=== PATIENT | female | born 1955 | race Caucasian/White ===

== ENCOUNTER → 2017-11-16 | Outpatient (CLI) | payer MEDICARE ==
[2017-11-16 15:40] LABS: APPEARANCE,URINE SLIGHTLY-CLOUDY; BILIRUBIN,URINE NEGATIVE (NEGATIVE); COLOR,URINE YELLOW; GLUCOSE, URINE NEGATIVE (NEGATIVE); KETONES,URINE 20 mg/dL (NEGATIVE); LEUKOCYTE ESTERASE,URINE LARGE (NEGATIVE); NITRITE,URINE NEGATIVE (NEGATIVE); PROTEIN,URINE NEGATIVE (NEGATIVE); URINE SPECIFIC GRAVITY 1.003; UROBILINOGEN,URINE NEGATIVE mg/dL (<2.0)
== END ==
LOC: OD 14:36
PROVIDERS: ATTEND Urology
DX: R30.0 Dysuria (principal)
CPT/HCPCS: 81001; 87086; 87088; 87186

== ENCOUNTER 2018-05-02 15:29 | Emergency (ER) | payer MEDICARE ==
[2018-05-02] MEDS ORDERED: NORMAL SALINE 1000 ML 1,000 ML IV ONE ×2 (16:16→20:35)
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
--- NOTE | 2018-05-02 16:53 | RADIOLOGY REPORT (SQ) ---
EXAM DESCRIPTION: KUB/ABDOMEN (SINGLE VIEW) COMPLETED DATE/TIME: 05/02/2018 4:44 pm REASON FOR STUDY: Nausea vomiting COMPARISON: 11/08/2011. NUMBER OF VIEWS: One view. TECHNIQUE: Supine radiographic image of the abdomen acquired. LIMITATIONS: None. FINDINGS: BOWEL GAS PATTERN: Normal bowel gas pattern. No dilated loops. CALCIFICATIONS: No suspicious calcifications. SOFT TISSUES: No gross mass or suggestion of organomegaly. HARDWARE: Spinal hardware. BONES: Degenerative changes in the spine particularly at the L3-L4 disc level. No acute findings. OTHER: No other significant finding. IMPRESSION: NO RADIOGRAPHIC EVIDENCE FOR ACUTE ABDOMINAL DISEASE. TECHNICAL DOCUMENTATION: JOB ID: [id number] [employer]- All Rights Reserved Reading location - IP/workstation name: [email or web address]
[2018-05-02 17:29] LABS: HEMATOCRIT 38.7 % (36.0-47.0); MEAN CORPUSCULAR HEMOGLOBIN 28.9 pg (27.0-33.4); MEAN CORPUSCULAR HGB CONC 33.4 g/dL (32.0-36.0); MEAN CORPUSCULAR VOLUME 86 fl (80-97); PLATELET COUNT 363 10^3/uL (150-450); RED BLOOD COUNT 4.48 10^6/uL (3.72-5.28); RED CELL DISTRIBUTION WIDTH 14.8 % (11.5-14.0)
[2018-05-02 17:47] LABS: ABSOLUTE MONOCYTES # (MANUAL) 0.5 10^3/uL (0.1-1.4); ABSOLUTE NEUTROPHILS# (MANUAL) 12.6 10^3/uL (1.7-8.2); BASOPHILS % (MANUAL) 0 % (0-2); EOSINOPHILS % (MANUAL) 0 % (0-6); LYMPHOCYTES % (MANUAL) 13 % (13-45); MONOCYTES % (MANUAL) 3 % (3-13); SEGMENTED NEUTROPHILS % (MAN) 84 % (42-78); TOTAL CELLS COUNTED 100
[2018-05-02 17:49] LABS: ANISOCYTOSIS SLIGHT; PLATELET COMMENT ADEQUATE
[2018-05-02 18:21] LABS: ALANINE AMINOTRANSFERASE 17 U/L (9-52); ALBUMIN 2.9 g/dL (3.5-5.0); ALKALINE PHOSPHATASE 112 U/L (38-126); ANION GAP 14 (5-19); ASPARTATE AMINO TRANSFERASE 15 U/L (14-36); BILIRUBIN,DIRECT 0.4 mg/dL (0.0-0.4); BILIRUBIN,TOTAL 0.5 mg/dL (0.2-1.3); BLOOD UREA NITROGEN 37 mg/dL (7-20); CALCIUM 9.2 mg/dL (8.4-10.2); CARBON DIOXIDE 22 mmol/L (22-30); CHLORIDE 104 mmol/L (98-107); GLUCOSE 115 mg/dL (75-110); POTASSIUM 4.3 mmol/L (3.6-5.0); SODIUM 140.3 mmol/L (137-145); TOTAL PROTEIN 5.5 g/dL (6.3-8.2)
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
[2018-05-02 19:57] LABS: APPEARANCE,URINE SLIGHTLY-CLOUDY; BILIRUBIN,URINE NEGATIVE (NEGATIVE); COLOR,URINE YELLOW; GLUCOSE, URINE NEGATIVE (NEGATIVE); KETONES,URINE NEGATIVE (NEGATIVE); LEUKOCYTE ESTERASE,URINE LARGE (NEGATIVE); NITRITE,URINE NEGATIVE (NEGATIVE); PROTEIN,URINE NEGATIVE (NEGATIVE); UROBILINOGEN,URINE NEGATIVE mg/dL (<2.0)
[2018-05-02] MEDS ORDERED: NORMAL SALINE 1000 ML 1,000 ML IV PRN (20:18)
[2018-05-02] MEDS ORDERED: CEFTRIAXONE INJ 1000 MG VIAL IV ONE (20:19)
[2018-05-02 22:20] VITALS: BP 81/52
== END 2018-05-02 22:35 | disposition home or self-care (01) ==
LOC: ER 15:29
DX: T83.511S Infection and inflammatory reaction due to indwelling urethral catheter, sequela (principal); L89.90 Pressure ulcer of unspecified site, unspecified stage; R42 Dizziness and giddiness; R11.2 Nausea with vomiting, unspecified; I95.9 Hypotension, unspecified; I10 Essential (primary) hypertension; E11.9 Type 2 diabetes mellitus without complications
CPT/HCPCS: 99285; 96361; 51701; 96365; 36415; 87086; 85025; 80053; 81001; 74018; J0696; J7030

== ENCOUNTER → 2018-06-05 | Outpatient (CLI) | payer MEDICARE ==
--- NOTE | 2018-06-05 11:47 | RADIOLOGY REPORT (SQ) ---
EXAM DESCRIPTION: PELVIS AP COMPLETED DATE/TIME: 06/05/2018 11:37 am REASON FOR STUDY: PRESSURE ULCER STAGE IV SACRUM L89.154 PRESSURE ULCER OF SACRAL REGION, STAGE 4 COMPARISON: None. NUMBER OF VIEWS: One view TECHNIQUE: AP Pelvis LIMITATIONS: None. FINDINGS: MINERALIZATION: Osteopenia. No obvious osteomyelitis. HIPS: No acute fracture or dislocation. No worrisome bone lesions. PELVIS AND SACRUM: No acute fracture or dislocation. No worrisome bone lesions. PUBIS AND ISCHIUM: No acute fracture. LOWER LUMBAR SPINE: Degenerative disc disease at L3-4. SOFT TISSUES: No findings. OTHER: No other significant finding. IMPRESSION: No obvious osteomyelitis. TECHNICAL DOCUMENTATION: JOB ID: [id number] [employer]- All Rights Reserved Reading location - IP/workstation name: [email or web address]
[2018-06-05 11:59] LABS: ABSOLUTE EOSINOPHILS # (AUTO) 0.1 10^3/uL (0.0-0.6); ABSOLUTE LYMPHOCYTES (AUTO) 0.9 10^3/uL (0.5-4.7); ABSOLUTE MONOCYTES (AUTO) 0.5 10^3/uL (0.1-1.4); ABSOLUTE NEUT (AUTO) 9.8 10^3/uL (1.7-8.2); BASOPHILS % (AUTO) 0.3 % (0-2); EOSINOPHILS % (AUTO) 0.7 % (0-6); HEMATOCRIT 37.2 % (36.0-47.0); HEMOGLOBIN 12.2 g/dL (12.0-15.5); MEAN CORPUSCULAR HEMOGLOBIN 27.9 pg (27.0-33.4); MEAN CORPUSCULAR HGB CONC 32.8 g/dL (32.0-36.0); MEAN CORPUSCULAR VOLUME 85 fl (80-97); MONOCYTES % (AUTO) 4.3 % (3-13); PLATELET COUNT 441 10^3/uL (150-450); RED BLOOD COUNT 4.38 10^6/uL (3.72-5.28); RED CELL DISTRIBUTION WIDTH 14.2 % (11.5-14.0); SEGMENTED NEUTROPHILS % (AUTO) 86.7 % (42-78); TOTAL CELLS COUNTED % (AUTO) 100 %; WHITE BLOOD COUNT 11.3 10^3/uL (4.0-10.5)
[2018-06-05 12:31] LABS: ALANINE AMINOTRANSFERASE 14 U/L (9-52); ALKALINE PHOSPHATASE 62 U/L (38-126); ANION GAP 7 (5-19); ASPARTATE AMINO TRANSFERASE 13 U/L (14-36); BILIRUBIN,DIRECT 0.4 mg/dL (0.0-0.4); BILIRUBIN,TOTAL 0.5 mg/dL (0.2-1.3); BLOOD UREA NITROGEN 21 mg/dL (7-20); C-REACTIVE PROTEIN 52.6 mg/L (<10.0); CALCIUM 8.9 mg/dL (8.4-10.2); CARBON DIOXIDE 27 mmol/L (22-30); CHLORIDE 105 mmol/L (98-107); GLUCOSE 93 mg/dL (75-110); POTASSIUM 4.2 mmol/L (3.6-5.0); SODIUM 138.8 mmol/L (137-145); TOTAL PROTEIN 5.6 g/dL (6.3-8.2)
[2018-06-05 12:34] LABS: ERYTHROCYTE SEDIMENTATION RATE 48 mm/hr (0-30)
== END ==
LOC: OD 10:55
PROVIDERS: ATTEND Nurse Practitioner
DX: L89.154 Pressure ulcer of sacral region, stage 4 (principal); M51.36 Other intervertebral disc degeneration, lumbar region
CPT/HCPCS: 36415; 72170; 80053; 85025; 85652; 86140

== ENCOUNTER 2018-07-02 12:43 | Day surgery (SDC) | payer MEDICARE ==
[2018-07-01 10:47] LABS: HEMATOCRIT 43.3 % (36.0-47.0); HEMOGLOBIN 14.4 g/dL (12.0-15.5); MEAN CORPUSCULAR HGB CONC 33.4 g/dL (32.0-36.0); MEAN CORPUSCULAR VOLUME 87 fl (80-97); PLATELET COUNT 354 10^3/uL (150-450); RED BLOOD COUNT 4.98 10^6/uL (3.72-5.28); RED CELL DISTRIBUTION WIDTH 15.8 % (11.5-14.0); WHITE BLOOD COUNT 10.2 10^3/uL (4.0-10.5)
[2018-07-01 11:17] LABS: ANION GAP 9 (5-19); BLOOD UREA NITROGEN 33 mg/dL (7-20); CALCIUM 10.2 mg/dL (8.4-10.2); CARBON DIOXIDE 28 mmol/L (22-30); CHLORIDE 103 mmol/L (98-107); GLUCOSE 88 mg/dL (75-110); POTASSIUM 4.6 mmol/L (3.6-5.0); SODIUM 139.6 mmol/L (137-145)
[~2018-07-02 12:43] MED LIST: BACITRACIN INJ 50,000 UNIT VIAL ONE; BUPIVACAINE HCL 0.25 % INJ/PF (2.5 MG/1 ML) 30 ML VIAL ONE; CEFAZOLIN 1 GM/D5W RTU 1 GM/50 ML RTUPB IV SCH; LACTATED RINGERS 1000 ML IV PRN; LIDOCAINE 0.5% INJ-PF (5 MG/ML) 50 ML SDV ONE; LIDOCAINE 0.5% INJ-PF (5 MG/ML) 50 ML SDV SUBCUT PRN
[2018-07-02] MEDS ORDERED: CEFAZOLIN 1 GM/D5W RTU 1 GM/50 ML RTUPB IV ONE (13:06)
--- NOTE | 2018-07-02 14:06 | PDOC H&P ---
General Chief Complaint: This patient is admitted because of a large decubitus ulcer of the left ischial area, with a small skin opening. Suspicion of bony involvement. - Diagnosis (2) Pressure ulcer, stage IV Is this a Current Diagnosis?: Yes (4) Hyperlipidemia Is this a Current Diagnosis?: Yes - Current Medications/Allergies Home Medications: Baclofen [Baclofen 10 mg Tablet] 10 mg PO TID 09/28/14 Lisinopril 10 mg PO QHS 09/28/14 Naproxen Sodium 550 mg PO BID PRN 09/28/14 Oxybutynin Chloride 5 mg PO TID 09/28/14 Prednisone 10 mg PO DAILY 09/28/14 Levothyroxine Sodium [Synthroid 0.088 mg Tablet] 88 mcg PO DAILY 02/08/18 Ascorbic Acid [Vitamin C 500 mg Tablet] 500 mg PO DAILY 06/27/18 Aspirin [Aspirin 81 mg Chewable Tablet] 81 mg PO DAILY 06/27/18 Atenolol [Tenormin] 12.5 mg PO QHS 06/27/18 Calcium Carbonate [Calcium] 600 mg PO BID 06/27/18 Allergies/Adverse Reactions: sulfamethoxazole [From Bactrim] Adverse Reaction (Intermediate, Verified 14:29) VOMITING trimethoprim [From Bactrim] Adverse Reaction (Intermediate, Verified 06/27/18 14:29) VOMITING Past Medical History Cardiac Medical History: Reports: Hypertension Denies: Coronary Artery Disease, Myocardial Infarction Pulmonary Medical History: Denies: Asthma, Bronchitis, Chronic Obstructive Pulmonary Disease (COPD), Pneumonia, Tuberculosis Neurological Medical History: Denies: Seizures Endocrine Medical History: Reports: Diabetes Mellitus Type 2, Hypothyroidism Denies: Diabetes Mellitus Type 1 - borderline Musculoskeltal Medical History: Reports: Arthritis Psychiatric Medical History: Reports: Depression - seasonal Hematology: Reports: Anemia Past Surgical History Past Surgical History: Reports: Hysterectomy, Orthopedic Surgery - ankles bilat, spinal cord, Tubal Ligation Denies: Pacemaker Family History Family History: Reviewed & Not Pertinent Parental Family History Reviewed: No Children Family History Reviewed: No Sibling(s) Family History Reviewed.: No Social History Smoking Status: Never Smoker Frequency of Alcohol Use: None Hx Recreational Drug Use: No Hx Prescription Drug Abuse: No Physical Exam Vital Signs: Temp Pulse Resp BP Pulse Ox 98.2 F 80 16 96/52 L 95 07/02/18 13:17 07/02/18 13:17 07/02/18 13:17 07/02/18 13:17 07/02/18 13:17 Intake & Output 07/01/18 07/02/18 07/03/18 06:59 06:59 06:59 Intake Total 0 Balance 0 Weight 76.66 kg Additional comments: Constitutional: Well-developed well-nourished lady. No apparent acute distress. Eyes: Mucous membranes pink and moist, pupils equal and reactive to light. Conjunctiva normal. Cornea normal. ENT: Hearing grossly normal. External pinna normal to inspection. Teeth intact. Tongue normal to inspection. Cardiac: Heart sounds normal. Respiratory breath sounds are present bilaterally, normal. Normal respiratory effort. Skin: Large deep ulcer of the left ischial area about 5 cm externally. Psychiatric: Judgment, memory, insight seem normal. Mood is pleasant and yana ropriate. Extremities: Upper extremities show normal range of movement. Pulses present noted to the radial arteries. Capillary refill normal. No cyanosis noted. No muscle wasting noted. Lower extremities show paraplegia. Impression/Plan Plan: The patient is admitted for debridement, increasing the opening size and removing any necrotic or nonviable tissues and also for culture possibly bone culture. The risks include infection, bleeding, heart, lung complications, and other structures. The patient and her are accepting of the risks and wished to proceed. The hope is to do this procedure and be able to discharge the patient home for follow-up in the wound clinic later this week.
[2018-07-02] MEDS ORDERED: LIDOCAINE 2% INJ-PF (20 MG/ML) 10 ML AMPUL ONE (14:10)
[2018-07-02] MEDS ORDERED: FENTANYL CITRATE INJ/PF 100 MCG/2 ML AMPUL ONE (14:10)
[2018-07-02] MEDS ORDERED: MIDAZOLAM 2 MG/2 ML INJ ONE (14:10)
[2018-07-02] MEDS ORDERED: ONDANSETRON HCL INJ/PF 4 MG/2 ML SDV ONE (14:10)
[2018-07-02] MEDS ORDERED: PROPOFOL INJ 200 MG/20 ML VIAL IV ONE (14:11)
[2018-07-02] MEDS ORDERED: KETAMINE HCL INJ 500 MG/10 ML VIAL ONE (14:15)
[2018-07-02] MEDS ORDERED: MORPHINE SULFATE 10 MG/ML INJ IV PRN (14:53)
[2018-07-02] MEDS ORDERED: PROMETHAZINE HCL INJ 25 MG/1 ML VIAL IV PRN ×2 (14:53)
[2018-07-02] MEDS ORDERED: DIPHENHYDRAMINE HCL 50 MG/ML VIAL IV PRN (14:53)
[2018-07-02] MEDS ORDERED: FENTANYL CITRATE INJ/PF 100 MCG/2 ML AMPUL IV PRN ×3 (14:53)
[2018-07-02] MEDS ORDERED: MEPERIDINE HCL/PF INJ 25 MG/1 ML DISP.SYRIN IV PRN (14:53)
[2018-07-02] MEDS ORDERED: ONDANSETRON HCL INJ/PF 4 MG/2 ML SDV IV PRN (14:53)
--- NOTE | 2018-07-02 15:04 | Discharge Summary ---
Discharge Summary (SDC) - Discharge Final Diagnosis: #1 stage IV pressure ulcer left ischium. 2. Paraplegia. 3. Diabetes mellitus type 2. 4. Hyperlipidemia. Date of Surgery: 07/02/18 Discharge Date: 07/02/18 Condition: Fair Treatment or Instructions: Discharge home [after recovery per ASU criteria]. Diet , diabetic as tolerated, when fully awake advance as tolerated. Activities within moderation encouraged. Follow up in my office by appointment in wound clinic on Sunday of this week. Call for appointment. Leave wounds [covered], [keep clean and dry, until office visit in 1 week]. Hold of on school/work [until evaluation in office]. Meds per med rec. May shower [in 48 hrs], [try to keep operated area as dry as possible]. Referrals: SHANIA RICHEY MD [Primary Care Provider] - Discharge Diet: Other (Comments) - Diabetic. Respiratory Treatments at Home: Deep Breathing/Coughing Discharge Activity: Activity As Tolerated Report the Following to Your Physician Immediately: Shortness of Breath, Unusual Bleeding
--- NOTE | 2018-07-02 15:08 | Operative Report ---
Operative Report DATE OF SURGERY: 07/02/18 PREOPERATIVE DIAGNOSIS: #1 stage IV pressure ulcer left ischium. 2. Paraplegi a. 3. Diabetes mellitus type 2. 4. Hyperlipidemia. POSTOPERATIVE DIAGNOSIS: #1 stage IV pressure ulcer left ischium. 2. Paraplegia. 3. Diabetes mellitus type 2. 4. Hyperlipidemia. OPERATION: Debridement of left ischial pressure ulcer. Sharp, surgical, excisional. SURGEON: SAMIR HARMON PEDIATRIC LPN: None. ANESTHESIA: LMAC TISSUE REMOVED OR ALTERED: Non viable granulation tissue. Portion of the left ischial bone. Skin and granulation tissue COMPLICATIONS: None. ESTIMATED BLOOD LOSS: 10 mL. INTRAOPERATIVE FINDINGS: Of a fairly small opening about 5 cm with a large cavity in the subcutaneous tissue extending down to the palpable left ischium. Considerable amount of exuberance point of viable granulation tissue. Exposed left ischium. PROCEDURE: PROCEDURE: The left ischial area was prepared with [Betadine] and draped out with sterile linen. After the"universal time-out", in which it was confirmed that the patient [did receive antibiotic], the procedure commenced. The patient was appropriately anesthetized. The wound was probed. The wound was debrided of non viable tissue using cautery to remove the islands of necrotic granulation tissue. This was done extensively and circumferentially. The overlying skin and subcutaneous tissues were excised as well to leave an opening about 8 cm across. [Rongeurs] were used to remove portions of the exposed bone which were sent for culture. The wound was cleaned. Bone wax was applied to the ischium. Surgicel to the remainder of the tissue. .The wound was now i clean and [Surgicel] placed within it, dressed with [Kerlix] and the procedure concluded.
[2018-07-02 16:29] VITALS: BP 90/54
== END 2018-07-02 16:35 | disposition home or self-care (01) ==
LOC: OROUT 12:43
PROVIDERS: ATTEND Surgery
DX: L89.224 Pressure ulcer of left hip, stage 4 (principal); G82.20 Paraplegia, unspecified; E11.9 Type 2 diabetes mellitus without complications; E78.5 Hyperlipidemia, unspecified; I10 Essential (primary) hypertension; E03.9 Hypothyroidism, unspecified; D64.9 Anemia, unspecified; R00.1 Bradycardia, unspecified; Z79.01 Long term (current) use of anticoagulants; Z79.899 Other long term (current) drug therapy; Z79.1 Long term (current) use of non-steroidal anti-inflammatories (NSAID); Z79.82 Long term (current) use of aspirin; Z01.818 Encounter for other preprocedural examination
CPT/HCPCS: 36415; 87070; 87205; 85027; 87075; 80048; 88304 ×2; 11044; J2250; J3490 ×3; J0690; J3010; J2405; J2704; 300

== ENCOUNTER → 2018-07-19 | Outpatient (CLI) | payer MEDICARE ==
[2018-07-19 13:26] LABS: ABSOLUTE LYMPHOCYTES (AUTO) 0.7 10^3/uL (0.5-4.7); ABSOLUTE MONOCYTES (AUTO) 0.4 10^3/uL (0.1-1.4); ABSOLUTE NEUT (AUTO) 9.9 10^3/uL (1.7-8.2); BASOPHILS % (AUTO) 0.3 % (0-2); EOSINOPHILS % (AUTO) 0.1 % (0-6); HEMATOCRIT 42.8 % (36.0-47.0); HEMOGLOBIN 14.4 g/dL (12.0-15.5); LYMPHOCYTES % (AUTO) 5.9 % (13-45); MEAN CORPUSCULAR HEMOGLOBIN 28.8 pg (27.0-33.4); MEAN CORPUSCULAR HGB CONC 33.5 g/dL (32.0-36.0); MEAN CORPUSCULAR VOLUME 86 fl (80-97); MONOCYTES % (AUTO) 3.3 % (3-13); PLATELET COUNT 366 10^3/uL (150-450); RED BLOOD COUNT 4.99 10^6/uL (3.72-5.28); RED CELL DISTRIBUTION WIDTH 15.2 % (11.5-14.0); SEGMENTED NEUTROPHILS % (AUTO) 90.4 % (42-78); TOTAL CELLS COUNTED % (AUTO) 100 %
--- NOTE | 2018-07-19 13:31 | RADIOLOGY REPORT (SQ) ---
EXAM DESCRIPTION: CHEST PA/LATERAL COMPLETED DATE/TIME: 07/19/2018 1:15 pm REASON FOR STUDY: PNEUMOTHORAX COMPARISON: Two-view chest 09/28/2014, 06/05/2012 EXAM PARAMETERS: NUMBER OF VIEWS: two views TECHNIQUE: Digital Frontal and Lateral radiographic views of the chest acquired. RADIATION DOSE: NA LIMITATIONS: none FINDINGS: LUNGS AND PLEURA: No opacities, masses or pneumothorax. No pleural effusion. MEDIASTINUM AND HILAR STRUCTURES: No masses or contour abnormalities. HEART AND VASCULAR STRUCTURES: Heart normal size. No evidence for failure. BONES: Guzman rods over the lower thoracic and lumbar spine HARDWARE: None in the chest. OTHER: No other significant finding. IMPRESSION: NO SIGNIFICANT RADIOGRAPHIC FINDING IN THE CHEST. TECHNICAL DOCUMENTATION: JOB ID: [id number] [employer]- All Rights Reserved Reading location - IP/workstation name: [email or web address]
--- NOTE | 2018-07-19 13:35 | RADIOLOGY REPORT (SQ) ---
EXAM DESCRIPTION: PELVIS AP COMPLETED DATE/TIME: 07/19/2018 1:15 pm REASON FOR STUDY: PRESSURE ULCER OF LEFT BUTTOCK L89.324 PRESSURE ULCER OF LEFT BUTTOCK, STAGE 4 COMPARISON: 06/05/2018 NUMBER OF VIEWS: One view TECHNIQUE: AP Pelvis LIMITATIONS: None. FINDINGS: MINERALIZATION: Osteopenia. HIPS: No acute fracture or dislocation. Stable small bone island left femoral neck. PELVIS AND SACRUM: No acute fracture or dislocation. No worrisome bone lesions. PUBIS AND ISCHIUM: No acute fracture. LOWER LUMBAR SPINE: Degenerative disc disease mid-lower lumbar spine, unchanged finding. SOFT TISSUES: No findings. OTHER: No catheter device overlies the left lower quadrant of the abdomen. IMPRESSION: 1. No significant interval changes since the prior study dated 06/05/2018. No acute osse ous findings. COMMENT: Pelvic fractures are often occult on plain radiographs. If strong clinical suspicion for f racture, recommend CT or MR. TECHNICAL DOCUMENTATION: JOB ID: [id number] [employer]- All Rights Reserved Reading location - IP/workstation name: [email or web address]
[2018-07-19 13:49] LABS: ALANINE AMINOTRANSFERASE 22 U/L (9-52); ALBUMIN 4.1 g/dL (3.5-5.0); ALKALINE PHOSPHATASE 68 U/L (38-126); ANION GAP 12 (5-19); ASPARTATE AMINO TRANSFERASE 21 U/L (14-36); BILIRUBIN,DIRECT 0.2 mg/dL (0.0-0.4); BILIRUBIN,TOTAL 0.6 mg/dL (0.2-1.3); BLOOD UREA NITROGEN 32 mg/dL (7-20); C-REACTIVE PROTEIN 47.7 mg/L (<10.0); CALCIUM 10.2 mg/dL (8.4-10.2); CARBON DIOXIDE 24 mmol/L (22-30); CHLORIDE 102 mmol/L (98-107); GLUCOSE 104 mg/dL (75-110); POTASSIUM 4.6 mmol/L (3.6-5.0); TOTAL PROTEIN 6.5 g/dL (6.3-8.2)
[2018-07-19 14:02] LABS: ERYTHROCYTE SEDIMENTATION RATE 29 mm/hr (0-30)
== END ==
LOC: WC 12:22
PROVIDERS: ATTEND Surgery
DX: L89.324 Pressure ulcer of left buttock, stage 4 (principal); J93.9 Pneumothorax, unspecified
CPT/HCPCS: 36415; 71046; 72170; 80053; 85025; 85652; 86140

== ENCOUNTER 2018-07-23 13:33 | Emergency (ER) | payer MEDICARE ==
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
[2018-07-23 16:34] LABS: AMORPHOUS SEDIMENT,URINE TRACE /HPF; APPEARANCE,URINE SLIGHTLY-CLOUDY; BILIRUBIN,URINE NEGATIVE (NEGATIVE); COLOR,URINE YELLOW; GLUCOSE, URINE NEGATIVE (NEGATIVE); KETONES,URINE 20 mg/dL (NEGATIVE); LEUKOCYTE ESTERASE,URINE MODERATE (NEGATIVE); NITRITE,URINE NEGATIVE (NEGATIVE); PROTEIN,URINE NEGATIVE (NEGATIVE); URINE SPECIFIC GRAVITY 1.014; UROBILINOGEN,URINE NEGATIVE mg/dL (<2.0)
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
[2018-07-23 17:16] VITALS: BP 98/61
== END 2018-07-23 17:27 | disposition home or self-care (01) ==
LOC: ER 13:33
DX: N39.0 Urinary tract infection, site not specified (principal); I10 Essential (primary) hypertension; E11.9 Type 2 diabetes mellitus without complications; E03.9 Hypothyroidism, unspecified; G82.20 Paraplegia, unspecified; Z88.3 Allergy status to other anti-infective agents; Z90.710 Acquired absence of both cervix and uterus
CPT/HCPCS: 81001; 87086; 87088; 87186; 99283

== ENCOUNTER 2018-08-26 11:44 | Day surgery (SDC) | payer MEDICARE ==
[2018-08-21 12:13] LABS: APPEARANCE,URINE SLIGHTLY-CLOUDY; BILIRUBIN,URINE NEGATIVE (NEGATIVE); COLOR,URINE YELLOW; GLUCOSE, URINE NEGATIVE (NEGATIVE); KETONES,URINE TRACE mg/dL (NEGATIVE); LEUKOCYTE ESTERASE,URINE SMALL (NEGATIVE); NITRITE,URINE NEGATIVE (NEGATIVE); PROTEIN,URINE NEGATIVE (NEGATIVE); URINE SPECIFIC GRAVITY 1.019; UROBILINOGEN,URINE NEGATIVE mg/dL (<2.0)
[2018-08-21 12:15] LABS: INTERNATIONAL RATION (INR) 0.94
[2018-08-21 12:16] LABS: PARTIAL THROMBOPLASTIN TIME 34.6 SEC (23.5-35.8)
--- NOTE | 2018-08-21 13:14 | RADIOLOGY REPORT (SQ) ---
EXAM DESCRIPTION: CHEST PA/LATERAL COMPLETED DATE/TIME: 08/21/2018 12:09 pm REASON FOR STUDY: PRE OP COMPARISON: 2014. 07/19/2018. TECHNIQUE: Frontal and lateral radiographic views of the chest acquired. NUMBER OF VIEWS: Two view. LIMITATIONS: None. FINDINGS: LUNGS AND PLEURA: No opacities, masses or pneumothorax. No pleural effusion. MEDIASTINUM AND HILAR STRUCTURES: No masses or contour abnormalities. HEART AND VASCULAR STRUCTURES: Heart normal size. No evidence for failure. BONES: No acute findings. HARDWARE: None in the chest. OTHER: No other significant finding. IMPRESSION: NO SIGNIFICANT RADIOGRAPHIC FINDING IN THE CHEST. TECHNICAL DOCUMENTATION: JOB ID: [id number] [employer]- All Rights Reserved Reading location - IP/workstation name: [email or web address]
--- NOTE | 2018-08-21 23:32 | EKG REPORT ---
SEVERITY:- NORMAL ECG - SINUS RHYTHM : Confirmed by: Bailee Villanueva 21-Aug-2018 23:31:23
[~2018-08-26 11:44] MED LIST changes: -BACITRACIN INJ 50,000 UNIT VIAL ONE; -BUPIVACAINE HCL 0.25 % INJ/PF (2.5 MG/1 ML) 30 ML VIAL ONE; +CEFAZOLIN 1 GM/D5W RTU 1 GM/50 ML RTUPB IV PRN; -CEFAZOLIN 1 GM/D5W RTU 1 GM/50 ML RTUPB IV SCH; -LIDOCAINE 0.5% INJ-PF (5 MG/ML) 50 ML SDV ONE
[2018-08-26] MEDS ORDERED: CEFAZOLIN 1 GM/D5W RTU 1 GM/50 ML RTUPB IV ONE (13:13)
[2018-08-26] MEDS ORDERED: ACETAMINOPHEN 1,000 MG/100 ML RTUPB IV ONE (13:20)
[2018-08-26] MEDS ORDERED: ONDANSETRON HCL INJ/PF 4 MG/2 ML SDV ONE (13:20)
[2018-08-26] MEDS ORDERED: EPHEDRINE SULFATE INJ 50 MG/1 ML AMPULE ONE (13:20)
[2018-08-26] MEDS ORDERED: FENTANYL CITRATE INJ/PF 100 MCG/2 ML AMPUL ONE (13:20)
[2018-08-26] MEDS ORDERED: PROPOFOL INJ 200 MG/20 ML VIAL IV ONE (13:20)
[2018-08-26] MEDS ORDERED: MIDAZOLAM 2 MG/2 ML INJ ONE (13:20)
--- NOTE | 2018-08-26 13:33 | PDOC H&P ---
General Chief Complaint: This patient is being treated in wound care for a large chronic left ischial ulcer. She is brought in for debridement of necrotic and abnormal tissues in the hope of enhancing wound healing. - Current Medications/Allergies Home Medications: Baclofen [Baclofen 10 mg Tablet] 10 mg PO TID 09/28/14 Lisinopril 10 mg PO QHS 09/28/14 Naproxen Sodium 550 mg PO BID PRN 09/28/14 Oxybutynin Chloride 5 mg PO TID 09/28/14 Prednisone 10 mg PO DAILY 09/28/14 Levothyroxine Sodium [Synthroid 0.088 mg Tablet] 88 mcg PO DAILY 02/08/18 Ascorbic Acid [Vitamin C 500 mg Tablet] 500 mg PO DAILY 06/27/18 Aspirin [Aspirin 81 mg Chewable Tablet] 81 mg PO DAILY 06/27/18 Atenolol [Tenormin] 12.5 mg PO QHS 06/27/18 Calcium Carbonate [Calcium] 600 mg PO BID 06/27/18 Amoxicillin Trihydrate [Amoxil 875 mg Tablet] 1 tab PO BID 08/21/18 Multivitamin [Multivitamins] 1 each PO DAILY 08/21/18 Allergies/Adverse Reactions: sulfamethoxazole [From Bactrim] Adverse Reaction (Intermediate, Verified 07/23/18 15:01) VOMITING trimethoprim [From Bactrim] Adverse Reaction (Intermediate, Verified 07/23/18 15:01) VOMITING nitrofurantoin [From Macrobid] Adverse Reaction (Verified 08/21/18 11:34) Past Medical History Cardiac Medical History: Denies: Coronary Artery Disease, Myocardial Infarction, Hypertension Pulmonary Medical History: Denies: Asthma, Bronchitis, Chronic Obstructive Pulmonary Disease (COPD), Pneumonia, Tuberculosis Neurological Medical History: Denies: Seizures Endocrine Medical History: Reports: Diabetes Mellitus Type 2, Hypothyroidism Denies: Diabetes Mellitus Type 1 - borderline Musculoskeltal Medical History: Reports: Arthritis Psychiatric Medical History: Reports: Depression - seasonal Hematology: Reports: Anemia Past Surgical History Past Surgical History: Reports: Hysterectomy, Orthopedic Surgery - ankles bilat, spinal cord, Tubal Ligation Denies: Pacemaker Family History Family History: Reviewed & Not Pertinent Parental Family History Reviewed: No Children Family History Reviewed: No Sibling(s) Family History Reviewed.: No Social History Smoking Status: Never Smoker Frequency of Alcohol Use: None Hx Recreational Drug Use: No Hx Prescription Drug Abuse: No Physical Exam Vital Signs: Temp Pulse Resp BP Pulse Ox 76 16 99/59 L 93 08/21/18 11:26 08/21/18 11:26 08/21/18 11:26 08/21/18 11:26 Additional comments: Constitutional: Well-developed well-nourished lady, moderately increased body mass index. No apparent acute distress. Eyes: Mucous membranes pink and moist, pupils equal and reactive to light. Conjunctiva normal. Cornea normal. Wears spectacles. ENT: Hearing grossly normal. External pinna normal to inspection. Teeth intact. Tongue normal to inspection. Cardiac: Heart sounds 1 and 2 normal, no murmurs. Respiratory: Normal respiratory effort. Skin: Normal to inspection. About 5 x 5 x 8 cm deep left ischial pressure u lcer. Nonviable granulation tissue, profuse. Psychiatric: Judgment, memory, insight seem normal. Mood is pleasant and appropriate. Extremities: Upper extremities show normal range of movement. Pulses present noted to the radial arteries. Capillary refill normal. No cyanosis noted. No muscle wasting noted. Lower extremities show paralysis. Impression/Plan Plan: In this patient with a chronic left ischial ulcer, diligent efforts at wound care have been challenging. She has exuberant nonviable granulation tissue. The plan is to vigorously debride this area in order to set the stage for wound healing. Wound healing in any case is going to be prolonged. The procedure, its risks, benefits, expected expected outcome and alternatives are familiar to the patient and her .
[2018-08-26] MEDS ORDERED: SILVER SULFADIAZINE 1% CREAM 25 GM ONE (14:00)
[2018-08-26] MEDS ORDERED: COLLAGENASE CLOSTRIDIUM HIST. OINT 30 GM ONE (14:00)
[2018-08-26] MEDS ORDERED: LIDOCAINE 0.5% INJ-PF (5 MG/ML) 50 ML SDV ONE (14:00)
[2018-08-26] MEDS ORDERED: BUPIVACAINE HCL 0.25 % INJ/PF (2.5 MG/1 ML) 30 ML VIAL ONE (14:00)
[2018-08-26] MEDS ORDERED: BACITRACIN INJ 50,000 UNIT VIAL ONE (14:00)
[2018-08-26] MEDS ORDERED: FENTANYL CITRATE INJ/PF 100 MCG/2 ML AMPUL IV PRN ×3 (14:08)
[2018-08-26] MEDS ORDERED: DIPHENHYDRAMINE HCL 50 MG/ML VIAL IV PRN (14:08)
[2018-08-26] MEDS ORDERED: PROMETHAZINE HCL INJ 25 MG/1 ML VIAL IV PRN ×2 (14:08)
[2018-08-26] MEDS ORDERED: MEPERIDINE HCL/PF INJ 25 MG/1 ML DISP.SYRIN IV PRN (14:08)
[2018-08-26] MEDS ORDERED: MORPHINE SULFATE 10 MG/ML INJ IV PRN (14:08)
--- NOTE | 2018-08-26 15:15 | Discharge Summary ---
Discharge Summary (SDC) - Discharge Final Diagnosis: #1 stage IV left ischial pressure ulcer. 2. Paraplegia. 3. Diabetes mellitus type 2. 4. History of TIA. Date of Surgery: 08/26/18 Discharge Date: 08/26/18 Condition: Good Treatment or Instructions: Discharge home [after recovery per ASU criteria]. Diet , as tolerated, when fully awake advance as tolerated. Activities within moderation encouraged. Follow up in wound clinic by appointment on Sunday of this week. Call for appointment. Leave wounds [covered], [keep clean and dry, until wound clinic visit. Hold of on school/work [until evaluation in office]. Meds per med rec. Hold off anticoagulation until Sunday p.m. May shower [in 48 hrs], [try to keep operated area as dry as possible]. Referrals: SHANIA RICHEY MD [Primary Care Provider] - Discharge Diet: Other (Comments) - Diabetic. Respiratory Treatments at Home: Deep Breathing/Coughing Discharge Activity: Activity As Tolerated Report the Following to Your Physician Immediately: Shortness of Breath, Unusual Bleeding
--- NOTE | 2018-08-26 15:20 | Operative Report ---
Operative Report DATE OF SURGERY: 08/26/18 PREOPERATIVE DIAGNOSIS: #1 stage IV left ischial pressure ulcer. 2. Paraplegi a. 3. Diabetes mellitus type 2. 4. History of TIA. POSTOPERATIVE DIAGNOSIS: #1 stage IV left ischial pressure ulcer. 2. Paraplegia. 3. Diabetes mellitus type 2. 4. History of TIA. OPERATION: Debridement of left ischial ulcer. Sharp, surgical, excisional. SURGEON: SAMIR HARMON BEHAVIORAL PSYCHOLOGIST: None. ANESTHESIA: LMAC TISSUE REMOVED OR ALTERED: Fungating, partially nonviable granulation tissue left ischial ulcer. Sent for pathology. COMPLICATIONS: None. ESTIMATED BLOOD LOSS: 10 mL. INTRAOPERATIVE FINDINGS: Of a large left ischial ulcer about 5 x 5 x 10 cm deep. Much of the calderón including the deep aspect over the ischial tuberosity and tendons has a peculiar fungating type of tissue, poorly vascularized. This was excised to the greatest extent possible. Healthy looking tissues appear. Small bleeding points cauterized, suture ligature done at the bleeding point over the tibial tuberosity. Very clean and dry tissues at the end of the procedure. PROCEDURE: PROCEDURE: The [left foot ]was prepared with [Betadine] and draped out with sterile linen. After the"universal time-out", in which it was confirmed that the patient [did receive antibiotic], the procedure commenced. The patient was appropriately anesthetized. The wound was probed. . The wound was debrided of non viable tissue using[Rongeurs] with removal of loose debris, as well. Debridement was done with cautery both cutting and coagulating. This was quite time consuming and tedious in this large wound. A persisting oozing area over the ischial area was sutured using 3-0 PDS to approximate the tendon. This is very effective and completely controlled the bleeding point. The wound was irrigated with [Peroxide] The wound was now irrigated with saline and [Surgicel] placed within it, dressed with [Kerlix] and the procedure concluded.
[2018-08-26 17:11] VITALS: BP 96/52
== END 2018-08-26 16:50 | disposition home or self-care (01) ==
LOC: OROUT 11:44
PROVIDERS: ATTEND Surgery
DX: L89.324 Pressure ulcer of left buttock, stage 4 (principal); G82.20 Paraplegia, unspecified; E11.9 Type 2 diabetes mellitus without complications; E03.9 Hypothyroidism, unspecified; D64.9 Anemia, unspecified; Z86.73 Personal history of transient ischemic attack (TIA), and cerebral infarction without residual deficits; Z79.899 Other long term (current) drug therapy; Z79.1 Long term (current) use of non-steroidal anti-inflammatories (NSAID); Z79.82 Long term (current) use of aspirin; Z88.2 Allergy status to sulfonamides
CPT/HCPCS: 93010; 93005; 36415; 85610; 85730; 81001; 88304 ×2; 71046; 11042; J2250; J3490 ×3; J0690; J2704; J0131; 1120; J2405; J3010

== ENCOUNTER → 2018-08-27 | Outpatient (CLI) | payer MEDICARE ==
--- NOTE | 2018-08-27 12:47 | RADIOLOGY REPORT (SQ) ---
EXAM DESCRIPTION: PELVIS AP COMPLETED DATE/TIME: 08/27/2018 12:35 pm REASON FOR STUDY: ,PRESSURE ULCER OF LEFT BUTTOCK, STAGE 4 L89.324 PRESSURE ULCER OF LEFT BUTTOCK, STAGE 4 L97.322 NON-PRESSURE CHRONIC ULCER OF LEFT ANKLE W FAT LAYER COMPARISON: 07/19/2018 NUMBER OF VIEWS: One view TECHNIQUE: AP Pelvis LIMITATIONS: None. FINDINGS: MINERALIZATION: Osteopenia. HIPS: No acute fracture or dislocation. No worrisome bone lesions. PELVIS AND SACRUM: No acute fracture or dislocation. No worrisome bone lesions. PUBIS AND ISCHIUM: No acute fracture. LOWER LUMBAR SPINE: No significant findings as visualized. SOFT TISSUES: No findings. OTHER: No other significant finding. IMPRESSION: Stable conventional radiographs of the pelvis. No evidence of osteomyelitis. COMMENT: Pelvic fractures are often occult on plain radiographs. If strong clinical suspicion for f racture, recommend CT or MR. TECHNICAL DOCUMENTATION: JOB ID: [id number] [employer]- All Rights Reserved Reading location - IP/workstation name: [email or web address]
--- NOTE | 2018-08-27 12:48 | RADIOLOGY REPORT (SQ) ---
EXAM DESCRIPTION: FOOT LEFT COMPLETE COMPLETED DATE/TIME: 08/27/2018 12:35 pm REASON FOR STUDY: PRESSURE ULCER OF LEFT BUTTOCK, STAGE 4 L89.324 PRESSURE ULCER OF LEFT BUTTOCK, S TAGE 4 L97.322 NON-PRESSURE CHRONIC ULCER OF LEFT ANKLE W FAT LAYER COMPARISON: None. NUMBER OF VIEWS: Three views. TECHNIQUE: AP, lateral and oblique radiographic images acquired of the left foot. LIMITATIONS: None. FINDINGS: MINERALIZATION: Normal. BONES: No acute fracture or dislocation. No worrisome bone lesions. JOINTS: No effusions. SOFT TISSUES: No soft tissue swelling. No foreign body. OTHER: No other significant finding. IMPRESSION: NEGATIVE STUDY OF THE LEFT FOOT. NO RADIOGRAPHIC EVIDENCE OF ACUTE INJURY. TECHNICAL DOCUMENTATION: JOB ID: [id number] [employer]- All Rights Reserved Reading location - IP/workstation name: [email or web address]
--- NOTE | 2018-08-27 12:48 | RADIOLOGY REPORT (SQ) ---
EXAM DESCRIPTION: ANKLE LEFT COMPLETE COMPLETED DATE/TIME: 08/27/2018 12:35 pm REASON FOR STUDY: NON-PRESSURE CHRONIC ULCER OF LEFT ANKLE W FAT LAYER EXPOSED L89.324 PRESSURE ULC ER OF LEFT BUTTOCK, STAGE 4 L97.322 NON-PRESSURE CHRONIC ULCER OF LEFT ANKLE W FAT LAYER COMPARISON: None. NUMBER OF VIEWS: Three views. TECHNIQUE: AP, lateral, and oblique radiographic images acquired of the left ankle. LIMITATIONS: None. FINDINGS: MINERALIZATION: Normal. BONES: No acute fracture or dislocation. No worrisome bone lesions. JOINTS: No effusions. SOFT TISSUES: No soft tissue swelling. No foreign body. OTHER: No other significant finding. IMPRESSION: NEGATIVE STUDY OF THE LEFT ANKLE. NO RADIOGRAPHIC EVIDENCE OF ACUTE INJURY. TECHNICAL DOCUMENTATION: JOB ID: [id number] [employer]- All Rights Reserved Reading location - IP/workstation name: [email or web address]
== END ==
LOC: WC 12:05
PROVIDERS: ATTEND Surgery
DX: L89.324 Pressure ulcer of left buttock, stage 4 (principal); L97.322 Non-pressure chronic ulcer of left ankle with fat layer exposed
CPT/HCPCS: 72170

== ENCOUNTER → 2018-09-26 | Outpatient (CLI) | payer MEDICARE ==
--- NOTE | 2018-09-27 08:34 | XCELERA REPORT ---
[address] [address] Lower Extremity Arterial Evaluation Name: DINA HAHN Age: 63 yrs Gender: Female : 1955 Patient Status: Outpatient Patient Location: Study Date: 09/26/2018 11:13 AM Procedure: A color flow and duplex scan of the lower extremity arteries was performed bilaterally with velocity and waveform anaylsis. Reason For Study: LT ANKLE ULCER Ordering Physician: SAMIR PINTO Performed By: Genny Norris Measurements and Calculations Right Left WOOD FLOORING SPECIALIST PSV 103.0 157.9 cm/sec Prox PFA PSV -51.5 -79.1 cm/sec Prox SFA PSV 87.9 85.4 cm/sec Mid SFA PSV -75.0 -89.4 cm/sec Dist SFA PSV -69.1 -76.1 cm/sec Prox Pop A PSV 49.7 73.7 cm/sec Dist KRISTINE PSV 48.6 61.8 cm/sec Dist BUSINESS BANKING MANAGER PSV 58.9 64.6 cm/sec Eric Pedis PSV 35.5 49.3 cm/sec Right Side Arterial Evaluation Normal velocity and triphasic waveforms noted from the Common Femoral artery to the infrageniculate vessels . Ankle Brachial index 1.22. Left Side Arterial Evaluation Normal velocity and triphasic waveforms noted from the Posterior Tibial . Biphasic with normal velocity, almost no spectral broadening, in the Anterior Tibial and Dorsalis Pedis arteries. Ankle Brachial index not obtained due to bandaging. Interpretation Summary No hemodynamically significant lesions in the right lower extremity only, on duplex imaging, at rest. Mild hemodynamically significant lesions in the left lower extremity only, on duplex imaging, at rest. GLENYS on right is consistent with normal arterial supply. Findings on left are consistent with mild, or no significant compromise. : SAMIR PINTO > Samir Pinto
== END ==
LOC: SP 10:43
PROVIDERS: ATTEND Surgery
DX: L97.322 Non-pressure chronic ulcer of left ankle with fat layer exposed (principal)
CPT/HCPCS: 93922; 93925

== ENCOUNTER → 2018-09-27 | Outpatient (CLI) | payer MEDICARE ==
[2018-09-27 12:47] LABS: ABSOLUTE EOSINOPHILS # (AUTO) 0.1 10^3/uL (0.0-0.6); ABSOLUTE LYMPHOCYTES (AUTO) 0.9 10^3/uL (0.5-4.7); ABSOLUTE MONOCYTES (AUTO) 0.4 10^3/uL (0.1-1.4); ABSOLUTE NEUT (AUTO) 12.5 10^3/uL (1.7-8.2); BASOPHILS % (AUTO) 0.2 % (0-2); EOSINOPHILS % (AUTO) 0.5 % (0-6); HEMATOCRIT 40.1 % (36.0-47.0); HEMOGLOBIN 13.2 g/dL (12.0-15.5); LYMPHOCYTES % (AUTO) 6.6 % (13-45); MEAN CORPUSCULAR HEMOGLOBIN 27.8 pg (27.0-33.4); MEAN CORPUSCULAR VOLUME 84 fl (80-97); MONOCYTES % (AUTO) 3.1 % (3-13); PLATELET COUNT 420 10^3/uL (150-450); RED BLOOD COUNT 4.76 10^6/uL (3.72-5.28); RED CELL DISTRIBUTION WIDTH 13.3 % (11.5-14.0); SEGMENTED NEUTROPHILS % (AUTO) 89.6 % (42-78); TOTAL CELLS COUNTED % (AUTO) 100 %; WHITE BLOOD COUNT 13.9 10^3/uL (4.0-10.5)
--- NOTE | 2018-09-27 12:56 | RADIOLOGY REPORT (SQ) ---
EXAM DESCRIPTION: PELVIS AP COMPLETED DATE/TIME: 09/27/2018 12:45 pm REASON FOR STUDY: PRESSURE ULCER OF LEFT BUTTOCK, STAGE 4 L97.322 NON-PRESSURE CHRONIC ULCER OF LEF T ANKLE W FAT LAYER L89.324 PRESSURE ULCER OF LEFT BUTTOCK, STAGE 4 E11.621 TYPE 2 DIABETES MELLITU S WITH FOOT ULCER COMPARISON: 08/27/2018. NUMBER OF VIEWS: One view TECHNIQUE: AP Pelvis LIMITATIONS: None. FINDINGS: MINERALIZATION: Normal. HIPS: No acute fracture or dislocation. No worrisome bone lesions. PELVIS AND SACRUM: No acute fracture or dislocation. No worrisome bone lesions. PUBIS AND ISCHIUM: No acute fracture. LOWER LUMBAR SPINE: Degenerative changes. SOFT TISSUES: No findings. OTHER: No other significant finding. IMPRESSION: NEGATIVE STUDY OF THE PELVIS. COMMENT: Pelvic fractures are often occult on plain radiographs. If strong clinical suspicion for f racture, recommend CT or MR. TECHNICAL DOCUMENTATION: JOB ID: [id number] [employer]- All Rights Reserved Reading location - IP/workstation name: [email or web address]
--- NOTE | 2018-09-27 12:58 | RADIOLOGY REPORT (SQ) ---
EXAM DESCRIPTION: ANKLE LEFT COMPLETE COMPLETED DATE/TIME: 09/27/2018 12:45 pm REASON FOR STUDY: NON-PRESSURE CHRONIC ULCER OF LEFT ANKLE W FAT LAYER EXPOSED L97.322 NON-PRESSURE CHRONIC ULCER OF LEFT ANKLE W FAT LAYER L89.324 PRESSURE ULCER OF LEFT BUTTOCK, STAGE 4 E11.621 TY PE 2 DIABETES MELLITUS WITH FOOT ULCER COMPARISON: 08/27/2018. NUMBER OF VIEWS: Three views. TECHNIQUE: AP, lateral, and oblique radiographic images acquired of the left ankle. LIMITATIONS: None. FINDINGS: MINERALIZATION: Normal. BONES: No acute fracture or dislocation. There is a small focal area of cortical disruption of the m edial malleolus adjacent to the overlying skin ulcer. JOINTS: No effusions. SOFT TISSUES: No soft tissue swelling. No foreign body. OTHER: No other significant finding. IMPRESSION: SMALL FOCAL AREA OF CORTICAL DISRUPTION OF THE MEDIAL MALLEOLUS, ADJACENT TO THE OVERLYI NG SKIN ULCER, SUSPICIOUS FOR OSTEOMYELITIS. TECHNICAL DOCUMENTATION: JOB ID: [id number] [employer]- All Rights Reserved Reading location - IP/workstation name: [email or web address]
[2018-09-27 13:15] LABS: ALANINE AMINOTRANSFERASE 16 U/L (9-52); ALBUMIN 3.4 g/dL (3.5-5.0); ALKALINE PHOSPHATASE 64 U/L (38-126); ANION GAP 10 (5-19); ASPARTATE AMINO TRANSFERASE 17 U/L (14-36); BILIRUBIN,DIRECT 0.3 mg/dL (0.0-0.4); BILIRUBIN,TOTAL 0.6 mg/dL (0.2-1.3); BLOOD UREA NITROGEN 50 mg/dL (7-20); C-REACTIVE PROTEIN 46.4 mg/L (<10.0); CALCIUM 9.7 mg/dL (8.4-10.2); CARBON DIOXIDE 27 mmol/L (22-30); CHLORIDE 101 mmol/L (98-107); GLUCOSE 112 mg/dL (75-110); SODIUM 137.9 mmol/L (137-145); TOTAL PROTEIN 6.1 g/dL (6.3-8.2)
[2018-09-27 13:53] LABS: ERYTHROCYTE SEDIMENTATION RATE 47 mm/hr (0-30)
== END ==
LOC: WC 12:03
PROVIDERS: ATTEND Surgery
DX: E11.621 Type 2 diabetes mellitus with foot ulcer (principal); L97.322 Non-pressure chronic ulcer of left ankle with fat layer exposed; L89.324 Pressure ulcer of left buttock, stage 4
CPT/HCPCS: 36415; 72170; 80053; 83036; 85025; 85652; 86140

== ENCOUNTER 2018-10-08 10:32 | Day surgery (SDC) | payer MEDICARE ==
[2018-10-08] MEDS ORDERED: LIDOCAINE 0.5% INJ-PF (5 MG/ML) 50 ML SDV ONE (12:40)
[2018-10-08] MEDS ORDERED: SILVER SULFADIAZINE 1% CREAM 25 GM ONE (12:40)
[2018-10-08] MEDS ORDERED: BUPIVACAINE HCL 0.25 % INJ/PF (2.5 MG/1 ML) 30 ML VIAL ONE (12:40)
[2018-10-08] MEDS ORDERED: BACITRACIN INJ 50,000 UNIT VIAL ONE (12:40)
[2018-10-08] MEDS ORDERED: COLLAGENASE CLOSTRIDIUM HIST. OINT 30 GM ONE (12:40)
[2018-10-08] MEDS ORDERED: FENTANYL CITRATE INJ/PF 100 MCG/2 ML AMPUL ONE (13:34)
[2018-10-08] MEDS ORDERED: MIDAZOLAM 2 MG/2 ML INJ ONE (13:34)
[2018-10-08] MEDS ORDERED: PROPOFOL INJ 200 MG/20 ML VIAL IV ONE (13:35)
--- NOTE | 2018-10-08 14:32 | PDOC H&P ---
General Chief Complaint: This patient with a chronic ulcer of the left ankle and of the left ischium is indicated for debridement and bone biopsy. - Diagnosis (1) Paraplegia Is this a Current Diagnosis?: Yes (2) Diabetes mellitus type 2 in nonobese Is this a Current Diagnosis?: Yes (3) Pressure ulcer, stage IV Is this a Current Diagnosis?: Yes (4) TIA (transient ischemic attack) Is this a Current Diagnosis?: Yes (5) Hyperlipidemia Is this a Current Diagnosis?: Yes - Current Medications/Allergies Home Medications: Baclofen [Baclofen 10 mg Tablet] 10 mg PO TID 09/28/14 Lisinopril 10 mg PO QHS 09/28/14 Naproxen Sodium 550 mg PO BID PRN 09/28/14 Oxybutynin Chloride 5 mg PO TID 09/28/14 Prednisone 10 mg PO DAILY 09/28/14 Levothyroxine Sodium [Synthroid 0.088 mg Tablet] 88 mcg PO DAILY 02/08/18 Aspirin [Aspirin 81 mg Chewable Tablet] 81 mg PO DAILY 06/27/18 Atenolol [Tenormin] 12.5 mg PO QHS 06/27/18 Calcium Carbonate [Calcium] 600 mg PO BID 06/27/18 Multivitamin [Multivitamins] 1 each PO DAILY 08/21/18 Allergies/Adverse Reactions: sulfamethoxazole [From Bactrim] Adverse Reaction (Intermediate, Verified 10/07/18 15:43) VOMITING trimethoprim [From Bactrim] Adverse Reaction (Intermediate, Verified 10/07/18 15:43) VOMITING nitrofurantoin [From Macrobid] Adverse Reaction (Verified 10/07/18 15:43) Past Medical History Cardiac Medical History: Denies: Coronary Artery Disease, Myocardial Infarction Pulmonary Medical History: Denies: Asthma, Bronchitis, Chronic Obstructive Pulmonary Disease (COPD), Pneumonia, Tuberculosis Neurological Medical History: Denies: Seizures Endocrine Medical History: Reports: Diabetes Mellitus Type 2, Hypothyroidism Denies: Diabetes Mellitus Type 1 - borderline Musculoskeltal Medical History: Reports: Arthritis Psychiatric Medical History: Reports: Depression - seasonal Hematology: Reports: Anemia Past Surgical History Past Surgical History: Reports: Hysterectomy, Orthopedic Surgery - ankles bilat, spinal cord, Tubal Ligation Denies: Pacemaker Family History Family History: Reviewed & Not Pertinent Parental Family History Reviewed: No Children Family History Reviewed: No Sibling(s) Family History Reviewed.: No Social History Smoking Status: Never Smoker Frequency of Alcohol Use: None Hx Recreational Drug Use: No Hx Prescription Drug Abuse: No Physical Exam Vital Signs: Temp Pulse Resp BP Pulse Ox 97.9 F 71 16 151/87 H 96 10/08/18 11:09 10/08/18 11:09 10/08/18 11:09 10/08/18 11:09 10/08/18 11:09 Intake & Output 10/07/18 10/08/18 10/09/18 06:59 06:59 06:59 Intake Total 0 Balance 0 Weight 75.75 kg 75.75 kg Additional comments: Constitutional: Well-developed well-nourished lady. No apparent acute distress. Eyes: Mucous membranes pink and moist, pupils equal and reactive to light. Conjunctiva normal. Cornea normal. ENT: Hearing grossly normal. External pinna normal to inspection. Teeth intact. Tongue normal to inspection. Cardiac: Heart sounds normal. Respiratory: Normal respiratory effort. Skin: Stage IV pressure ulcer left sacrum approximately 8 cm across by 8 cm x 6 cm deep Abdomen: Soft, non tender. Psychiatric: Judgment, memory, insight seem normal. Mood is pleasant and appropriate. Extremities: Upper extremities show normal range of movement. Pulses present noted to the radial arteries. Capillary refill normal. No cyanosis noted. No muscle wasting noted. Lower extremities show paraplegia, left medial ankle ulcer about 2 x 2 cm. Extending to the malleolus. Impression/Plan Plan: The patient is indicated for debridement of her left ischial ulcer and a biopsy of her left malleolus. The procedures, its risks, benefits, expected outcomes alternatives are familiar to the patient. She wishes to proceed.
[2018-10-08] MEDS ORDERED: MEPERIDINE HCL/PF INJ 25 MG/1 ML DISP.SYRIN IV PRN (15:05)
[2018-10-08] MEDS ORDERED: DIPHENHYDRAMINE HCL 50 MG/ML VIAL IV PRN (15:05)
[2018-10-08] MEDS ORDERED: FENTANYL CITRATE INJ/PF 100 MCG/2 ML AMPUL IV PRN ×2 (15:05)
[2018-10-08] MEDS ORDERED: PROMETHAZINE HCL INJ 25 MG/1 ML VIAL IV PRN (15:05)
[2018-10-08] MEDS ORDERED: CEFAZOLIN INJ 1 GM VIAL ONE (15:10)
--- NOTE | 2018-10-08 15:46 | Discharge Summary ---
Discharge Summary (SDC) - Discharge Final Diagnosis: #1 stage IV pressure ulcers of left ischium and left medial malleolus. 2. Paraplegia. 3. Diabetes mellitus type 2. 4. Hyperlipidemia. Date of Surgery: 10/08/18 Discharge Date: 10/08/18 Condition: Fair Treatment or Instructions: Discharge home [after recovery per ASU criteria]. Diet , diabetic,as tolerated, when fully awake advance as tolerated. Activities within moderation encouraged. Follow up in wound clinic by appointment on Sunday of this week]. Call for appointment. Leave wounds [covered], [keep clean and dry, until office visit in 1 week]. Hold of on school/work [until evaluation in office]. Meds per med rec. May shower [in 48 hrs], [try to keep operated area as dry as possible]. Referrals: SHANIA RICHEY MD [Primary Care Provider] - Discharge Diet: Other (Comments) - Diabetic. Respiratory Treatments at Home: Deep Breathing/Coughing Discharge Activity: Activity As Tolerated Report the Following to Your Physician Immediately: Shortness of Breath, Unusual Bleeding
--- NOTE | 2018-10-08 15:53 | Operative Report ---
Operative Report DATE OF SURGERY: 10/08/18 PREOPERATIVE DIAGNOSIS: #1 stage IV pressure ulcers of left ischium and left me dial malleolus. 2. Paraplegia. 3. Diabetes mellitus type 2. 4. Hyperlipidemia. POSTOPERATIVE DIAGNOSIS: #1 stage IV pressure ulcers of left ischium and left medial malleolus. 2. Paraplegia. 3. Diabetes mellitus type 2. 4. Hyperlipidemia. OPERATION: 1. Bone biopsy of left medial malleolus. 2. Bone biopsy of left ischium. 3. Surgical, sharp, excisional debridement of left ischial pressure ulcer and left medial malleolus pressure ulcer. SURGEON: SAMIR HARMON CONCRETE TECHNICIAN: None. ANESTHESIA: LMAC TISSUE REMOVED OR ALTERED: Bone biopsies from the left medial malleolus and from the left ischium. 2. Exuberant, necrotic granulation tissue and nonhealing scar tissue of the left ischial pressure ulcer. COMPLICATIONS: None. ESTIMATED BLOOD LOSS: 10 mL. INTRAOPERATIVE FINDINGS: Of an approximately 1.5 x 1.5 left medial malleolus ulcer with soft bone presenting in his depth. Of an approximately 8 x 8 x 8 cm deep pressure ulcer of the left ischium with exuberant, nonviable granulation tissue and scarring and fibrosis. Of soft ischial bone. PROCEDURE: PROCEDURE: The left ankle area and left ischial area were prepared with [Betadine] and draped out with sterile linen. After the"universal time-out", in which it was confirmed that the patient [did receive antibiotic], the procedure commenced. The patient was appropriately anesthetized. Starting at the ankle the presenting bone was biopsied using small rongeurs. A small portion of the bony tissue was sent for culture. Surgicel applied. The left ischial wound was debrided of non viable tissue using[cautery with removal of loose debris, as well. Once the necrotic granulation tissue been excised a Jamshidi needle was used to core of portions of the ischial bone. Bleeding from the bone was controlled with bone wax. For added security a portion of Surgicel was placed on the bone and over sutured with 3-0 PDS. The wound was irrigated.. The wound was now irrigated with saline and [Surgicel] placed within it, dressed with [Kerlix] and the procedure concluded.
[2018-10-08 17:42] VITALS: BP 112/80
== END 2018-10-08 15:40 | disposition home or self-care (01) ==
LOC: OROUT 10:32
PROVIDERS: ATTEND Surgery
DX: L89.324 Pressure ulcer of left buttock, stage 4 (principal); L89.524 Pressure ulcer of left ankle, stage 4; G82.20 Paraplegia, unspecified; E78.5 Hyperlipidemia, unspecified; E11.9 Type 2 diabetes mellitus without complications; E03.9 Hypothyroidism, unspecified; D64.9 Anemia, unspecified; Z86.73 Personal history of transient ischemic attack (TIA), and cerebral infarction without residual deficits; Z79.899 Other long term (current) drug therapy; Z79.82 Long term (current) use of aspirin; Z88.2 Allergy status to sulfonamides; Z01.818 Encounter for other preprocedural examination
CPT/HCPCS: 87070; 87205; 82962; 87075; 11044; 11047; J2250; J3490 ×2; J0690; J3010; J2704; 1120

== ENCOUNTER → 2018-11-11 | Outpatient (CLI) | payer MEDICARE, OTHER ==
--- NOTE | 2018-11-11 13:40 | RADIOLOGY REPORT (SQ) ---
EXAM DESCRIPTION: PELVIS AP COMPLETED DATE/TIME: 11/11/2018 1:23 pm REASON FOR STUDY: PRESSURE ULCER OF LEFT BUTTOCK, STAGE 4 L97.324 NON-PRESSURE CHRONIC ULCER OF LEF T ANKLE W NECROSIS E11.621 TYPE 2 DIABETES MELLITUS WITH FOOT ULCER L89.324 PRESSURE ULCER OF LEFT BUTTOCK, STAGE 4 COMPARISON: 09/27/2018 and 07/19/2018 NUMBER OF VIEWS: One view TECHNIQUE: AP Pelvis LIMITATIONS: None. FINDINGS: MINERALIZATION: Osteopenia. HIPS: Mild sclerotic changes in the left ischium with a few very small associated lucent areas, stab le finding since the previous examination dated 09/27/2018, however, new finding since the prior study dated 07/19/2018. Slight cortical irregularity and indistinct margin along the cortex of the inferio r ischiumy. No acute fracture. Bone island at the junction right greater trochanter and the left femoral head-neck, stable findings. PELVIS AND SACRUM: No acute fracture or dislocation. No worrisome bone lesions. PUBIS AND ISCHIUM: No acute fracture. LOWER LUMBAR SPINE: Degenerative changes mid-lower lumbar spine. SOFT TISSUES: No findings. OTHER: No other significant finding. IMPRESSION: 1. Mild sclerotic changes in the left ischium, stable since the previous examination awais ed 09/27/2018, however, new since the examination dated 07/19/2018. The inferior margin of the ischium is slightly irregular and indistinct which also represents a new finding since the examination dated 07/19/2018. Considerations for these findings include osteomyelitis. 2. No acute fracture. COMMENT: Pelvic fractures are often occult on plain radiographs. If strong clinical suspicion for f racture, recommend CT or MR. TECHNICAL DOCUMENTATION: JOB ID: [id number]- All Rights Reserved Reading location - IP/workstation name: [email or web address]
[2018-11-11 13:48] LABS: ABSOLUTE EOSINOPHILS # (AUTO) 0.1 10^3/uL (0.0-0.6); ABSOLUTE LYMPHOCYTES (AUTO) 0.9 10^3/uL (0.5-4.7); ABSOLUTE MONOCYTES (AUTO) 0.4 10^3/uL (0.1-1.4); ABSOLUTE NEUT (AUTO) 9.7 10^3/uL (1.7-8.2); BASOPHILS % (AUTO) 0.3 % (0-2); EOSINOPHILS % (AUTO) 0.6 % (0-6); HEMATOCRIT 37.7 % (36.0-47.0); HEMOGLOBIN 12.4 g/dL (12.0-15.5); LYMPHOCYTES % (AUTO) 7.9 % (13-45); MEAN CORPUSCULAR HEMOGLOBIN 27.6 pg (27.0-33.4); MEAN CORPUSCULAR HGB CONC 32.8 g/dL (32.0-36.0); MEAN CORPUSCULAR VOLUME 84 fl (80-97); MONOCYTES % (AUTO) 3.5 % (3-13); PLATELET COUNT 336 10^3/uL (150-450); RED BLOOD COUNT 4.48 10^6/uL (3.72-5.28); SEGMENTED NEUTROPHILS % (AUTO) 87.7 % (42-78); TOTAL CELLS COUNTED % (AUTO) 100 %; WHITE BLOOD COUNT 11.1 10^3/uL (4.0-10.5)
[2018-11-11 14:09] LABS: ALANINE AMINOTRANSFERASE 15 U/L (9-52); ALBUMIN 3.3 g/dL (3.5-5.0); ALKALINE PHOSPHATASE 59 U/L (38-126); ANION GAP 8 (5-19); ASPARTATE AMINO TRANSFERASE 14 U/L (14-36); BILIRUBIN,DIRECT 0.2 mg/dL (0.0-0.4); BILIRUBIN,TOTAL 0.2 mg/dL (0.2-1.3); BLOOD UREA NITROGEN 63 mg/dL (7-20); C-REACTIVE PROTEIN 21.4 mg/L (<10.0); CALCIUM 9.4 mg/dL (8.4-10.2); CARBON DIOXIDE 27 mmol/L (22-30); CHLORIDE 103 mmol/L (98-107); GLUCOSE 122 mg/dL (75-110); POTASSIUM 4.9 mmol/L (3.6-5.0); SODIUM 138.3 mmol/L (137-145); TOTAL PROTEIN 5.7 g/dL (6.3-8.2)
[2018-11-11 14:29] LABS: ERYTHROCYTE SEDIMENTATION RATE 33 mm/hr (0-30)
--- NOTE | 2018-11-11 16:03 | RADIOLOGY REPORT (SQ) ---
EXAM DESCRIPTION: FOOT LEFT COMPLETE COMPLETED DATE/TIME: 11/11/2018 1:23 pm REASON FOR STUDY: NON-PRESSURE CHRONIC ULCER OF LEFT ANKLE W NECROSIS OF BONE L97.324 NON-PRESSURE CHRONIC ULCER OF LEFT ANKLE W NECROSIS E11.621 TYPE 2 DIABETES MELLITUS WITH FOOT ULCER L89.324 CA ESSURE ULCER OF LEFT BUTTOCK, STAGE 4 COMPARISON: 08/27/2018. NUMBER OF VIEWS: Three views. TECHNIQUE: AP, lateral and oblique without weight bearing radiographic images acquired of the left f oot. LIMITATIONS: None. FINDINGS: MINERALIZATION: Diffuse patchy demineralization. BONES: No acute fracture or dislocation. No worrisome bone lesions. No significant osteophytes. JOINTS: No erosions. No hector-articular osteopenia. No chondrocalcinosis. SOFT TISSUES: No swelling. No calcifications. OTHER: No other significant finding. IMPRESSION: DIFFUSE PATCHY DEMINERALIZATION. NO OTHER SIGNIFICANT FINDINGS. TECHNICAL DOCUMENTATION: JOB ID: [id number] [employer]- All Rights Reserved Reading location - IP/workstation name: [email or web address]
== END ==
LOC: WC 12:36
PROVIDERS: ATTEND Surgery
DX: E11.621 Type 2 diabetes mellitus with foot ulcer (principal); L97.324 Non-pressure chronic ulcer of left ankle with necrosis of bone; E11.622 Type 2 diabetes mellitus with other skin ulcer; L89.324 Pressure ulcer of left buttock, stage 4
CPT/HCPCS: 36415; 72170; 80053; 83036; 85025; 85652; 86140

== ENCOUNTER → 2018-12-10 | Outpatient (CLI) | payer MEDICARE, OTHER ==
[2018-12-10 15:33] LABS: ABSOLUTE BASOPHILS # (AUTO) 0.1 10^3/uL (0.0-0.2); ABSOLUTE EOSINOPHILS # (AUTO) 0.2 10^3/uL (0.0-0.6); ABSOLUTE LYMPHOCYTES (AUTO) 1.3 10^3/uL (0.5-4.7); ABSOLUTE MONOCYTES (AUTO) 0.9 10^3/uL (0.1-1.4); ABSOLUTE NEUT (AUTO) 15.9 10^3/uL (1.7-8.2); BASOPHILS % (AUTO) 0.4 % (0-2); EOSINOPHILS % (AUTO) 1.1 % (0-6); LYMPHOCYTES % (AUTO) 7.3 % (13-45); MEAN CORPUSCULAR HEMOGLOBIN 26.8 pg (27.0-33.4); MEAN CORPUSCULAR HGB CONC 32.5 g/dL (32.0-36.0); MEAN CORPUSCULAR VOLUME 83 fl (80-97); MONOCYTES % (AUTO) 4.8 % (3-13); PLATELET COUNT 378 10^3/uL (150-450); RED BLOOD COUNT 5.22 10^6/uL (3.72-5.28); RED CELL DISTRIBUTION WIDTH 14.2 % (11.5-14.0); SEGMENTED NEUTROPHILS % (AUTO) 86.4 % (42-78); TOTAL CELLS COUNTED % (AUTO) 100 %; WHITE BLOOD COUNT 18.4 10^3/uL (4.0-10.5)
[2018-12-10 16:07] LABS: ALANINE AMINOTRANSFERASE 17 U/L (9-52); ALBUMIN 3.9 g/dL (3.5-5.0); ALKALINE PHOSPHATASE 69 U/L (38-126); ANION GAP 9 (5-19); ASPARTATE AMINO TRANSFERASE 20 U/L (14-36); BILIRUBIN,DIRECT 0.2 mg/dL (0.0-0.4); BILIRUBIN,TOTAL 0.3 mg/dL (0.2-1.3); BLOOD UREA NITROGEN 48 mg/dL (7-20); C-REACTIVE PROTEIN 18.5 mg/L (<10.0); CALCIUM 9.7 mg/dL (8.4-10.2); CARBON DIOXIDE 27 mmol/L (22-30); CHLORIDE 101 mmol/L (98-107); GLUCOSE 92 mg/dL (75-110); POTASSIUM 5.2 mmol/L (3.6-5.0); SODIUM 136.5 mmol/L (137-145); TOTAL PROTEIN 6.4 g/dL (6.3-8.2)
[2018-12-10 16:15] LABS: ERYTHROCYTE SEDIMENTATION RATE 25 mm/hr (0-30)
--- NOTE | 2018-12-10 16:59 | RADIOLOGY REPORT (SQ) ---
EXAM DESCRIPTION: FOOT LEFT COMPLETE COMPLETED DATE/TIME: 12/10/2018 2:49 pm REASON FOR STUDY: NON-PRESSURE CHRONIC ULCER OF LEFT ANKLE W NECROSIS OF BONE L97.324 NON-PRESSURE CHRONIC ULCER OF LEFT ANKLE W NECROSIS E11.621 TYPE 2 DIABETES MELLITUS WITH FOOT ULCER COMPARISON: Left foot films 11/11/2018, 08/27/2018 Left ankle films for comparison same date NUMBER OF VIEWS: Three views. TECHNIQUE: AP, lateral and oblique radiographic images acquired of the left foot. LIMITATIONS: None. FINDINGS: MINERALIZATION: Diffuse osteopenia, likely from disuse BONES: No acute fracture or dislocation. No worrisome bone lesions. JOINTS: No effusions. SOFT TISSUES: Mild dorsal forefoot soft tissue swelling. No foreign body. OTHER: No other significant finding. IMPRESSION: Forefoot soft tissue swelling. No radiopaque foreign body or soft tissue gas. No aggre ssive bony focal demineralization worrisome for osteomyelitis TECHNICAL DOCUMENTATION: JOB ID: [id number] [employer]- All Rights Reserved Reading location - IP/workstation name: [email or web address]
--- NOTE | 2018-12-10 17:01 | RADIOLOGY REPORT (SQ) ---
EXAM DESCRIPTION: ANKLE LEFT COMPLETE COMPLETED DATE/TIME: 12/10/2018 2:49 pm REASON FOR STUDY: NON-PRESSURE CHRONIC ULCER OF LEFT ANKLE W NECROSIS OF BONE L97.324 NON-PRESSURE CHRONIC ULCER OF LEFT ANKLE W NECROSIS E11.621 TYPE 2 DIABETES MELLITUS WITH FOOT ULCER COMPARISON: Left foot films same date new Left ankle films on 09/27/2018, 08/27/2018 NUMBER OF VIEWS: Three views. TECHNIQUE: AP, lateral, and oblique radiographic images acquired of the left ankle. LIMITATIONS: None. FINDINGS: MINERALIZATION: Normal. BONES: Minimal sclerosis along the medial edge medial malleolus likely from healed osteomyelitis. JOINTS: No effusions. SOFT TISSUES: No soft tissue swelling. No foreign body. OTHER: No other significant finding. IMPRESSION: Minimal sclerosis along the medial edge, medial malleolus likely from healed osteomyelit is TECHNICAL DOCUMENTATION: JOB ID: [id number] [employer]- All Rights Reserved Reading location - IP/workstation name: [email or web address]
== END ==
LOC: WC 14:06
PROVIDERS: ATTEND Surgery
DX: L97.324 Non-pressure chronic ulcer of left ankle with necrosis of bone (principal); E11.621 Type 2 diabetes mellitus with foot ulcer
CPT/HCPCS: 36415; 80053; 83036; 85025; 85652; 86140

== ENCOUNTER → 2018-12-13 | Outpatient (CLI) | payer MEDICARE, OTHER ==
--- NOTE | 2018-12-13 13:35 | RADIOLOGY REPORT (SQ) ---
EXAM DESCRIPTION: PELVIS AP COMPLETED DATE/TIME: 12/13/2018 11:16 am REASON FOR STUDY: PRESSURE ULCER OF LEFT BUTTOCK, STAGE 1 L89.321 PRESSURE ULCER OF LEFT BUTTOCK, S TAGE 1 COMPARISON: 11/11/2018 NUMBER OF VIEWS: One view TECHNIQUE: AP Pelvis LIMITATIONS: None. FINDINGS: Bones are osteopenic. No evidence of advanced tip arthropathy or AVN. Demineralization a long the lateral margin of the left inferior pubic ramus not significantly changed. No active perios teal reaction. IMPRESSION: Demineralization left inferior pubic ramus not significantly changed. Cannot exclude os teomyelitis. COMMENT: Pelvic fractures are often occult on plain radiographs. If strong clinical suspicion for f racture, recommend CT or MR. TECHNICAL DOCUMENTATION: JOB ID: [id number] [email or web address]- All Rights Reserved Reading location - IP/workstation name: [email or web address]
== END ==
LOC: WC 10:32
PROVIDERS: ATTEND Nurse Practitioner Family
DX: L89.321 Pressure ulcer of left buttock, stage 1 (principal)
CPT/HCPCS: 72170

== ENCOUNTER → 2018-12-19 | Outpatient (CLI) | payer MEDICARE, OTHER ==
[2018-12-19 12:00] LABS: ANION GAP 8 (5-19); BLOOD UREA NITROGEN 33 mg/dL (7-20); CALCIUM 9.5 mg/dL (8.4-10.2); CARBON DIOXIDE 30 mmol/L (22-30); CHLORIDE 100 mmol/L (98-107); GLUCOSE 83 mg/dL (75-110); POTASSIUM 4.4 mmol/L (3.6-5.0); SODIUM 137.5 mmol/L (137-145); TRIGLYCERIDES 87 mg/dL (<150)
[2018-12-19 12:11] LABS: DIRECT LDL 86 mg/dL (<100)
[2018-12-20 12:36] LABS: CREATININE URINE 47.6 mg/dL (Not Estab.)
== END ==
LOC: OD 10:36
PROVIDERS: ATTEND Family Medicine
DX: E11.9 Type 2 diabetes mellitus without complications (principal); E03.9 Hypothyroidism, unspecified; E78.5 Hyperlipidemia, unspecified; Z79.899 Other long term (current) drug therapy
CPT/HCPCS: 36415; 80048; 80061; 82043; 82570; 83036; 84443

== ENCOUNTER → 2019-01-07 | Outpatient (CLI) | payer MEDICARE, OTHER ==
[2019-01-07 12:25] LABS: ABSOLUTE EOSINOPHILS # (AUTO) 0.1 10^3/uL (0.0-0.6); ABSOLUTE LYMPHOCYTES (AUTO) 1.1 10^3/uL (0.5-4.7); ABSOLUTE MONOCYTES (AUTO) 0.8 10^3/uL (0.1-1.4); ABSOLUTE NEUT (AUTO) 14.3 10^3/uL (1.7-8.2); BASOPHILS % (AUTO) 0.2 % (0-2); EOSINOPHILS % (AUTO) 0.5 % (0-6); HEMOGLOBIN 13.7 g/dL (12.0-15.5); LYMPHOCYTES % (AUTO) 6.6 % (13-45); MEAN CORPUSCULAR HEMOGLOBIN 26.9 pg (27.0-33.4); MEAN CORPUSCULAR HGB CONC 33.4 g/dL (32.0-36.0); MEAN CORPUSCULAR VOLUME 80 fl (80-97); MONOCYTES % (AUTO) 4.7 % (3-13); PLATELET COUNT 372 10^3/uL (150-450); RED CELL DISTRIBUTION WIDTH 14.1 % (11.5-14.0); TOTAL CELLS COUNTED % (AUTO) 100 %; WHITE BLOOD COUNT 16.3 10^3/uL (4.0-10.5)
--- NOTE | 2019-01-07 12:27 | RADIOLOGY REPORT (SQ) ---
EXAM DESCRIPTION: PELVIS AP COMPLETED DATE/TIME: 01/07/2019 12:12 pm REASON FOR STUDY: PRESSURE ULCER OF LEFT BUTTOCK, STAGE 4 L89.324 PRESSURE ULCER OF LEFT BUTTOCK, S TAGE 4 L97.324 NON-PRESSURE CHRONIC ULCER OF LEFT ANKLE W NECROSIS COMPARISON: AP pelvis 08/27/2018, 09/27/2018, 11/11/2018, 12/13/2018 NUMBER OF VIEWS: One view TECHNIQUE: AP Pelvis LIMITATIONS: None. FINDINGS: MINERALIZATION: Osteoporotic, stable HIPS: No acute fracture or dislocation. No worrisome bone lesions. PELVIS AND SACRUM: No acute fracture or dislocation. No worrisome bone lesions. PUBIS AND ISCHIUM: No acute fracture. LOWER LUMBAR SPINE: No significant findings as visualized. SOFT TISSUES: A wound VAC is present over the left gluteal region OTHER: Chance catheter in the bladder. IMPRESSION: Wound VAC over the left gluteal region. No acute bony changes. TECHNICAL DOCUMENTATION: JOB ID: [id number] [employer]- All Rights Reserved Reading location - IP/workstation name: [email or web address]
[2019-01-07 12:52] LABS: ALBUMIN 3.7 g/dL (3.5-5.0); ALKALINE PHOSPHATASE 79 U/L (38-126); ANION GAP 12 (5-19); ASPARTATE AMINO TRANSFERASE 20 U/L (14-36); BILIRUBIN,DIRECT 0.1 mg/dL (0.0-0.4); BILIRUBIN,TOTAL 0.3 mg/dL (0.2-1.3); BLOOD UREA NITROGEN 42 mg/dL (7-20); C-REACTIVE PROTEIN 35.3 mg/L (<10.0); CALCIUM 9.5 mg/dL (8.4-10.2); CARBON DIOXIDE 26 mmol/L (22-30); CHLORIDE 98 mmol/L (98-107); GLUCOSE 95 mg/dL (75-110); POTASSIUM 4.5 mmol/L (3.6-5.0); TOTAL PROTEIN 6.1 g/dL (6.3-8.2)
[2019-01-07 13:06] LABS: ERYTHROCYTE SEDIMENTATION RATE 38 mm/hr (0-30)
== END ==
LOC: WC 11:44
PROVIDERS: ATTEND Nurse Practitioner Family
DX: L89.324 Pressure ulcer of left buttock, stage 4 (principal); L97.324 Non-pressure chronic ulcer of left ankle with necrosis of bone
CPT/HCPCS: 36415; 72170; 80053; 85025; 85652; 86140

== ENCOUNTER → 2019-02-24 | Outpatient (CLI) | payer MEDICARE, OTHER ==
[2019-02-24 16:01] LABS: ABSOLUTE BASOPHILS # (AUTO) 0.1 10^3/uL (0.0-0.2); ABSOLUTE EOSINOPHILS # (AUTO) 0.2 10^3/uL (0.0-0.6); ABSOLUTE LYMPHOCYTES (AUTO) 0.9 10^3/uL (0.5-4.7); ABSOLUTE MONOCYTES (AUTO) 0.5 10^3/uL (0.1-1.4); ABSOLUTE NEUT (AUTO) 10.4 10^3/uL (1.7-8.2); BASOPHILS % (AUTO) 0.5 % (0-2); EOSINOPHILS % (AUTO) 1.7 % (0-6); HEMATOCRIT 39.5 % (36.0-47.0); HEMOGLOBIN 13.1 g/dL (12.0-15.5); LYMPHOCYTES % (AUTO) 7.1 % (13-45); MEAN CORPUSCULAR HEMOGLOBIN 26.5 pg (27.0-33.4); MEAN CORPUSCULAR HGB CONC 33.2 g/dL (32.0-36.0); MEAN CORPUSCULAR VOLUME 80 fl (80-97); MONOCYTES % (AUTO) 4.5 % (3-13); PLATELET COUNT 356 10^3/uL (150-450); RED BLOOD COUNT 4.94 10^6/uL (3.72-5.28); RED CELL DISTRIBUTION WIDTH 14.7 % (11.5-14.0); SEGMENTED NEUTROPHILS % (AUTO) 86.2 % (42-78); TOTAL CELLS COUNTED % (AUTO) 100 %; WHITE BLOOD COUNT 12.1 10^3/uL (4.0-10.5)
[2019-02-24 16:15] LABS: ALBUMIN 3.4 g/dL (3.5-5.0); ALKALINE PHOSPHATASE 75 U/L (38-126); ANION GAP 9 (5-19); ASPARTATE AMINO TRANSFERASE 15 U/L (14-36); BILIRUBIN,DIRECT 0.2 mg/dL (0.0-0.4); BILIRUBIN,TOTAL 0.3 mg/dL (0.2-1.3); BLOOD UREA NITROGEN 62 mg/dL (7-20); C-REACTIVE PROTEIN 37.7 mg/L (<10.0); CALCIUM 9.3 mg/dL (8.4-10.2); CARBON DIOXIDE 23 mmol/L (22-30); CHLORIDE 103 mmol/L (98-107); GLUCOSE 102 mg/dL (75-110); POTASSIUM 4.3 mmol/L (3.6-5.0)
--- NOTE | 2019-02-24 17:01 | RADIOLOGY REPORT (SQ) ---
EXAM DESCRIPTION: PELVIS AP COMPLETED DATE/TIME: 02/24/2019 3:03 pm REASON FOR STUDY: PRESSURE ULCER OF LEFT BUTTOCK, STAGE 4 L89.324 PRESSURE ULCER OF LEFT BUTTOCK, S TAGE 4 COMPARISON: AP view of the pelvis from 01/07/2019. NUMBER OF VIEWS: One view TECHNIQUE: AP Pelvis LIMITATIONS: None. FINDINGS: MINERALIZATION: Osteopenia. HIPS: No acute fracture or dislocation. No osseous erosion. PELVIS AND SACRUM: The sacrum is obscured due to overlying bowel. PUBIS AND ISCHIUM: The ilioischial and iliopectineal lines are intact. There is no diastasis of the pubic symphysis. LOWER LUMBAR SPINE: Findings of degenerative spondylosis at L4-5 and L5-S1. SOFT TISSUES: No findings. OTHER: Do wound bag over the left gluteal region is no longer in place. IMPRESSION: No acute osseous abnormality of the pelvis. COMMENT: Pelvic fractures are often occult on plain radiographs. If strong clinical suspicion for f racture, recommend CT or MR. TECHNICAL DOCUMENTATION: JOB ID: [id number]- All Rights Reserved Reading location - IP/workstation name: [email or web address]
[2019-02-24 17:02] LABS: ERYTHROCYTE SEDIMENTATION RATE 41 mm/hr (0-30)
== END ==
LOC: WC 14:38
PROVIDERS: ATTEND Surgery
DX: L89.324 Pressure ulcer of left buttock, stage 4 (principal)
CPT/HCPCS: 36415; 72170; 80053; 85025; 85652; 86140

== ENCOUNTER → 2019-04-09 | Outpatient (CLI) | payer MEDICARE, OTHER ==
[2019-04-09 12:26] LABS: ABSOLUTE EOSINOPHILS # (AUTO) 0.1 10^3/uL (0.0-0.6); ABSOLUTE LYMPHOCYTES (AUTO) 0.8 10^3/uL (0.5-4.7); ABSOLUTE MONOCYTES (AUTO) 0.7 10^3/uL (0.1-1.4); ABSOLUTE NEUT (AUTO) 11.6 10^3/uL (1.7-8.2); BASOPHILS % (AUTO) 0.3 % (0-2); EOSINOPHILS % (AUTO) 0.5 % (0-6); HEMATOCRIT 40.3 % (36.0-47.0); HEMOGLOBIN 13.3 g/dL (12.0-15.5); LYMPHOCYTES % (AUTO) 6.3 % (13-45); MEAN CORPUSCULAR HEMOGLOBIN 26.6 pg (27.0-33.4); MEAN CORPUSCULAR VOLUME 81 fl (80-97); MONOCYTES % (AUTO) 5.3 % (3-13); PLATELET COUNT 325 10^3/uL (150-450); RED CELL DISTRIBUTION WIDTH 14.9 % (11.5-14.0); SEGMENTED NEUTROPHILS % (AUTO) 87.6 % (42-78); TOTAL CELLS COUNTED % (AUTO) 100 %; WHITE BLOOD COUNT 13.2 10^3/uL (4.0-10.5)
--- NOTE | 2019-04-09 12:47 | RADIOLOGY REPORT (SQ) ---
EXAM DESCRIPTION: PELVIS AP COMPLETED DATE/TIME: 04/09/2019 12:15 pm REASON FOR STUDY: PRESSURE ULCER OF LEFT BUTTOCK, STAGE 4 L89.324 PRESSURE ULCER OF LEFT BUTTOCK, S TAGE 4 E11.622 TYPE 2 DIABETES MELLITUS WITH OTHER SKIN ULCER COMPARISON: None. NUMBER OF VIEWS: One view TECHNIQUE: AP Pelvis LIMITATIONS: None. FINDINGS: MINERALIZATION: Osteopenia. HIPS: No acute fracture or dislocation. No worrisome bone lesions. PELVIS AND SACRUM: No acute fracture or dislocation. No worrisome bone lesions. PUBIS AND ISCHIUM: No acute fracture. LOWER LUMBAR SPINE: No significant findings as visualized. SOFT TISSUES: No findings. OTHER: No other significant finding. IMPRESSION: Osteopenia. No displaced fractures. COMMENT: Pelvic fractures are often occult on plain radiographs. If strong clinical suspicion for f racture, recommend CT or MR. TECHNICAL DOCUMENTATION: JOB ID: [id number] [employer]- All Rights Reserved Reading location - IP/workstation name: [email or web address]
[2019-04-09 12:58] LABS: ALBUMIN 3.5 g/dL (3.5-5.0); ALKALINE PHOSPHATASE 71 U/L (38-126); ANION GAP 11 (5-19); ASPARTATE AMINO TRANSFERASE 20 U/L (14-36); BILIRUBIN,DIRECT 0.2 mg/dL (0.0-0.4); BILIRUBIN,TOTAL 0.5 mg/dL (0.2-1.3); BLOOD UREA NITROGEN 24 mg/dL (7-20); C-REACTIVE PROTEIN 45.3 mg/L (<10.0); CALCIUM 9.4 mg/dL (8.4-10.2); CARBON DIOXIDE 25 mmol/L (22-30); CHLORIDE 102 mmol/L (98-107); GLUCOSE 88 mg/dL (75-110); POTASSIUM 4.3 mmol/L (3.6-5.0); TOTAL PROTEIN 6.2 g/dL (6.3-8.2)
[2019-04-09 13:04] LABS: ERYTHROCYTE SEDIMENTATION RATE 35 mm/hr (0-30)
[2019-04-11 14:58] LABS: AMORPHOUS SEDIMENT,URINE TRACE /HPF; APPEARANCE,URINE SLIGHTLY-CLOUDY; BILIRUBIN,URINE NEGATIVE (NEGATIVE); COLOR,URINE YELLOW; GLUCOSE, URINE NEGATIVE (NEGATIVE); KETONES,URINE NEGATIVE (NEGATIVE); LEUKOCYTE ESTERASE,URINE LARGE (NEGATIVE); NITRITE,URINE POSITIVE (NEGATIVE); PROTEIN,URINE NEGATIVE (NEGATIVE); URINE SPECIFIC GRAVITY 1.008; UROBILINOGEN,URINE NEGATIVE mg/dL (<2.0)
== END ==
LOC: WC 11:52
PROVIDERS: ATTEND Surgery
DX: E11.622 Type 2 diabetes mellitus with other skin ulcer (principal); L89.324 Pressure ulcer of left buttock, stage 4
CPT/HCPCS: 36415; 72170; 80053; 81001; 85025; 85652; 86140

== ENCOUNTER → 2019-04-22 | Outpatient (CLI) | payer MEDICARE, OTHER ==
--- NOTE | 2019-04-22 12:46 | RADIOLOGY REPORT (SQ) ---
EXAM DESCRIPTION: CHEST PA/LATERAL COMPLETED DATE/TIME: 04/22/2019 12:10 pm REASON FOR STUDY: COUGH COMPARISON: 08/21/2018 EXAM PARAMETERS: NUMBER OF VIEWS: two views TECHNIQUE: Digital Frontal and Lateral radiographic views of the chest acquired. RADIATION DOSE: NA LIMITATIONS: none FINDINGS: LUNGS AND PLEURA: No opacities, masses or pneumothorax. No pleural effusion. MEDIASTINUM AND HILAR STRUCTURES: Stable widening of the right paratracheal stripe, likely vascular. HEART AND VASCULAR STRUCTURES: Heart normal size. No evidence for failure. BONES: No acute findings. HARDWARE: Partially visualized posterior thoracolumbar hardware. OTHER: No other significant finding. IMPRESSION: No focal consolidation or other evidence of acute cardiopulmonary process. TECHNICAL DOCUMENTATION: JOB ID: [id number] [employer]- All Rights Reserved Reading location - IP/workstation name: [email or web address]
== END ==
LOC: OD 11:51
PROVIDERS: ATTEND Family Medicine
DX: R05 Cough (principal); R06.02 Shortness of breath
CPT/HCPCS: 71046

== ENCOUNTER 2019-04-23 11:49 | Emergency (ER) | payer MEDICARE, OTHER ==
[2019-04-23 12:28] LABS: ABSOLUTE BASOPHILS # (AUTO) 0.1 10^3/uL (0.0-0.2); ABSOLUTE LYMPHOCYTES (AUTO) 0.7 10^3/uL (0.5-4.7); ABSOLUTE MONOCYTES (AUTO) 0.6 10^3/uL (0.1-1.4); ABSOLUTE NEUT (AUTO) 10.9 10^3/uL (1.7-8.2); BASOPHILS % (AUTO) 0.4 % (0-2); EOSINOPHILS % (AUTO) 0.3 % (0-6); HEMATOCRIT 41.2 % (36.0-47.0); HEMOGLOBIN 13.5 g/dL (12.0-15.5); LYMPHOCYTES % (AUTO) 5.7 % (13-45); MEAN CORPUSCULAR HEMOGLOBIN 26.7 pg (27.0-33.4); MEAN CORPUSCULAR HGB CONC 32.7 g/dL (32.0-36.0); MEAN CORPUSCULAR VOLUME 82 fl (80-97); MONOCYTES % (AUTO) 5.3 % (3-13); PLATELET COUNT 312 10^3/uL (150-450); RED BLOOD COUNT 5.04 10^6/uL (3.72-5.28); RED CELL DISTRIBUTION WIDTH 15.4 % (11.5-14.0); SEGMENTED NEUTROPHILS % (AUTO) 88.3 % (42-78); TOTAL CELLS COUNTED % (AUTO) 100 %; VENOUS BLOOD BASE EXCESS -3.9 mmol/L; VENOUS BLOOD HCO3 21.2 mmol/L (20-32); VENOUS BLOOD PCO2 38.4 mmHg (35-63); VENOUS BLOOD PH 7.36 (7.30-7.42); WHITE BLOOD COUNT 12.3 10^3/uL (4.0-10.5)
--- NOTE | 2019-04-23 12:35 | RADIOLOGY REPORT (SQ) ---
EXAM DESCRIPTION: CHEST SINGLE VIEW COMPLETED DATE/TIME: 04/23/2019 12:21 pm REASON FOR STUDY: bed 3 sepsis protocol COMPARISON: AP and lateral views of the chest from 04/22/2019. EXAM PARAMETERS: NUMBER OF VIEWS: One view. TECHNIQUE: Single frontal radiographic view of the chest acquired. RADIATION DOSE: NA LIMITATIONS: None. FINDINGS: LUNGS AND PLEURA: Low inspiratory lung volumes without a superimposed consolidation, pleur al effusion or pneumothorax. MEDIASTINUM AND HILAR STRUCTURES: No mediastinal or hilar contour abnormality. HEART AND VASCULAR STRUCTURES: The cardiac silhouette and pulmonary vasculature are within normal jensen its given the low inspiratory lung volumes. BONES: No acute findings. HARDWARE: Posterior fusion hardware in the thoracolumbar spine. OTHER: No other finding. IMPRESSION: Low inspiratory lung volumes without a superimposed acute cardiopulmonary process. TECHNICAL DOCUMENTATION: JOB ID: [id number] [employer]- All Rights Reserved Reading location - IP/workstation name: [email or web address]
[2019-04-23 12:44] LABS: INTERNATIONAL RATION (INR) 1.24; PROTHROMBIN TIME 15.7 SEC (11.4-15.4)
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
[2019-04-23 13:01] LABS: ALBUMIN 3.3 g/dL (3.5-5.0); ALKALINE PHOSPHATASE 90 U/L (38-126); ANION GAP 11 (5-19); ASPARTATE AMINO TRANSFERASE 22 U/L (14-36); BILIRUBIN,DIRECT 0.2 mg/dL (0.0-0.4); BILIRUBIN,TOTAL 0.7 mg/dL (0.2-1.3); BLOOD UREA NITROGEN 29 mg/dL (7-20); CALCIUM 9.6 mg/dL (8.4-10.2); CARBON DIOXIDE 21 mmol/L (22-30); CHLORIDE 107 mmol/L (98-107); GLUCOSE 144 mg/dL (75-110); POTASSIUM 4.4 mmol/L (3.6-5.0); TOTAL PROTEIN 6.1 g/dL (6.3-8.2)
[2019-04-23] MEDS ORDERED: HEPARIN SODIUM,PORCINE/D5W 25,000 UNIT/250 ML RTUINJ IV PRN (13:21)
[2019-04-23] MEDS ORDERED: HEPARIN SOD (PORCINE) 1,000 UNIT/ML 10 ML VIAL IV ONE (13:21)
[2019-04-23] MEDS ORDERED: HEPARIN SODIUM,PORCINE/D5W 25,000 UNIT/250 ML RTUINJ IV ONE (13:22)
--- NOTE | 2019-04-23 13:32 | RADIOLOGY REPORT (SQ) ---
EXAM DESCRIPTION: CTA CHEST COMPLETED DATE/TIME: 04/23/2019 1:14 pm REASON FOR STUDY: hypoxic, dizzy. new O2 req, COMPARISON: AP view of the chest from 04/23/2019. TECHNIQUE: CT scan of the chest performed using helical scanning technique with dynamic intravenous contrast injection. Images reviewed with lung, soft tissue and bone windows. Reconstructed coronal and sagittal MPR images reviewed. Additional 3 dimensional post-processing performed to develop Maximal Intensity Projection images (PA P). All images stored on PACS. All CT scanners at this facility use dose modulation, iterative reconstruction, and/or weight based d osing when appropriate to reduce radiation dose to as low as reasonably achievable (ALARA). [facility]: Dose Right [facility]: CareDose [facility]: Dose Right [facility]: Teradose 4D [facility]: Daegis CONTRAST TYPE AND DOSE: Contrast/concentration: Isovue 350.00 mg/ml; Total Contrast Delivered: 61.0 ml; Total Saline Delivered: 66.0 ml Contrast bolus optimized for the pulmonary arteries. RENAL FUNCTION: GFR > 60. RADIATION DOSE: CT Rad equipment meets quality standard of care and radiation dose reduction techniq ues were employed. CTDIvol: 13.2 - 18.1 mGy. DLP: 607 mGy-cm. . LIMITATIONS: None. FINDINGS: LUNGS AND PLEURA: The trachea and main bronchi are patent. There are multifocal patchy gr ound-glass opacities in the right upper, left upper, left lower and right lower lobes. There is no p leural effusion, consolidation or pneumothorax. AORTA AND GREAT VESSELS: Evaluation is limited as the contrast bolus was optimized for evaluation of the pulmonary arteries. There is no thoracic aortic aneurysm. HEART: The right atrium is dilated. The intervertebral a septum is flattened. And there is reflux o f the contrast into the inferior vena cava and hepatic veins. There is no pericardial effusion. PULMONARY ARTERIES: There are acute filling defects within the right main artery and segmental branch es of the pulmonary arteries to the right upper, right lower and left lower lobes. HILAR AND MEDIASTINAL STRUCTURES: No mediastinal or hilar adenopathy. HARDWARE: None in the chest. UPPER ABDOMEN: Hiatal hernia. THYROID AND OTHER SOFT TISSUES: No masses or adenopathy. BONES: Posterior fusion hardware in the thoracolumbar spine. 3D MIPS: Confirm above findings. OTHER: No other finding. IMPRESSION: Acute pulmonary emboli with evidence of right heart strain as detailed above. The multi focal patchy ground-glass opacities in the right upper, right lower, left upper and left lower lobes could represent infarcts. Clinical correlation to exclude infectious process is recommended. COMMENT: This report was called to RAJINDER HORNE MD at13:18 on 04/23/2019. Quality ID # [id number]: Final reports with documentation of one or more dose reduction techniques (e.g., Au tomated exposure control, adjustment of the mA and/or kV according to patient size, use of iterative reconstruction technique) TECHNICAL DOCUMENTATION: JOB ID: [id number] [employer]- All Rights Reserved Reading location - IP/workstation name: [email or web address]-
--- NOTE | 2019-04-23 13:42 | EKG REPORT ---
SEVERITY:- ABNORMAL ECG - SINUS TACHYCARDIA LEFT ANTERIOR FASCICULAR BLOCK LOW VOLTAGE IN FRONTAL LEADS BORDERLINE T WAVE ABNORMALITIES : Confirmed by: Valentino Portillo MD 23-Apr-2019 13:41:15
[2019-04-23] MEDS ORDERED: HEPARIN SOD (PORCINE) 1,000 UNIT/ML 10 ML VIAL IV PRN (16:21)
[2019-04-23] MEDS ORDERED: NORMAL SALINE 1000 ML 1,000 ML IV PRN (17:36)
[2019-04-23 18:32] LABS: APPEARANCE,URINE CLOUDY; BILIRUBIN,URINE NEGATIVE (NEGATIVE); CALCIUM OXALATE CRYSTALS,URINE FEW /HPF; COLOR,URINE AMBER; GLUCOSE, URINE NEGATIVE (NEGATIVE); KETONES,URINE NEGATIVE (NEGATIVE); LEUKOCYTE ESTERASE,URINE LARGE (NEGATIVE); NITRITE,URINE POSITIVE (NEGATIVE); PROTEIN,URINE 100 mg/dL (NEGATIVE); UROBILINOGEN,URINE NEGATIVE mg/dL (<2.0)
[2019-04-23 18:35] LABS: URINE SPECIFIC GRAVITY > 1.060
[2019-04-23] MEDS ORDERED: CEFTRIAXONE INJ 1000 MG VIAL IV ONE (20:07)
[2019-04-23] MEDS ORDERED: CEFTRIAXONE 1 GM/D5W RTU 1 GM/50 ML RTUPB IV ONE ×2 (20:21→21:01)
[2019-04-23 21:12] VITALS: BP 95/71
== END 2019-04-23 21:10 | disposition short-term general hospital (02) ==
LOC: ER 11:49
DX: I26.99 Other pulmonary embolism without acute cor pulmonale (principal); N39.0 Urinary tract infection, site not specified; R42 Dizziness and giddiness; R09.02 Hypoxemia; I10 Essential (primary) hypertension; Z88.3 Allergy status to other anti-infective agents; R06.02 Shortness of breath; R05 Cough; Z90.710 Acquired absence of both cervix and uterus; Z98.890 Other specified postprocedural states
CPT/HCPCS: 93005; 36415; 87040; 85025; 85610; 85730; 80053; 81001; 84484; 82803; 83605; 71045; 71275; 93010; J1644 ×2; J7030; J0696; 96365; 96366; 96368; 99291

== ENCOUNTER → 2019-06-16 | Outpatient (CLI) | payer MEDICARE, OTHER ==
[2019-06-16 15:25] LABS: ABSOLUTE EOSINOPHILS # (AUTO) 0.1 10^3/uL (0.0-0.6); ABSOLUTE MONOCYTES (AUTO) 0.4 10^3/uL (0.1-1.4); ABSOLUTE NEUT (AUTO) 8.9 10^3/uL (1.7-8.2); BASOPHILS % (AUTO) 0.3 % (0-2); EOSINOPHILS % (AUTO) 0.5 % (0-6); HEMATOCRIT 42.5 % (36.0-47.0); LYMPHOCYTES % (AUTO) 9.7 % (13-45); MEAN CORPUSCULAR HEMOGLOBIN 26.4 pg (27.0-33.4); MEAN CORPUSCULAR VOLUME 80 fl (80-97); MONOCYTES % (AUTO) 3.5 % (3-13); PLATELET COUNT 343 10^3/uL (150-450); RED CELL DISTRIBUTION WIDTH 16.4 % (11.5-14.0); TOTAL CELLS COUNTED % (AUTO) 100 %; WHITE BLOOD COUNT 10.4 10^3/uL (4.0-10.5)
--- NOTE | 2019-06-16 15:31 | RADIOLOGY REPORT (SQ) ---
EXAM DESCRIPTION: PELVIS AP COMPLETED DATE/TIME: 06/16/2019 2:47 pm REASON FOR STUDY: PRESSURE ULCER OF LEFT BUTTOCK, STAGE 4 L89.324 PRESSURE ULCER OF LEFT BUTTOCK, S TAGE 4 COMPARISON: 04/09/2019 NUMBER OF VIEWS: One view TECHNIQUE: AP Pelvis LIMITATIONS: None. FINDINGS: MINERALIZATION: Osteopenia. HIPS: No acute fracture or dislocation. No worrisome bone lesions. PELVIS AND SACRUM: No acute fracture or dislocation. No worrisome bone lesions. PUBIS AND ISCHIUM: There is irregularity a left ischium. Osteomyelitis cannot be excluded. LOWER LUMBAR SPINE: No significant findings as visualized. SOFT TISSUES: No findings. OTHER: No other significant finding. IMPRESSION: Osteopenia. Some sclerosis and irregularity of the left ischium. Osteomyelitis cannot be excluded. COMMENT: Pelvic fractures are often occult on plain radiographs. If strong clinical suspicion for f racture, recommend CT or MR. TECHNICAL DOCUMENTATION: JOB ID: [id number] [employer]- All Rights Reserved Reading location - IP/workstation name: [email or web address]
[2019-06-16 15:51] LABS: BLOOD UREA NITROGEN 32 mg/dL (7-20); CALCIUM 9.9 mg/dL (8.4-10.2); CARBON DIOXIDE 24 mmol/L (22-30); CHLORIDE 102 mmol/L (98-107); GLUCOSE 113 mg/dL (75-110); POTASSIUM 4.5 mmol/L (3.6-5.0)
[2019-06-16 15:52] LABS: ALBUMIN 3.8 g/dL (3.5-5.0); ALKALINE PHOSPHATASE 94 U/L (38-126); ANION GAP 11 (5-19); ASPARTATE AMINO TRANSFERASE 21 U/L (14-36); BILIRUBIN,DIRECT 0.5 mg/dL (0.0-0.4); BILIRUBIN,TOTAL 0.7 mg/dL (0.2-1.3); C-REACTIVE PROTEIN 52.1 mg/L (<10.0)
[2019-06-16 16:05] LABS: ERYTHROCYTE SEDIMENTATION RATE 46 mm/hr (0-30)
== END ==
LOC: WC 14:23
PROVIDERS: ATTEND Nurse Practitioner Family
DX: L89.324 Pressure ulcer of left buttock, stage 4 (principal); M85.88 Other specified disorders of bone density and structure, other site
CPT/HCPCS: 36415; 72170; 80053; 85025; 85652; 86140

== ENCOUNTER → 2019-07-15 | Outpatient (CLI) | payer MEDICARE, OTHER ==
[2019-07-15 12:15] LABS: ABSOLUTE EOSINOPHILS # (AUTO) 0.1 10^3/uL (0.0-0.6); ABSOLUTE LYMPHOCYTES (AUTO) 1.3 10^3/uL (0.5-4.7); ABSOLUTE MONOCYTES (AUTO) 0.6 10^3/uL (0.1-1.4); ABSOLUTE NEUT (AUTO) 9.6 10^3/uL (1.7-8.2); BASOPHILS % (AUTO) 0.4 % (0-2); EOSINOPHILS % (AUTO) 0.7 % (0-6); LYMPHOCYTES % (AUTO) 10.9 % (13-45); MEAN CORPUSCULAR HEMOGLOBIN 26.6 pg (27.0-33.4); MEAN CORPUSCULAR HGB CONC 33.2 g/dL (32.0-36.0); MEAN CORPUSCULAR VOLUME 80 fl (80-97); MONOCYTES % (AUTO) 4.8 % (3-13); PLATELET COUNT 344 10^3/uL (150-450); RED BLOOD COUNT 5.25 10^6/uL (3.72-5.28); RED CELL DISTRIBUTION WIDTH 16.9 % (11.5-14.0); SEGMENTED NEUTROPHILS % (AUTO) 83.2 % (42-78); TOTAL CELLS COUNTED % (AUTO) 100 %; WHITE BLOOD COUNT 11.5 10^3/uL (4.0-10.5)
[2019-07-15 12:45] LABS: ALKALINE PHOSPHATASE 79 U/L (38-126); ANION GAP 11 (5-19); ASPARTATE AMINO TRANSFERASE 22 U/L (14-36); BILIRUBIN,DIRECT 0.5 mg/dL (0.0-0.4); BILIRUBIN,TOTAL 0.7 mg/dL (0.2-1.3); BLOOD UREA NITROGEN 31 mg/dL (7-20); C-REACTIVE PROTEIN 36.7 mg/L (<10.0); CALCIUM 9.5 mg/dL (8.4-10.2); CARBON DIOXIDE 24 mmol/L (22-30); CHLORIDE 101 mmol/L (98-107); GLUCOSE 96 mg/dL (75-110); POTASSIUM 4.1 mmol/L (3.6-5.0); TOTAL PROTEIN 7.2 g/dL (6.3-8.2)
--- NOTE | 2019-07-15 12:51 | RADIOLOGY REPORT (SQ) ---
EXAM DESCRIPTION: PELVIS AP COMPLETED DATE/TIME: 07/15/2019 12:11 pm REASON FOR STUDY: PRESSURE ULCER OF LEFT BUTTOCK, STAGE 4 L89.324 PRESSURE ULCER OF LEFT BUTTOCK, S TAGE 4 E11.622 TYPE 2 DIABETES MELLITUS WITH OTHER SKIN ULCER COMPARISON: 06/16/2019 NUMBER OF VIEWS: One view TECHNIQUE: AP Pelvis LIMITATIONS: None. FINDINGS: MINERALIZATION: Normal. HIPS: No acute fracture or dislocation. No worrisome bone lesions. PELVIS AND SACRUM: No acute fracture or dislocation. No worrisome bone lesions. PUBIS AND ISCHIUM: Stable sclerotic changes in the left ischium. LOWER LUMBAR SPINE: No significant findings as visualized. SOFT TISSUES: Wound over the left ischium. This appears less prominent than on the earlier study. OTHER: No other significant finding. IMPRESSION: Stable sclerotic changes in the left ischium. COMMENT: Pelvic fractures are often occult on plain radiographs. If strong clinical suspicion for f racture, recommend CT or MR. TECHNICAL DOCUMENTATION: JOB ID: [id number] 2010 [email or web address]- All Rights Reserved Reading location - IP/workstation name: [email or web address]
[2019-07-15 12:56] LABS: ERYTHROCYTE SEDIMENTATION RATE 40 mm/hr (0-30)
== END ==
LOC: WC 11:46
PROVIDERS: ATTEND Nurse Practitioner Family
DX: E11.622 Type 2 diabetes mellitus with other skin ulcer (principal); L89.324 Pressure ulcer of left buttock, stage 4
CPT/HCPCS: 36415; 72170; 80053; 83036; 85025; 85652; 86140

== ENCOUNTER → 2019-08-05 | Outpatient (CLI) | payer MEDICARE, OTHER ==
--- NOTE | 2019-08-05 13:18 | RADIOLOGY REPORT (SQ) ---
EXAM DESCRIPTION: PELVIS AP COMPLETED DATE/TIME: 08/05/2019 12:52 pm REASON FOR STUDY: PRESSURE ULCER OF LEFT BUTTOCK, STAGE 4 L89.324 PRESSURE ULCER OF LEFT BUTTOCK, S TAGE 4 E11.622 TYPE 2 DIABETES MELLITUS WITH OTHER SKIN ULCER COMPARISON: 07/15/2019 NUMBER OF VIEWS: One view TECHNIQUE: AP Pelvis LIMITATIONS: None. FINDINGS: MINERALIZATION: Normal. HIPS: No acute fracture or dislocation. No worrisome bone lesions. PELVIS AND SACRUM: No acute fracture or dislocation. No worrisome bone lesions. PUBIS AND ISCHIUM: They are stable sclerotic changes in the left ischium. LOWER LUMBAR SPINE: No significant findings as visualized. SOFT TISSUES: No findings. OTHER: No other significant finding. IMPRESSION: Stable sclerotic changes in the left ischium. COMMENT: Pelvic fractures are often occult on plain radiographs. If strong clinical suspicion for f racture, recommend CT or MR. TECHNICAL DOCUMENTATION: JOB ID: [id number] 2010 [employer]- All Rights Reserved Reading location - IP/workstation name: [email or web address]
[2019-08-05 13:44] LABS: ABSOLUTE EOSINOPHILS # (AUTO) 0.1 10^3/uL (0.0-0.6); ABSOLUTE MONOCYTES (AUTO) 0.6 10^3/uL (0.1-1.4); ABSOLUTE NEUT (AUTO) 11.6 10^3/uL (1.7-8.2); BASOPHILS % (AUTO) 0.2 % (0-2); EOSINOPHILS % (AUTO) 0.5 % (0-6); HEMATOCRIT 39.7 % (36.0-47.0); HEMOGLOBIN 13.5 g/dL (12.0-15.5); LYMPHOCYTES % (AUTO) 7.9 % (13-45); MEAN CORPUSCULAR HEMOGLOBIN 27.5 pg (27.0-33.4); MEAN CORPUSCULAR HGB CONC 33.9 g/dL (32.0-36.0); MEAN CORPUSCULAR VOLUME 81 fl (80-97); MONOCYTES % (AUTO) 4.4 % (3-13); PLATELET COUNT 335 10^3/uL (150-450); RED CELL DISTRIBUTION WIDTH 16.5 % (11.5-14.0); TOTAL CELLS COUNTED % (AUTO) 100 %; WHITE BLOOD COUNT 13.3 10^3/uL (4.0-10.5)
[2019-08-05 14:13] LABS: ALBUMIN 3.8 g/dL (3.5-5.0); ALKALINE PHOSPHATASE 101 U/L (38-126); ANION GAP 9 (5-19); ASPARTATE AMINO TRANSFERASE 22 U/L (14-36); BILIRUBIN,TOTAL 0.6 mg/dL (0.2-1.3); BLOOD UREA NITROGEN 30 mg/dL (7-20); C-REACTIVE PROTEIN 57.7 mg/L (<10.0); CALCIUM 9.3 mg/dL (8.4-10.2); CARBON DIOXIDE 24 mmol/L (22-30); CHLORIDE 100 mmol/L (98-107); GLUCOSE 105 mg/dL (75-110); POTASSIUM 4.6 mmol/L (3.6-5.0); TOTAL PROTEIN 6.6 g/dL (6.3-8.2)
[2019-08-05 14:22] LABS: ERYTHROCYTE SEDIMENTATION RATE 54 mm/hr (0-30)
== END ==
LOC: WC 12:23
PROVIDERS: ATTEND Nurse Practitioner Family
DX: E11.622 Type 2 diabetes mellitus with other skin ulcer (principal); L89.324 Pressure ulcer of left buttock, stage 4
CPT/HCPCS: 36415; 72170; 80053; 83036; 85025; 85652; 86140

== ENCOUNTER → 2019-08-27 | Outpatient (CLI) | payer MEDICARE, OTHER ==
[2019-08-27 13:10] LABS: ABSOLUTE BASOPHILS # (AUTO) 0.1 10^3/uL (0.0-0.2); ABSOLUTE EOSINOPHILS # (AUTO) 0.1 10^3/uL (0.0-0.6); ABSOLUTE LYMPHOCYTES (AUTO) 0.9 10^3/uL (0.5-4.7); ABSOLUTE MONOCYTES (AUTO) 0.4 10^3/uL (0.1-1.4); ABSOLUTE NEUT (AUTO) 11.5 10^3/uL (1.7-8.2); BASOPHILS % (AUTO) 0.5 % (0-2); EOSINOPHILS % (AUTO) 0.5 % (0-6); HEMATOCRIT 40.1 % (36.0-47.0); HEMOGLOBIN 13.3 g/dL (12.0-15.5); LYMPHOCYTES % (AUTO) 7.2 % (13-45); MEAN CORPUSCULAR HEMOGLOBIN 27.6 pg (27.0-33.4); MEAN CORPUSCULAR HGB CONC 33.3 g/dL (32.0-36.0); MEAN CORPUSCULAR VOLUME 83 fl (80-97); MONOCYTES % (AUTO) 2.8 % (3-13); PLATELET COUNT 412 10^3/uL (150-450); RED BLOOD COUNT 4.82 10^6/uL (3.72-5.28); RED CELL DISTRIBUTION WIDTH 15.9 % (11.5-14.0); TOTAL CELLS COUNTED % (AUTO) 100 %; WHITE BLOOD COUNT 12.9 10^3/uL (4.0-10.5)
[2019-08-27 13:36] LABS: ALBUMIN 3.9 g/dL (3.5-5.0); ALKALINE PHOSPHATASE 94 U/L (38-126); ANION GAP 9 (5-19); ASPARTATE AMINO TRANSFERASE 19 U/L (14-36); BILIRUBIN,DIRECT 0.3 mg/dL (0.0-0.4); BILIRUBIN,TOTAL 0.6 mg/dL (0.2-1.3); BLOOD UREA NITROGEN 36 mg/dL (7-20); C-REACTIVE PROTEIN 66.3 mg/L (<10.0); CALCIUM 9.5 mg/dL (8.4-10.2); CARBON DIOXIDE 26 mmol/L (22-30); CHLORIDE 101 mmol/L (98-107); GLUCOSE 102 mg/dL (75-110); POTASSIUM 4.4 mmol/L (3.6-5.0); TOTAL PROTEIN 7.2 g/dL (6.3-8.2)
--- NOTE | 2019-08-27 13:38 | RADIOLOGY REPORT (SQ) ---
EXAM DESCRIPTION: PELVIS AP COMPLETED DATE/TIME: 08/27/2019 1:12 pm REASON FOR STUDY: PRESSURE ULCER OF LEFT BUTTOCK, STAGE 4 E11.622 TYPE 2 DIABETES MELLITUS WITH OTH ER SKIN ULCER L89.324 PRESSURE ULCER OF LEFT BUTTOCK, STAGE 4 COMPARISON: 08/05/2019 NUMBER OF VIEWS: One view TECHNIQUE: AP Pelvis LIMITATIONS: None. FINDINGS: MINERALIZATION: Normal. HIPS: No acute fracture or dislocation. No worrisome bone lesions. PELVIS AND SACRUM: No acute fracture or dislocation. No worrisome bone lesions. PUBIS AND ISCHIUM: There are stable sclerotic changes in the left ischium. LOWER LUMBAR SPINE: No significant findings as visualized. SOFT TISSUES: No findings. OTHER: No other significant finding. IMPRESSION: Stable sclerotic changes in the left ischium. COMMENT: Pelvic fractures are often occult on plain radiographs. If strong clinical suspicion for f racture, recommend CT or MR. TECHNICAL DOCUMENTATION: JOB ID: [id number] 2010 [employer]- All Rights Reserved Reading location - IP/workstation name: [email or web address]
[2019-08-27 13:59] LABS: ERYTHROCYTE SEDIMENTATION RATE 64 mm/hr (0-30)
== END ==
LOC: WC 12:25
PROVIDERS: ATTEND Nurse Practitioner Family
DX: E11.622 Type 2 diabetes mellitus with other skin ulcer (principal); L89.324 Pressure ulcer of left buttock, stage 4
CPT/HCPCS: 36415; 72170; 80053; 85025; 85652; 86140

== ENCOUNTER → 2019-11-11 | Outpatient (CLI) | payer MEDICARE, OTHER ==
[2019-11-11 14:25] LABS: ABSOLUTE LYMPHOCYTES (AUTO) 1.2 10^3/uL (0.5-4.7); ABSOLUTE MONOCYTES (AUTO) 0.2 10^3/uL (0.1-1.4); ABSOLUTE NEUT (AUTO) 6.7 10^3/uL (1.7-8.2); BASOPHILS % (AUTO) 0.4 % (0-2); EOSINOPHILS % (AUTO) 0.4 % (0-6); LYMPHOCYTES % (AUTO) 14.7 % (13-45); MEAN CORPUSCULAR HEMOGLOBIN 27.5 pg (27.0-33.4); MEAN CORPUSCULAR HGB CONC 33.4 g/dL (32.0-36.0); MEAN CORPUSCULAR VOLUME 82 fl (80-97); MONOCYTES % (AUTO) 2.8 % (3-13); PLATELET COUNT 366 10^3/uL (150-450); RED BLOOD COUNT 4.74 10^6/uL (3.72-5.28); RED CELL DISTRIBUTION WIDTH 15.5 % (11.5-14.0); SEGMENTED NEUTROPHILS % (AUTO) 81.7 % (42-78); TOTAL CELLS COUNTED % (AUTO) 100 %; WHITE BLOOD COUNT 8.1 10^3/uL (4.0-10.5)
[2019-11-11 14:47] LABS: ALBUMIN 3.7 g/dL (3.5-5.0); ALKALINE PHOSPHATASE 72 U/L (38-126); ANION GAP 8 (5-19); ASPARTATE AMINO TRANSFERASE 19 U/L (14-36); BILIRUBIN,TOTAL 0.4 mg/dL (0.2-1.3); BLOOD UREA NITROGEN 23 mg/dL (7-20); C-REACTIVE PROTEIN 49.8 mg/L (<10.0); CALCIUM 9.6 mg/dL (8.4-10.2); CARBON DIOXIDE 25 mmol/L (22-30); CHLORIDE 101 mmol/L (98-107); GLUCOSE 117 mg/dL (75-110); POTASSIUM 4.6 mmol/L (3.6-5.0); TOTAL PROTEIN 6.9 g/dL (6.3-8.2)
[2019-11-11 15:00] LABS: ERYTHROCYTE SEDIMENTATION RATE 70 mm/hr (0-30)
--- NOTE | 2019-11-11 15:50 | RADIOLOGY REPORT (SQ) ---
EXAM DESCRIPTION: PELVIS AP IMAGES COMPLETED DATE/TIME: 11/11/2019 3:24 pm REASON FOR STUDY: PRESSURE ULCER OF LEFT BUTTOCK, STAGE 4 E11.622 TYPE 2 DIABETES MELLITUS WITH OTH ER SKIN ULCER L89.324 PRESSURE ULCER OF LEFT BUTTOCK, STAGE 4 COMPARISON: 08/27/2019 NUMBER OF VIEWS: One view TECHNIQUE: AP Pelvis LIMITATIONS: None. FINDINGS: MINERALIZATION: Normal. HIPS: No acute fracture or dislocation. No worrisome bone lesions. PELVIS AND SACRUM: No acute fracture or dislocation. No worrisome bone lesions. PUBIS AND ISCHIUM: There are stable sclerotic changes in the left ischium LOWER LUMBAR SPINE: No significant findings as visualized. SOFT TISSUES: No findings. OTHER: No other significant finding. IMPRESSION: Stable sclerotic changes in the left ischium. COMMENT: Pelvic fractures are often occult on plain radiographs. If strong clinical suspicion for f racture, recommend CT or MR. TECHNICAL DOCUMENTATION: JOB ID: [id number] 2010 [employer]- All Rights Reserved Reading location - IP/workstation name: [email or web address]
== END ==
LOC: OD 13:47
PROVIDERS: ATTEND Nurse Practitioner Family
DX: L89.324 Pressure ulcer of left buttock, stage 4 (principal); E11.9 Type 2 diabetes mellitus without complications
CPT/HCPCS: 36415; 72170; 80053; 83036; 85025; 85652; 86140

== ENCOUNTER → 2019-12-23 | Outpatient (CLI) | payer MEDICARE, OTHER ==
[2019-12-23 13:21] LABS: ABSOLUTE LYMPHOCYTES (AUTO) 0.9 10^3/uL (0.5-4.7); ABSOLUTE MONOCYTES (AUTO) 0.2 10^3/uL (0.1-1.4); ABSOLUTE NEUT (AUTO) 9.4 10^3/uL (1.7-8.2); BASOPHILS % (AUTO) 0.3 % (0-2); EOSINOPHILS % (AUTO) 0.4 % (0-6); HEMATOCRIT 37.6 % (36.0-47.0); HEMOGLOBIN 12.9 g/dL (12.0-15.5); LYMPHOCYTES % (AUTO) 8.5 % (13-45); MEAN CORPUSCULAR HEMOGLOBIN 28.2 pg (27.0-33.4); MEAN CORPUSCULAR HGB CONC 34.2 g/dL (32.0-36.0); MEAN CORPUSCULAR VOLUME 83 fl (80-97); PLATELET COUNT 313 10^3/uL (150-450); RED BLOOD COUNT 4.55 10^6/uL (3.72-5.28); RED CELL DISTRIBUTION WIDTH 16.6 % (11.5-14.0); SEGMENTED NEUTROPHILS % (AUTO) 88.8 % (42-78); TOTAL CELLS COUNTED % (AUTO) 100 %; WHITE BLOOD COUNT 10.6 10^3/uL (4.0-10.5)
[2019-12-23 13:43] LABS: ALBUMIN 3.8 g/dL (3.5-5.0); ALKALINE PHOSPHATASE 77 U/L (38-126); ANION GAP 6 (5-19); ASPARTATE AMINO TRANSFERASE 19 U/L (14-36); BILIRUBIN,TOTAL 0.4 mg/dL (0.2-1.3); BLOOD UREA NITROGEN 24 mg/dL (7-20); C-REACTIVE PROTEIN 36.1 mg/L (<10.0); CALCIUM 9.6 mg/dL (8.4-10.2); CARBON DIOXIDE 27 mmol/L (22-30); CHLORIDE 101 mmol/L (98-107); GLUCOSE 104 mg/dL (75-110); POTASSIUM 4.6 mmol/L (3.6-5.0); TOTAL PROTEIN 6.8 g/dL (6.3-8.2)
[2019-12-23 14:06] LABS: ERYTHROCYTE SEDIMENTATION RATE 52 mm/hr (0-30)
--- NOTE | 2019-12-23 15:10 | RADIOLOGY REPORT (SQ) ---
EXAM DESCRIPTION: PELVIS AP IMAGES COMPLETED DATE/TIME: 12/23/2019 12:43 pm REASON FOR STUDY: PRESSURE ULCER OF LEFT BUTTOCK, STAGE 4 L89.324 PRESSURE ULCER OF LEFT BUTTOCK, S TAGE 4 E11.621 TYPE 2 DIABETES MELLITUS WITH FOOT ULCER COMPARISON: 11/11/2019 NUMBER OF VIEWS: One view TECHNIQUE: AP Pelvis LIMITATIONS: None. FINDINGS: MINERALIZATION: Normal. HIPS: No acute fracture or dislocation. No worrisome bone lesions. PELVIS AND SACRUM: No acute fracture or dislocation. No worrisome bone lesions. PUBIS AND ISCHIUM: Stable sclerotic changes in the left ischium. LOWER LUMBAR SPINE: No significant findings as visualized. SOFT TISSUES: No findings. OTHER: No other significant finding. IMPRESSION: Stable sclerotic changes in the left ischium, suggesting healing. COMMENT: Pelvic fractures are often occult on plain radiographs. If strong clinical suspicion for f racture, recommend CT or MR. TECHNICAL DOCUMENTATION: JOB ID: [id number] 2010 [employer]- All Rights Reserved Reading location - IP/workstation name: [email or web address]
== END ==
LOC: WC 12:15
PROVIDERS: ATTEND Nurse Practitioner Family
DX: E11.621 Type 2 diabetes mellitus with foot ulcer (principal); L89.324 Pressure ulcer of left buttock, stage 4
CPT/HCPCS: 36415; 72170; 80053; 85025; 85652; 86140

== ENCOUNTER → 2020-01-29 | Outpatient (CLI) | payer MEDICARE, OTHER ==
[2020-01-29 12:37] LABS: ABSOLUTE BASOPHILS # (AUTO) 0.1 10^3/uL (0.0-0.2); ABSOLUTE EOSINOPHILS # (AUTO) 0.2 10^3/uL (0.0-0.6); ABSOLUTE MONOCYTES (AUTO) 0.7 10^3/uL (0.1-1.4); ABSOLUTE NEUT (AUTO) 9.3 10^3/uL (1.7-8.2); BASOPHILS % (AUTO) 0.6 % (0-2); EOSINOPHILS % (AUTO) 1.6 % (0-6); HEMATOCRIT 39.9 % (36.0-47.0); HEMOGLOBIN 13.2 g/dL (12.0-15.5); LYMPHOCYTES % (AUTO) 16.3 % (13-45); MEAN CORPUSCULAR HEMOGLOBIN 27.8 pg (27.0-33.4); MEAN CORPUSCULAR VOLUME 84 fl (80-97); MONOCYTES % (AUTO) 5.6 % (3-13); PLATELET COUNT 372 10^3/uL (150-450); RED BLOOD COUNT 4.74 10^6/uL (3.72-5.28); RED CELL DISTRIBUTION WIDTH 16.4 % (11.5-14.0); SEGMENTED NEUTROPHILS % (AUTO) 75.9 % (42-78); TOTAL CELLS COUNTED % (AUTO) 100 %; WHITE BLOOD COUNT 12.3 10^3/uL (4.0-10.5)
--- NOTE | 2020-01-29 12:57 | RADIOLOGY REPORT (SQ) ---
EXAM DESCRIPTION: PELVIS AP IMAGES COMPLETED DATE/TIME: 01/29/2020 12:33 pm REASON FOR STUDY: PRESSURE ULCER OF LEFT BUTTOCK, STAGE 4 L89.324 PRESSURE ULCER OF LEFT BUTTOCK, S TAGE 4 E11.621 TYPE 2 DIABETES MELLITUS WITH FOOT ULCER COMPARISON: None. NUMBER OF VIEWS: One view TECHNIQUE: AP Pelvis LIMITATIONS: None. FINDINGS: MINERALIZATION: Normal. HIPS: No acute fracture or dislocation. No worrisome bone lesions. PELVIS AND SACRUM: No acute fracture or dislocation. No worrisome bone lesions. PUBIS AND ISCHIUM: Stable sclerotic changes in the left ischium. LOWER LUMBAR SPINE: No significant findings as visualized. SOFT TISSUES: No findings. OTHER: No other significant finding. IMPRESSION: Stable sclerotic changes in the left ischium. COMMENT: Pelvic fractures are often occult on plain radiographs. If strong clinical suspicion for f racture, recommend CT or MR. TECHNICAL DOCUMENTATION: JOB ID: [id number] 2010 [employer]- All Rights Reserved Reading location - IP/workstation name: [email or web address]
[2020-01-29 13:12] LABS: ALBUMIN 3.8 g/dL (3.5-5.0); ALKALINE PHOSPHATASE 63 U/L (38-126); ANION GAP 7 (5-19); ASPARTATE AMINO TRANSFERASE 19 U/L (14-36); BILIRUBIN,DIRECT 0.3 mg/dL (0.0-0.4); BILIRUBIN,TOTAL 0.6 mg/dL (0.2-1.3); BLOOD UREA NITROGEN 32 mg/dL (7-20); C-REACTIVE PROTEIN 26.5 mg/L (<10.0); CALCIUM 9.2 mg/dL (8.4-10.2); CARBON DIOXIDE 27 mmol/L (22-30); CHLORIDE 103 mmol/L (98-107); GLUCOSE 109 mg/dL (75-110); POTASSIUM 4.2 mmol/L (3.6-5.0); TOTAL PROTEIN 6.6 g/dL (6.3-8.2)
[2020-01-29 13:21] LABS: ERYTHROCYTE SEDIMENTATION RATE 39 mm/hr (0-30)
== END ==
LOC: WC 11:54
PROVIDERS: ATTEND Nurse Practitioner Family
DX: E11.621 Type 2 diabetes mellitus with foot ulcer (principal); L89.324 Pressure ulcer of left buttock, stage 4
CPT/HCPCS: 36415; 72170; 80053; 85025; 85652; 86140

== ENCOUNTER 2020-02-10 08:52 | Day surgery (SDC) | payer MEDICARE, OTHER ==
[~2020-02-10 08:52] MED LIST changes: -CEFAZOLIN 1 GM/D5W RTU 1 GM/50 ML RTUPB IV PRN; +CHONDR SU A NA/HYALUR INTRAOC KIT (SURGICARE) ONE; +EPINEPHRINE INJ/PF 1 MG/1 ML AMPULE ONE; +KETOROLAC TROMETHAMINE 0.45% 4 DROP/0.4 ML DROPERETTE OS PRN; -LACTATED RINGERS 1000 ML IV PRN; -LIDOCAINE 0.5% INJ-PF (5 MG/ML) 50 ML SDV SUBCUT PRN; +LIDOCAINE 1%/PHENYLEPHRINE 1.5% 0.8 ML SYRINGE ONE
[2020-02-10] MEDS ORDERED: ONDANSETRON HCL INJ/PF 4 MG/2 ML SDV ONE (09:44)
[2020-02-10] MEDS ORDERED: MIDAZOLAM 2 MG/2 ML INJ ONE (09:44)
[2020-02-10] MEDS ORDERED: FENTANYL CITRATE INJ/PF 100 MCG/2 ML AMPUL ONE (09:44)
[2020-02-10] MEDS: CYCLOPENTOLATE 0.2%/PHENYLEPHRINE 1% OPH SOLN 2 ML OS PRN ×3 (10:00→10:20)
[2020-02-10] MEDS: TETRACAINE HCL 0.5% OPH SOLN 4 ML OS PRN ×3 (10:00→12:01)
[2020-02-10] MEDS: TROPICAMIDE 1% OPH SOLN 15 ML OS PRN ×3 (10:00→10:20)
[2020-02-10] MEDS: BESIFLOXACIN HCL 0.6% OPH SUSP 5 ML BOTTLE OS PRN ×4 (10:00→12:24)
[2020-02-10] MEDS: DORZOLAMIDE HCL 2%/TIMOLOL MALEAT 0.5% OPH SOLN 10 ML OS PRN ×2 (12:24)
--- NOTE | 2020-02-11 20:50 | Operative Report ---
Operative Report-[facility] Operative Report: PREOPERATIVE DIAGNOSIS: Nuclear, cortical and posterior subcapsular cataract, left eye POSTOPERATIVE DIAGNOSIS: Nuclear, cortical and posterior subcapsular cataracts, left eye PROCEDURE: Phacoemulsification and posterior chamber intraocular lens implant, left eye PROCEDURE DATE: [February 10, 2020] SURGEON: Saurav Jimenez MD Next DENTAL ASSISTANT MEDICAL ASSISTANT: [Jeanine] ANESTHESIA: Topical with IV sedation next COMPLICATIONS: None TISSUE TO PATHOLOGY: None ESTIMATED BLOOD LOSS: None INDICATION FOR SURGERY: [Ms. Galo is a 64 year old female] Who presents to our clinic complaining of difficulty seeing, to read and drive due to blurry vision in both eyes. On examination, she was found to have best corrected visual acuity of [20/50] in the left eye. Ophthalmoscopy revealed a [+2] nuclear, [+3] corneal degeneration, [+1] posterior subcapsular cataract in the left eye with normal appearing cornea, vitreous, retina and optic nerve. I discussed the findings of the exam with the patient. We discussed the risks, benefits and alternatives of cataract extraction and intraocular lens implant in the left eye as a means of improving her vision. Risks that were discussed with the patient include infection, bleeding, retinal detachment and possible need for additional surgery. The patient understands that she may need to wear glasses after surgery. After discussion, the patient indicated her interest in having this procedure performed by signing an informed witness consent form. REPORT OF PROCEDURE: On the day of surgery, the patient was given a topical application to the left eye to consist of drop of Tetracaine 0.5%, tropicamide 1%, Cyclomidril, Besivance 0.6% and Acular 0.45%. The patient was then taken to the operating room in a supine position in a standard eye bed. Intravenous sedation was administered and she was prepped and draped in the standard fashion. A timeout was performed to confirm the surgical site. Attention was directed to the left eye where a paracentesis was created at the 5:30 position at the corneal limbus with a 15 degree blade. The anterior chamber was filled with 0.3 mL of 1% methylparaben free lidocaine and after 30 seconds the anterior chamber was filled with viscoelastic material. A 3 plane corneal incision was then made at the 3 o'clock position at the cornea limbus with a keratome. A continuous curvilinear capsulorrhexis was then made in the anterior capsule of the lens with a cystotome. The lens was hydrodissected using balanced saline solution. The lens nucleus was then removed by phacoemulsification using the stop and chop technique. CDE [11.09 ]. The remaining cortical material was then removed from the posterior capsular bag using irrigation and aspiration. The posterior capsule bag was filled with viscoelastic material and a lens implant was inserted into the posterior capsule bag. I have chosen for this case is a one piece acrylic lens from [employer] model [[id number]] serial number [[id number]], lens power [21.5]. The lens was removed from its package, inspected and found to be free of defects it was loaded into a [place] D inserte r. The stone cutter was passed through the temporal wound and the lens was advanced into the posterior capsular bag. The lens implant was centered in the posterior capsular bag with the [place] spatula the viscoelastic material was removed from the eye using irrigation and aspiration. The wounds were closed by stromal hydration and they were tested with the Weck-Mariola sponges and found to have no leaks. Intraocular pressure was assessed by manual palpitation found to be with in the physiologic range. The drape and speculum were removed. Drops of Durezol, Combigan and gatifloxacin were instilled in the left eye. The patient was then taken to the recovery room in good condition. The patient tolerated the procedure very well. The patient was given a prescription for gatifloxacin, Durezol and Ilervo to use every 2 hours while awake today. She will return my clinic tomorrow for follow-up evaluation.
== END 2020-02-10 13:05 | disposition home or self-care (01) ==
LOC: SC 08:52
PROVIDERS: ATTEND Ophthalmology
DX: H25.812 Combined forms of age-related cataract, left eye (principal); Z98.41 Cataract extraction status, right eye; I10 Essential (primary) hypertension; E03.9 Hypothyroidism, unspecified; Z79.82 Long term (current) use of aspirin; Z79.899 Other long term (current) drug therapy; Z86.711 Personal history of pulmonary embolism; Z88.1 Allergy status to other antibiotic agents; Z83.3 Family history of diabetes mellitus; Z82.49 Family history of ischemic heart disease and other diseases of the circulatory system
CPT/HCPCS: 66984; 00142; V2632; J2250; J3490 ×3; A9270; J0171; J3010; J2405; 142

== ENCOUNTER 2020-02-17 10:25 | Inpatient (IN) | payer MEDICARE, OTHER ==
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
[2020-02-17 11:27] LABS: ABSOLUTE BASOPHILS # (AUTO) 0.1 10^3/uL (0.0-0.2); ABSOLUTE LYMPHOCYTES (AUTO) 1.3 10^3/uL (0.5-4.7); ABSOLUTE MONOCYTES (AUTO) 1.1 10^3/uL (0.1-1.4); ABSOLUTE NEUT (AUTO) 14.6 10^3/uL (1.7-8.2); BASOPHILS % (AUTO) 0.6 % (0-2); EOSINOPHILS % (AUTO) 0.2 % (0-6); HEMATOCRIT 46.2 % (36.0-47.0); HEMOGLOBIN 16.1 g/dL (12.0-15.5); LYMPHOCYTES % (AUTO) 7.5 % (13-45); MEAN CORPUSCULAR HEMOGLOBIN 29.1 pg (27.0-33.4); MEAN CORPUSCULAR HGB CONC 34.8 g/dL (32.0-36.0); MEAN CORPUSCULAR VOLUME 84 fl (80-97); MONOCYTES % (AUTO) 6.6 % (3-13); PLATELET COUNT 370 10^3/uL (150-450); RED BLOOD COUNT 5.53 10^6/uL (3.72-5.28); RED CELL DISTRIBUTION WIDTH 15.9 % (11.5-14.0); SEGMENTED NEUTROPHILS % (AUTO) 85.1 % (42-78); TOTAL CELLS COUNTED % (AUTO) 100 %; WHITE BLOOD COUNT 17.1 10^3/uL (4.0-10.5)
[2020-02-17 11:47] LABS: ALBUMIN 4.3 g/dL (3.5-5.0); ALKALINE PHOSPHATASE 94 U/L (38-126); ANION GAP 9 (5-19); ASPARTATE AMINO TRANSFERASE 125 U/L (14-36); BILIRUBIN,DIRECT 0.3 mg/dL (0.0-0.4); BILIRUBIN,TOTAL 0.8 mg/dL (0.2-1.3); BLOOD UREA NITROGEN 35 mg/dL (7-20); CALCIUM 10.1 mg/dL (8.4-10.2); CARBON DIOXIDE 27 mmol/L (22-30); CHLORIDE 100 mmol/L (98-107); GLUCOSE 123 mg/dL (75-110); POTASSIUM 4.3 mmol/L (3.6-5.0); TOTAL PROTEIN 7.5 g/dL (6.3-8.2)
--- NOTE | 2020-02-17 12:04 | RADIOLOGY REPORT (SQ) ---
EXAM DESCRIPTION: ANKLE RIGHT COMPLETE; FOOT RIGHT COMPLETE IMAGES COMPLETED DATE/TIME: 02/17/2020 10:35 am REASON FOR STUDY: R ankle/foot redness, swelling COMPARISON: None. NUMBER OF VIEWS: Six views. TECHNIQUE: AP, lateral, and oblique radiographic images acquired of the right foot and ankle. LIMITATIONS: None. FINDINGS: MINERALIZATION: Osteopenia. BONES: No acute fracture or dislocation. No worrisome bone lesions. JOINTS: No ankle joint effusion. SOFT TISSUES: Diffuse soft tissue swelling at the forefoot. OTHER: No other significant finding. IMPRESSION: Soft tissue swelling. Marked osteopenia. No acute fracture or destructive bone lesion. TECHNICAL DOCUMENTATION: JOB ID: [id number] 2010 [employer]- All Rights Reserved Reading location - IP/workstation name: [email or web address]
--- NOTE | 2020-02-17 12:04 | RADIOLOGY REPORT (SQ) ---
EXAM DESCRIPTION: ANKLE RIGHT COMPLETE; FOOT RIGHT COMPLETE IMAGES COMPLETED DATE/TIME: 02/17/2020 10:35 am REASON FOR STUDY: R ankle/foot redness, swelling COMPARISON: None. NUMBER OF VIEWS: Six views. TECHNIQUE: AP, lateral, and oblique radiographic images acquired of the right foot and ankle. LIMITATIONS: None. FINDINGS: MINERALIZATION: Osteopenia. BONES: No acute fracture or dislocation. No worrisome bone lesions. JOINTS: No ankle joint effusion. SOFT TISSUES: Diffuse soft tissue swelling at the forefoot. OTHER: No other significant finding. IMPRESSION: Soft tissue swelling. Marked osteopenia. No acute fracture or destructive bone lesion. TECHNICAL DOCUMENTATION: JOB ID: [id number] 2010 [email or web address]- All Rights Reserved Reading location - IP/workstation name: [email or web address]
[2020-02-17] MEDS ORDERED: CEFEPIME 2 GM/D5W RTU 2 GM/50 ML RTUPB IV ONE (13:15)
[2020-02-17] MEDS ORDERED: VANCOMYCIN HCL INJ 1000 MG VIAL IV ONE (13:16)
[2020-02-17] MEDS ORDERED: NORMAL SALINE 1000 ML 1,000 ML IV ONE (13:28)
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
--- NOTE | 2020-02-17 14:58 | RADIOLOGY REPORT (SQ) ---
EXAM DESCRIPTION: VENOUS UNILATERAL LOWER IMAGES COMPLETED DATE/TIME: 02/17/2020 2:42 pm REASON FOR STUDY: RLE swelling, erythema, blistering COMPARISON: None. TECHNIQUE: Dynamic and static minor scale and color images acquired of the right leg venous system. S elected spectral images acquired with additional compression and augmentation maneuvers. The contrala teral common femoral vein and saphenofemoral junction were also imaged. Images stored on PACS. LIMITATIONS: None. FINDINGS: COMMON FEMORAL: Normal phasicity, compression and augmentation. No visualized echogenic ma terial on minor scale. No defects on color images. FEMORAL: Normal compression and augmentation. No visualized echogenic material on minor scale. No defe cts on color images. POPLITEAL: Normal compression, augmentation. No visualized echogenic material on minor scale. No defec ts on color images. CALF VESSELS: Normal compression, augmentation. No visualized echogenic material on minor scale. No de fects on color images. GSV and SSV: Normal compression, augmentation. No visualized echogenic material on minor scale. No def ects on color images. ANY DEEP VENOUS INSUFFICIENCY: Not evaluated. ANY EVIDENCE OF POPLITEAL CYST: No. OTHER: No other significant finding. CONTRALATERAL COMMON FEMORAL VEIN AND SAPHENOFEMORAL JUNCTION: Normal phasicity, compression and augmentation. No visualized echogenic material on minor scale. No de fects on color images. IMPRESSION: NO EVIDENCE DVT OR SVT IN THE RIGHT LEG. TECHNICAL DOCUMENTATION: JOB ID: [id number] 2010 [employer]- All Rights Reserved Reading location - IP/workstation name: [email or web address]
[2020-02-17] MEDS ORDERED: ACETAMINOPHEN 325 MG TABLET PO PRN (16:42)
[2020-02-17] MEDS ORDERED: VANCOMYCIN HCL 0 MG in DEXTROSE 5%-WATER 250 ML IV NR (17:00)
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
[2020-02-17] MEDS: PREDNISONE 10 MG TABLET PO SCH (18:32)
[2020-02-17] MEDS: APIXABAN 5 MG TABLET PO SCH (19:07)
[2020-02-17] MEDS: OXYBUTYNIN CHLORIDE 5 MG TABLET PO SCH (19:52)
[2020-02-17] MEDS: BACLOFEN 10 MG TABLET PO SCH (19:52)
[2020-02-17] MEDS ORDERED: SILVER SULFADIAZINE 1% CREAM 400 GM TP PRN (21:16)
[2020-02-17] MEDS ORDERED: (PENDING PHARMACY ID) (Lisinopril [Lisinopril] 10 MG) PO SCH (22:00)
[2020-02-17] MEDS: LISINOPRIL 10 MG TABLET PO SCH (22:00)
[2020-02-18 06:11] LABS: MEAN CORPUSCULAR VOLUME 83 fl (80-97)
[2020-02-18 06:12] LABS: ALBUMIN 3.1 g/dL (3.5-5.0); ALKALINE PHOSPHATASE 64 U/L (38-126); ANION GAP 9 (5-19); ASPARTATE AMINO TRANSFERASE 171 U/L (14-36); BILIRUBIN,DIRECT 0.3 mg/dL (0.0-0.4); BLOOD UREA NITROGEN 27 mg/dL (7-20); CALCIUM 8.9 mg/dL (8.4-10.2); CARBON DIOXIDE 22 mmol/L (22-30); CHLORIDE 101 mmol/L (98-107); GLUCOSE 104 mg/dL (75-110); POTASSIUM 4.7 mmol/L (3.6-5.0); TOTAL PROTEIN 5.7 g/dL (6.3-8.2)
[2020-02-18] MEDS: VANCOMYCIN HCL 1,000 MG in DEXTROSE 5%-WATER 250 ML IV SCH ×2 (06:24→17:41)
[2020-02-18 06:33] LABS: ABSOLUTE BASOPHILS # (AUTO) 0.1 10^3/uL (0.0-0.2); ABSOLUTE EOSINOPHILS # (AUTO) 0.1 10^3/uL (0.0-0.6); ABSOLUTE LYMPHOCYTES (AUTO) 2.9 10^3/uL (0.5-4.7); ABSOLUTE MONOCYTES (AUTO) 1.1 10^3/uL (0.1-1.4); ABSOLUTE NEUT (AUTO) 6.8 10^3/uL (1.7-8.2); BASOPHILS % (AUTO) 0.7 % (0-2); EOSINOPHILS % (AUTO) 0.8 % (0-6); HEMATOCRIT 39.8 % (36.0-47.0); LYMPHOCYTES % (AUTO) 26.8 % (13-45); MEAN CORPUSCULAR HEMOGLOBIN 28.3 pg (27.0-33.4); MEAN CORPUSCULAR HGB CONC 34.1 g/dL (32.0-36.0); MONOCYTES % (AUTO) 10.2 % (3-13); PLATELET COUNT 296 10^3/uL (150-450); RED BLOOD COUNT 4.79 10^6/uL (3.72-5.28); SEGMENTED NEUTROPHILS % (AUTO) 61.5 % (42-78); TOTAL CELLS COUNTED % (AUTO) 100 %
[2020-02-18 06:37] LABS: HEMOGLOBIN 13.6 g/dL (12.0-15.5)
[2020-02-18] MEDS ORDERED: ONDANSETRON 4 MG TAB.RAPDIS PO PRN (08:00)
[2020-02-18] MEDS: APIXABAN 5 MG TABLET PO SCH ×3 (10:00→17:43)
[2020-02-18] MEDS ORDERED: MV CALCIUM MIN PO SCH (10:00)
[2020-02-18] MEDS ORDERED: IRON PO SCH (10:00)
[2020-02-18] MEDS ORDERED: VITK PO SCH (10:00)
[2020-02-18] MEDS ORDERED: FOLIC PO SCH (10:00)
[2020-02-18] MEDS ORDERED: (PENDING PHARMACY ID) (Calcium Carbonate [Calcium] 500 MG) PO SCH (10:00)
--- NOTE | 2020-02-18 10:23 | PDOC PROGRESS REPORT ---
Subjective Progress Note for:: 02/18/20 Subjective:: This is a 64-year-old female with profound swelling, bulla formation, and purple discoloration of the right lower extremity. Patient is a paraplegic, and cannot move her leg. Her symptoms started, after an Unna boot was placed as an outpatient. She denies any pain. She reports low-grade fevers. She denies shortness of breath, chest pain, nausea, vomiting, headache, dizziness. Reason For Visit: CELLULITIS OF RIGHTS LOWER EXTREMITY Physical Exam Vital Signs: Temp Pulse Resp BP Pulse Ox 99.7 F 104 H 17 111/64 97 02/18/20 08:16 02/18/20 07:13 02/18/20 07:13 02/18/20 07:13 02/18/20 07:13 Intake & Output 02/17/20 02/18/20 02/19/20 06:59 06:59 06:59 Intake Total 1586 250 Output Total 1350 Balance 236 250 Weight 84.368 kg General appearance: PRESENT: no acute distress, cooperative Head exam: PRESENT: atraumatic, normocephalic Eye exam: PRESENT: EOMI, PERRLA. ABSENT: scleral icterus Mouth exam: PRESENT: moist, neck supple Neck exam: ABSENT: tenderness, thyromegaly, tracheal deviation Respiratory exam: PRESENT: unlabored. ABSENT: tachypnea, wheezes Cardiovascular exam: PRESENT: tachycardia - Mild GI/Abdominal exam: PRESENT: soft. ABSENT: distended, tenderness Rectal exam: PRESENT: deferred Extremities exam: PRESENT: other - Erythema, bulla formation, severe edema, patchy purple discoloration (purpura) of the right foot, ankle, and lower extremity extending up to the knee. Large denuded area of skin on the dorsum of the foot, encompassing almost the entire foot. Neurological exam: PRESENT: alert, awake, oriented to person, oriented to place, oriented to time, oriented to situation Psychiatric exam: ABSENT: agitated, anxious, depressed Focused psych exam: ABSENT: delusional Skin exam: PRESENT: erythema, warm Results Laboratory Results: 02/18/20 04:55 02/18/20 04:55 02/17/20 02/17/20 02/17/20 11:15 11:15 11:15 WBC 17.1 H RBC 5.53 H Hgb 16.1 H Hct 46.2 MCV 84 MCH 29.1 MCHC 34.8 RDW 15.9 H Plt Count 370 Seg Neutrophils % 85.1 H Sodium 135.8 L Potassium 4.3 Chloride 100 Carbon Dioxide 27 Anion Gap 9 BUN 35 H Creatinine 0.67 Est GFR ( Amer) > 60 Glucose 123 H Lactic Acid 1.7 Calcium 10.1 Total Bilirubin 0.8 AST 125 H Alkaline Phosphatase 94 Total Protein 7.5 Albumin 4.3 02/18/20 02/18/20 04:55 04:55 WBC 11.0 H RBC 4.79 Hgb 13.6 D Hct 39.8 MCV 83 MCH 28.3 MCHC 34.1 RDW 16.0 H Plt Count 296 Seg Neutrophils % 61.5 Sodium 131.5 L Potassium 4.7 Chloride 101 Carbon Dioxide 22 Anion Gap 9 BUN 27 H Creatinine 0.67 Est GFR ( Amer) > 60 Glucose 104 Lactic Acid Calcium 8.9 Total Bilirubin 1.0 AST 171 H Alkaline Phosphatase 64 Total Protein 5.7 L Albumin 3.1 L Impressions: Ankle X-Ray 02/17/20 11:07 IMPRESSION: Soft tissue swelling. Marked osteopenia. No acute fracture or destructive bone lesion. Foot X-Ray 02/17/20 11:07 IMPRESSION: Soft tissue swelling. Marked osteopenia. No acute fracture or destructive bone lesion. Venous Doppler Study 02/17/20 11:07 IMPRESSION: NO EVIDENCE DVT OR SVT IN THE RIGHT LEG. Assessment & Plan - Time Anticipated Discharge Disposition: unknown Anticipated Discharge Timeframe: unknown - Plan Summary Plan Summary: 64-year-old female with skin sloughing, bulla formation, pruritic lesions, and erythema extending from the foot up to the knee. I believe this to represent a severe, limb threatening infection. Discussed this at length with the patient. I have relayed to the patient that in light of her current physical exam findings, she should begin to consider amputation. In light of this discussion, the patient has requested transfer of care to a higher level (tertiary care facility). Until this can be arranged, continue broad-spectrum antibiotics. Elevate the lower extremity. Keep the patient n.p.o.
[2020-02-18] MEDS: CALCIUM CARBONATE 600 MG TABLET PO SCH (10:46)
[2020-02-18] MEDS: BACLOFEN 10 MG TABLET PO SCH ×3 (10:46→17:41)
[2020-02-18] MEDS: ASPIRIN 81 MG TABLET, CHEWABLE PO SCH (10:46)
[2020-02-18] MEDS: MULTIVITAMIN TABLET PO SCH (10:46)
[2020-02-18] MEDS: LEVOTHYROXINE SODIUM 0.088 MG TABLET PO SCH (10:46)
[2020-02-18] MEDS: FERROUS SULFATE 325 MG TABLET PO SCH (10:46)
[2020-02-18] MEDS: PREDNISONE 10 MG TABLET PO SCH (10:47)
[2020-02-18] MEDS: OXYBUTYNIN CHLORIDE 5 MG TABLET PO SCH ×3 (10:47→17:41)
[2020-02-18] MEDS: CEFEPIME 1 GM/D5W RTU 1 GM/50 ML RTUPB IV SCH ×2 (10:48→21:45)
--- NOTE | 2020-02-18 11:03 | RADIOLOGY REPORT (SQ) ---
EXAM DESCRIPTION: CT RT LOWER EXTREMITY WITHOUT IMAGES COMPLETED DATE/TIME: 02/18/2020 9:35 am REASON FOR STUDY: right leg cellulitis concerning for Nec fasc COMPARISON: None. TECHNIQUE: CT scan of the right lower extremity performed without intravenous or oral contrast. Shelia ges reviewed with soft tissue and bone windows. Reconstructed coronal and sagittal MPR images review ed. All images stored on PACS. All CT scanners at this facility use dose modulation, iterative reconstruction, and/or weight based d osing when appropriate to reduce radiation dose to as low as reasonably achievable (ALARA). [facility]: Dose Right [facility]: CareDose [facility]: Dose Right [facility]: Teradose 4D [facility]: [employer] RADIATION DOSE: CT Rad equipment meets quality standard of care and radiation dose reduction techniq ues were employed. CTDIvol: 4.7 mGy. DLP: 274 mGy-cm. mGy. LIMITATIONS: None. FINDINGS: BONES: There is moderate osteoarthritis at the tibiotalar joint. Normal ankle mortise ali gnment. No fracture, lytic or blastic bone lesion. Mild osteoarthritis at the midfoot. SOFT TISSUES: Diffuse subcutaneous edema at the ankle and dorsal foot. No subcutaneous gas or focal abscess. Patchy areas of skin thickening at the ankle, dorsal foot, and calf. No deep fluid collect ion or abnormality of the muscles. OTHER: No other significant finding. IMPRESSION: 1. Diffuse subcutaneous edema at the ankle and dorsal foot. No subcutaneous gas or focal abscess. 2. 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 No acute fracture. TECHNICAL DOCUMENTATION: JOB ID: [id number] Quality ID # [id number]: Final reports with documentation of one or more dose reduction techniques (e.g., Au tomated exposure control, adjustment of the mA and/or kV according to patient size, use of iterative reconstruction technique) 2010 [employer]- All Rights Reserved Reading location - IP/workstation name: [id number]
[2020-02-18] MEDS: DEXTROSE 5%-LACTATED RINGERS 1,000 ML IV PRN (12:23)
[2020-02-18] MEDS: CLINDAMYCIN 600 MG/D5W RTU 600 MG/50 ML RTUPB IV SCH ×2 (14:37→21:44)
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
[2020-02-18] MEDS: LISINOPRIL 10 MG TABLET PO SCH (21:45)
[2020-02-19] MEDS: DEXTROSE 5%-LACTATED RINGERS 1,000 ML IV PRN ×2 (03:01→18:42)
[2020-02-19] MEDS: CLINDAMYCIN 600 MG/D5W RTU 600 MG/50 ML RTUPB IV SCH ×3 (05:08→21:35)
[2020-02-19] MEDS: VANCOMYCIN HCL 1,000 MG in DEXTROSE 5%-WATER 250 ML IV SCH ×2 (05:08→18:41)
[2020-02-19 05:28] LABS: ABSOLUTE EOSINOPHILS # (AUTO) 0.1 10^3/uL (0.0-0.6); ABSOLUTE NEUT (AUTO) 4.8 10^3/uL (1.7-8.2); BASOPHILS % (AUTO) 0.6 % (0-2); EOSINOPHILS % (AUTO) 1.3 % (0-6); HEMATOCRIT 36.6 % (36.0-47.0); HEMOGLOBIN 12.4 g/dL (12.0-15.5); LYMPHOCYTES % (AUTO) 24.9 % (13-45); MEAN CORPUSCULAR HEMOGLOBIN 28.1 pg (27.0-33.4); MEAN CORPUSCULAR HGB CONC 33.8 g/dL (32.0-36.0); MEAN CORPUSCULAR VOLUME 83 fl (80-97); MONOCYTES % (AUTO) 12.9 % (3-13); PLATELET COUNT 243 10^3/uL (150-450); RED CELL DISTRIBUTION WIDTH 15.5 % (11.5-14.0); SEGMENTED NEUTROPHILS % (AUTO) 60.3 % (42-78); TOTAL CELLS COUNTED % (AUTO) 100 %; WHITE BLOOD COUNT 7.9 10^3/uL (4.0-10.5)
[2020-02-19 05:42] LABS: ALBUMIN 2.8 g/dL (3.5-5.0); ALKALINE PHOSPHATASE 53 U/L (38-126); ANION GAP 5 (5-19); ASPARTATE AMINO TRANSFERASE 144 U/L (14-36); BILIRUBIN,DIRECT 0.2 mg/dL (0.0-0.4); BILIRUBIN,TOTAL 0.7 mg/dL (0.2-1.3); BLOOD UREA NITROGEN 15 mg/dL (7-20); CALCIUM 8.4 mg/dL (8.4-10.2); CARBON DIOXIDE 25 mmol/L (22-30); CHLORIDE 104 mmol/L (98-107); GLUCOSE 119 mg/dL (75-110); POTASSIUM 4.1 mmol/L (3.6-5.0); TOTAL PROTEIN 5.2 g/dL (6.3-8.2)
[2020-02-19] MEDS: POLYETHYLENE GLYCOL 3350 POWDER 17 GM/1 PACKET PO PRN (09:29)
[2020-02-19] MEDS: CEFEPIME 1 GM/D5W RTU 1 GM/50 ML RTUPB IV SCH ×2 (09:29→21:27)
[2020-02-19] MEDS: FERROUS SULFATE 325 MG TABLET PO SCH (09:30)
[2020-02-19] MEDS: OXYBUTYNIN CHLORIDE 5 MG TABLET PO SCH ×3 (09:30→18:41)
[2020-02-19] MEDS: LEVOTHYROXINE SODIUM 0.088 MG TABLET PO SCH (09:30)
[2020-02-19] MEDS: MULTIVITAMIN TABLET PO SCH (09:30)
[2020-02-19] MEDS: PREDNISONE 10 MG TABLET PO SCH (09:30)
[2020-02-19] MEDS: BACLOFEN 10 MG TABLET PO SCH ×3 (09:30→18:41)
[2020-02-19] MEDS: CALCIUM CARBONATE 600 MG TABLET PO SCH (09:30)
[2020-02-19] MEDS: ASPIRIN 81 MG TABLET, CHEWABLE PO SCH (09:30)
[2020-02-19] MEDS: APIXABAN 5 MG TABLET PO SCH ×2 (10:11→17:56)
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
[2020-02-19 18:51] LABS: VANCOMYCIN,TROUGH 13.4 ug/mL (5.0-20.0)
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
[2020-02-19] MEDS: LISINOPRIL 10 MG TABLET PO SCH (21:35)
[2020-02-20] MEDS: CLINDAMYCIN 600 MG/D5W RTU 600 MG/50 ML RTUPB IV SCH ×3 (05:20→21:51)
[2020-02-20] MEDS: VANCOMYCIN HCL 1,000 MG in DEXTROSE 5%-WATER 250 ML IV SCH ×2 (05:20→17:40)
[2020-02-20 06:26] LABS: ABSOLUTE BASOPHILS # (AUTO) 0.1 10^3/uL (0.0-0.2); ABSOLUTE EOSINOPHILS # (AUTO) 0.1 10^3/uL (0.0-0.6); ABSOLUTE LYMPHOCYTES (AUTO) 1.8 10^3/uL (0.5-4.7); ABSOLUTE MONOCYTES (AUTO) 0.8 10^3/uL (0.1-1.4); ABSOLUTE NEUT (AUTO) 4.4 10^3/uL (1.7-8.2); BASOPHILS % (AUTO) 0.7 % (0-2); EOSINOPHILS % (AUTO) 1.2 % (0-6); HEMATOCRIT 33.2 % (36.0-47.0); HEMOGLOBIN 11.4 g/dL (12.0-15.5); LYMPHOCYTES % (AUTO) 25.3 % (13-45); MEAN CORPUSCULAR HEMOGLOBIN 28.4 pg (27.0-33.4); MEAN CORPUSCULAR HGB CONC 34.4 g/dL (32.0-36.0); MEAN CORPUSCULAR VOLUME 83 fl (80-97); MONOCYTES % (AUTO) 11.8 % (3-13); PLATELET COUNT 245 10^3/uL (150-450); RED BLOOD COUNT 4.02 10^6/uL (3.72-5.28); RED CELL DISTRIBUTION WIDTH 15.3 % (11.5-14.0); TOTAL CELLS COUNTED % (AUTO) 100 %; WHITE BLOOD COUNT 7.2 10^3/uL (4.0-10.5)
[2020-02-20 06:55] LABS: ALBUMIN 2.7 g/dL (3.5-5.0); ALKALINE PHOSPHATASE 49 U/L (38-126); ANION GAP 5 (5-19); ASPARTATE AMINO TRANSFERASE 108 U/L (14-36); BILIRUBIN,DIRECT 0.2 mg/dL (0.0-0.4); BILIRUBIN,TOTAL 0.5 mg/dL (0.2-1.3); BLOOD UREA NITROGEN 14 mg/dL (7-20); CALCIUM 8.1 mg/dL (8.4-10.2); CARBON DIOXIDE 26 mmol/L (22-30); CHLORIDE 103 mmol/L (98-107); GLUCOSE 96 mg/dL (75-110); TOTAL PROTEIN 5.2 g/dL (6.3-8.2)
--- NOTE | 2020-02-20 09:55 | PDOC PROGRESS REPORT ---
Subjective Progress Note for:: 02/20/20 Reason For Visit: CELLULITIS OF RIGHTS LOWER EXTREMITY Physical Exam Vital Signs: Temp Pulse Resp BP Pulse Ox 99.0 F 98 12 100/48 L 93 02/20/20 08:08 02/20/20 08:08 02/20/20 08:08 02/20/20 08:08 02/20/20 08:08 Intake & Output 02/19/20 02/20/20 02/21/20 06:59 06:59 06:59 Intake Total 2250 2755 250 Output Total 1950 2475 Balance 300 280 250 Weight 84.3 kg 84.6 kg General appearance: PRESENT: no acute distress Head exam: PRESENT: normocephalic Eye exam: PRESENT: EOMI Mouth exam: PRESENT: moist Neck exam: PRESENT: full ROM Respiratory exam: PRESENT: clear to auscultation azalea Cardiovascular exam: PRESENT: RRR Pulses: PRESENT: normal radial pulses, normal femoral pulses Breast: PRESENT: Normal GI/Abdominal exam: PRESENT: soft Rectal exam: PRESENT: deferred Extremities exam: PRESENT: other - rt leg improved decreased swelling bullae have beed debrided foot warm dressed with xeroform Neurological exam: PRESENT: alert, awake, oriented to person, oriented to place Psychiatric exam: PRESENT: appropriate affect Skin exam: PRESENT: dry Results Laboratory Results: 02/20/20 05:08 02/20/20 05:08 02/20/20 02/20/20 05:08 05:08 WBC 7.2 RBC 4.02 Hgb 11.4 L Hct 33.2 L MCV 83 MCH 28.4 MCHC 34.4 RDW 15.3 H Plt Count 245 Seg Neutrophils % 61.0 Sodium 134.1 L Potassium 4.0 Chloride 103 Carbon Dioxide 26 Anion Gap 5 BUN 14 Creatinine 0.53 Est GFR ( Amer) > 60 Glucose 96 Calcium 8.1 L Total Bilirubin 0.5 AST 108 H Alkaline Phosphatase 49 Total Protein 5.2 L Albumin 2.7 L Impressions: Ankle X-Ray 02/17/20 11:07 IMPRESSION: Soft tissue swelling. Marked osteopenia. No acute fracture or de structive bone lesion. Foot X-Ray 02/17/20 11:07 IMPRESSION: Soft tissue swelling. Marked osteopenia. No acute fracture or destructive bone lesion. Venous Doppler Study 02/17/20 11:07 IMPRESSION: NO EVIDENCE DVT OR SVT IN THE RIGHT LEG. Lower Extremity CT 02/18/20 00:00 IMPRESSION: 1. Diffuse subcutaneous edema at the ankle and dorsal foot. No subcutaneous gas or focal abscess. 2. 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 No acute fracture. Assessment & Plan - Time Anticipated Discharge Disposition: Home, Self Care Anticipated Discharge Timeframe: within 72 hours - Plan Summary Plan Summary: Epidermallysis of right lower extremity Status post a Profore wrap. CT scan yesterday did not show evidence of osteomyelitis but did show soft tissue swelling. The bullae have been debrided from the right lower extremity from the knee down to the foot there is a large amount of skin loss the leg is wrapped with Xeroform gauze will continue dry dressings over the Xeroform gauze. In addition to that patient has an initial decubitus I on the left ischium that was examined today the packing was removed and the nurse was instructed to continue wet-to-dry dressings. There is no evidence of a sending infection or drainage of purulence.
[2020-02-20] MEDS: DEXTROSE 5%-LACTATED RINGERS 1,000 ML IV PRN ×2 (11:28→21:51)
[2020-02-20] MEDS: CEFEPIME 1 GM/D5W RTU 1 GM/50 ML RTUPB IV SCH ×2 (11:29→21:51)
[2020-02-20] MEDS: ASPIRIN 81 MG TABLET, CHEWABLE PO SCH (11:30)
[2020-02-20] MEDS: BACLOFEN 10 MG TABLET PO SCH ×3 (11:30→17:39)
[2020-02-20] MEDS: LEVOTHYROXINE SODIUM 0.088 MG TABLET PO SCH (11:30)
[2020-02-20] MEDS: FERROUS SULFATE 325 MG TABLET PO SCH (11:31)
[2020-02-20] MEDS: MULTIVITAMIN TABLET PO SCH (11:31)
[2020-02-20] MEDS: CALCIUM CARBONATE 600 MG TABLET PO SCH (11:31)
[2020-02-20] MEDS: OXYBUTYNIN CHLORIDE 5 MG TABLET PO SCH ×3 (11:31→17:39)
[2020-02-20] MEDS: APIXABAN 5 MG TABLET PO SCH ×2 (11:31→17:40)
[2020-02-20] MEDS: PREDNISONE 10 MG TABLET PO SCH (11:31)
[2020-02-20] MEDS: POLYETHYLENE GLYCOL 3350 POWDER 17 GM/1 PACKET PO PRN (12:05)
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
[2020-02-20] MEDS: LISINOPRIL 10 MG TABLET PO SCH (21:51)
[2020-02-21 05:29] LABS: ALBUMIN 2.9 g/dL (3.5-5.0); ALKALINE PHOSPHATASE 50 U/L (38-126); ASPARTATE AMINO TRANSFERASE 86 U/L (14-36); BILIRUBIN,DIRECT 0.3 mg/dL (0.0-0.4); BILIRUBIN,TOTAL 0.6 mg/dL (0.2-1.3); BLOOD UREA NITROGEN 16 mg/dL (7-20); CALCIUM 8.2 mg/dL (8.4-10.2); CARBON DIOXIDE 29 mmol/L (22-30); CHLORIDE 101 mmol/L (98-107); GLUCOSE 88 mg/dL (75-110); POTASSIUM 3.9 mmol/L (3.6-5.0); TOTAL PROTEIN 5.6 g/dL (6.3-8.2)
[2020-02-21 05:37] LABS: ANION GAP 4 (5-19)
[2020-02-21] MEDS: VANCOMYCIN HCL 1,000 MG in DEXTROSE 5%-WATER 250 ML IV SCH ×2 (05:51→17:35)
[2020-02-21] MEDS: CLINDAMYCIN 600 MG/D5W RTU 600 MG/50 ML RTUPB IV SCH ×3 (05:51→22:10)
[2020-02-21] MEDS: DEXTROSE 5%-LACTATED RINGERS 1,000 ML IV PRN (05:52)
[2020-02-21] MEDS: APIXABAN 5 MG TABLET PO SCH ×2 (10:39→17:35)
[2020-02-21] MEDS: BACLOFEN 10 MG TABLET PO SCH ×3 (10:39→17:35)
[2020-02-21] MEDS: CALCIUM CARBONATE 600 MG TABLET PO SCH (10:39)
[2020-02-21] MEDS: OXYBUTYNIN CHLORIDE 5 MG TABLET PO SCH ×3 (10:39→17:35)
[2020-02-21] MEDS: ASPIRIN 81 MG TABLET, CHEWABLE PO SCH (10:39)
[2020-02-21] MEDS: PREDNISONE 10 MG TABLET PO SCH (10:39)
[2020-02-21] MEDS: FERROUS SULFATE 325 MG TABLET PO SCH (10:39)
[2020-02-21] MEDS: LEVOTHYROXINE SODIUM 0.088 MG TABLET PO SCH (10:39)
[2020-02-21] MEDS: MULTIVITAMIN TABLET PO SCH (10:39)
[2020-02-21] MEDS: CEFEPIME 1 GM/D5W RTU 1 GM/50 ML RTUPB IV SCH ×2 (10:39→22:10)
[2020-02-21] MEDS: DOCUSATE SODIUM 100 MG CAPSULE PO SCH (14:14)
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
[2020-02-21] MEDS: LISINOPRIL 10 MG TABLET PO SCH (22:11)
[2020-02-22] MEDS: DEXTROSE 5%-LACTATED RINGERS 1,000 ML IV PRN ×2 (03:30→22:08)
[2020-02-22 04:42] LABS: ALBUMIN 2.7 g/dL (3.5-5.0); ALKALINE PHOSPHATASE 49 U/L (38-126); ANION GAP 6 (5-19); ASPARTATE AMINO TRANSFERASE 43 U/L (14-36); BILIRUBIN,DIRECT 0.2 mg/dL (0.0-0.4); BILIRUBIN,TOTAL 0.5 mg/dL (0.2-1.3); BLOOD UREA NITROGEN 20 mg/dL (7-20); CALCIUM 8.1 mg/dL (8.4-10.2); CARBON DIOXIDE 25 mmol/L (22-30); CHLORIDE 102 mmol/L (98-107); GLUCOSE 102 mg/dL (75-110); POTASSIUM 4.3 mmol/L (3.6-5.0)
[2020-02-22] MEDS: CLINDAMYCIN 600 MG/D5W RTU 600 MG/50 ML RTUPB IV SCH ×3 (05:28→22:56)
[2020-02-22] MEDS: VANCOMYCIN HCL 1,000 MG in DEXTROSE 5%-WATER 250 ML IV SCH ×2 (05:28→17:56)
[2020-02-22] MEDS: PREDNISONE 10 MG TABLET PO SCH (10:59)
[2020-02-22] MEDS: FERROUS SULFATE 325 MG TABLET PO SCH (10:59)
[2020-02-22] MEDS: LEVOTHYROXINE SODIUM 0.088 MG TABLET PO SCH (10:59)
[2020-02-22] MEDS: BACLOFEN 10 MG TABLET PO SCH ×3 (10:59→17:55)
[2020-02-22] MEDS: CALCIUM CARBONATE 600 MG TABLET PO SCH (11:00)
[2020-02-22] MEDS: OXYBUTYNIN CHLORIDE 5 MG TABLET PO SCH ×3 (11:00→17:56)
[2020-02-22] MEDS: APIXABAN 5 MG TABLET PO SCH ×2 (11:00→17:56)
[2020-02-22] MEDS: DOCUSATE SODIUM 100 MG CAPSULE PO SCH (11:00)
[2020-02-22] MEDS: MULTIVITAMIN TABLET PO SCH (11:00)
[2020-02-22] MEDS: ASPIRIN 81 MG TABLET, CHEWABLE PO SCH (11:00)
[2020-02-22] MEDS: CEFEPIME 1 GM/D5W RTU 1 GM/50 ML RTUPB IV SCH ×2 (11:01→22:04)
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
[2020-02-22] MEDS: LISINOPRIL 10 MG TABLET PO SCH (22:15)
[2020-02-23 04:58] LABS: ALBUMIN 2.7 g/dL (3.5-5.0); ALKALINE PHOSPHATASE 51 U/L (38-126); ANION GAP 5 (5-19); ASPARTATE AMINO TRANSFERASE 27 U/L (14-36); BILIRUBIN,DIRECT 0.2 mg/dL (0.0-0.4); BILIRUBIN,TOTAL 0.3 mg/dL (0.2-1.3); BLOOD UREA NITROGEN 24 mg/dL (7-20); CALCIUM 8.2 mg/dL (8.4-10.2); CARBON DIOXIDE 28 mmol/L (22-30); CHLORIDE 102 mmol/L (98-107); GLUCOSE 102 mg/dL (75-110); POTASSIUM 4.5 mmol/L (3.6-5.0); TOTAL PROTEIN 5.1 g/dL (6.3-8.2)
[2020-02-23] MEDS: CLINDAMYCIN 600 MG/D5W RTU 600 MG/50 ML RTUPB IV SCH ×2 (05:18→14:05)
[2020-02-23] MEDS: VANCOMYCIN HCL 1,000 MG in DEXTROSE 5%-WATER 250 ML IV SCH (06:28)
[2020-02-23 09:03] VITALS: BP 112/50
[2020-02-23] MEDS: MULTIVITAMIN TABLET PO SCH (09:57)
[2020-02-23] MEDS: LEVOTHYROXINE SODIUM 0.088 MG TABLET PO SCH (09:57)
[2020-02-23] MEDS: APIXABAN 5 MG TABLET PO SCH (09:57)
[2020-02-23] MEDS: CALCIUM CARBONATE 600 MG TABLET PO SCH (09:57)
[2020-02-23] MEDS: PREDNISONE 10 MG TABLET PO SCH (09:57)
[2020-02-23] MEDS: FERROUS SULFATE 325 MG TABLET PO SCH (09:58)
[2020-02-23] MEDS: BACLOFEN 10 MG TABLET PO SCH ×2 (09:58→14:00)
[2020-02-23] MEDS: ASPIRIN 81 MG TABLET, CHEWABLE PO SCH (09:58)
[2020-02-23] MEDS: CEFEPIME 1 GM/D5W RTU 1 GM/50 ML RTUPB IV SCH (09:58)
[2020-02-23] MEDS: OXYBUTYNIN CHLORIDE 5 MG TABLET PO SCH ×2 (09:58→14:00)
[2020-02-23] MEDS: DOCUSATE SODIUM 100 MG CAPSULE PO SCH (10:06)
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
== END 2020-02-23 16:37 | disposition home health service (06) | DRG 603 ==
LOC: ER 10:25 → EH 15:06 → 4W 17:00 → 4N 02-18 15:07
PROVIDERS: ADMIT Internal Medicine; ATTEND Internal Medicine
PROC: 0JDN3ZZ Extraction of Right Lower Leg Subcutaneous Tissue and Fascia, Percutaneous Approach (ICD-10-PCS; principal; 2020-02-19)
DX: L03.115 Cellulitis of right lower limb (principal); G82.20 Paraplegia, unspecified; L97.429 Non-pressure chronic ulcer of left heel and midfoot with unspecified severity; E03.9 Hypothyroidism, unspecified; D64.9 Anemia, unspecified; I10 Essential (primary) hypertension; L89.109 Pressure ulcer of unspecified part of back, unspecified stage; M85.871 Other specified disorders of bone density and structure, right ankle and foot; E11.621 Type 2 diabetes mellitus with foot ulcer; Z79.01 Long term (current) use of anticoagulants; Z79.82 Long term (current) use of aspirin; Z79.890 Hormone replacement therapy; Z79.52 Long term (current) use of systemic steroids; Z86.711 Personal history of pulmonary embolism; Z99.3 Dependence on wheelchair; Z83.3 Family history of diabetes mellitus; Z88.3 Allergy status to other anti-infective agents
CPT/HCPCS: 36415; 80053; 80202; 83605; 85025; 87040; 93971; 99285; J0692; J3370; J3490; J7030; J7060; J7121; J7512; S0119

== ENCOUNTER → 2020-03-17 | Outpatient (CLI) | payer MEDICARE, OTHER ==
--- NOTE | 2020-03-17 15:15 | RADIOLOGY REPORT (SQ) ---
EXAM DESCRIPTION: ARTERIAL LOWER EXTREM BILAT; PHYSIO ARTERIAL LTD IMAGES COMPLETED DATE/TIME: 03/17/2020 3:05 pm REASON FOR STUDY: RT ANKLE ULCER L08.89 OTH LOCAL INFECTIONS OF THE SKIN AND SUBCUTANEOUS TIS L97.3 12 NON-PRS CHRONIC ULCER OF RIGHT ANKLE W FAT LAYER EXP L97.402 NON-PRS CHR ULCER OF UNSP HEEL AND MIDFOOT W FAT LAY COMPARISON: None. TECHNIQUE: Dynamic and static minor scale and color images acquired of the lower extremity arteries. Additional selected spectral images recorded. ABIs recorded. LIMITATIONS: None. FINDINGS: RIGHT LEG: ABIS: Normal, over 1.0. INFLOW ARTERIES: Normal, no obstruction evident. FEMORAL ARTERIES:Multiphasic waveforms. Normal, no velocity elevation to suggest focal stenosis. Norm al color Doppler evaluation. No aneurysm. POPLITEAL ARTERY:Multiphasic waveforms. Normal, no velocity elevation to suggest focal stenosis. Norm al color Doppler evaluation. No aneurysm. PATENT TIBIOPERONEAL TRUNK AND 3 VESSEL RUNOFF: Visualized infrapopliteal vessels are unremarkable. TBI: Not performed. OTHER: No other significant finding. LEFT LEG: ABIS: Normal, over 1.0. INFLOW ARTERIES: Normal, no obstruction evident. FEMORAL ARTERIES:Multiphasic waveforms. Normal, no velocity elevation to suggest focal stenosis. Norm al color Doppler evaluation. No aneurysm. POPLITEAL ARTERY:Multiphasic waveforms. Normal, no velocity elevation to suggest focal stenosis. Norm al color Doppler evaluation. No aneurysm. PATENT TIBIOPERONEAL TRUNK AND 3 VESSEL RUNOFF: Visualized infrapopliteal vessels are unremarkable. TBI: Not performed. OTHER: No other significant finding. IMPRESSION: Multiphasic waveforms throughout. No focal high-grade stenosis. COMMENT: [facility] NORMAL: Greater than 1.0 MINIMAL DISEASE: 0.9 to 1.0 CLAUDICATION: 0.5 to 0.9 SEVERE ARTERIAL DISEASE: Less than 0.5 [facility] NORMAL: Greater than 1.0 (1.2 If Heavy Calcifications) NORMAL TO MILD ISCHEMIA: 0.8 to 1.0 MODERATE ISCHEMIA: 0.4 to 0.8 SEVERE ISCHEMIA: Less than 0.4 TECHNICAL DOCUMENTATION: JOB ID: [id number] 2010 [employer]- All Rights Reserved Reading location - IP/workstation name: [email or web address]
--- NOTE | 2020-03-17 15:15 | RADIOLOGY REPORT (SQ) ---
EXAM DESCRIPTION: ARTERIAL LOWER EXTREM BILAT; PHYSIO ARTERIAL LTD IMAGES COMPLETED DATE/TIME: 03/17/2020 3:05 pm REASON FOR STUDY: RT ANKLE ULCER L08.89 OTH LOCAL INFECTIONS OF THE SKIN AND SUBCUTANEOUS TIS L97.3 12 NON-PRS CHRONIC ULCER OF RIGHT ANKLE W FAT LAYER EXP L97.402 NON-PRS CHR ULCER OF UNSP HEEL AND MIDFOOT W FAT LAY COMPARISON: None. TECHNIQUE: Dynamic and static minor scale and color images acquired of the lower extremity arteries. Additional selected spectral images recorded. ABIs recorded. LIMITATIONS: None. FINDINGS: RIGHT LEG: ABIS: Normal, over 1.0. INFLOW ARTERIES: Normal, no obstruction evident. FEMORAL ARTERIES:Multiphasic waveforms. Normal, no velocity elevation to suggest focal stenosis. Norm al color Doppler evaluation. No aneurysm. POPLITEAL ARTERY:Multiphasic waveforms. Normal, no velocity elevation to suggest focal stenosis. Norm al color Doppler evaluation. No aneurysm. PATENT TIBIOPERONEAL TRUNK AND 3 VESSEL RUNOFF: Visualized infrapopliteal vessels are unremarkable. TBI: Not performed. OTHER: No other significant finding. LEFT LEG: ABIS: Normal, over 1.0. INFLOW ARTERIES: Normal, no obstruction evident. FEMORAL ARTERIES:Multiphasic waveforms. Normal, no velocity elevation to suggest focal stenosis. Norm al color Doppler evaluation. No aneurysm. POPLITEAL ARTERY:Multiphasic waveforms. Normal, no velocity elevation to suggest focal stenosis. Norm al color Doppler evaluation. No aneurysm. PATENT TIBIOPERONEAL TRUNK AND 3 VESSEL RUNOFF: Visualized infrapopliteal vessels are unremarkable. TBI: Not performed. OTHER: No other significant finding. IMPRESSION: Multiphasic waveforms throughout. No focal high-grade stenosis. COMMENT: [facility] NORMAL: Greater than 1.0 MINIMAL DISEASE: 0.9 to 1.0 CLAUDICATION: 0.5 to 0.9 SEVERE ARTERIAL DISEASE: Less than 0.5 [facility] NORMAL: Greater than 1.0 (1.2 If Heavy Calcifications) NORMAL TO MILD ISCHEMIA: 0.8 to 1.0 MODERATE ISCHEMIA: 0.4 to 0.8 SEVERE ISCHEMIA: Less than 0.4 TECHNICAL DOCUMENTATION: JOB ID: [id number] 2010 [employer]- All Rights Reserved Reading location - IP/workstation name: [email or web address]
--- NOTE | 2020-03-17 15:20 | RADIOLOGY REPORT (SQ) ---
EXAM DESCRIPTION: VENOUS REFLUX IMAGES COMPLETED DATE/TIME: 03/17/2020 3:05 pm REASON FOR STUDY: RT ANKLE ULCER L08.89 OTH LOCAL INFECTIONS OF THE SKIN AND SUBCUTANEOUS TIS L97.3 12 NON-PRS CHRONIC ULCER OF RIGHT ANKLE W FAT LAYER EXP L97.402 NON-PRS CHR ULCER OF UNSP HEEL AND MIDFOOT W FAT LAY COMPARISON: None. TECHNIQUE: Multiple real-time grayscale sonographic images were obtained for evaluation of the right and left lower extremity. Doppler and duplex evaluation of the venous structures was performed. LIMITATIONS: None. FINDINGS: The right and left common femoral, superficial femoral, popliteal and infrapopliteal veins are patent with normal response to compression and augmentation maneuvers. There is mild deep venou s insufficiency in the left mid and distal femoral vein. Right greater saphenous vein: Dilated right greater saphenous vein. There is just under 2 seconds of reflux in the right greater saphenous vein just below the knee. Right small saphenous vein: Normal in caliber. No reflux. Left greater saphenous vein: Normal in caliber. No reflux. Left small saphenous vein: Normal in caliber. No reflux. OTHER: No solid or cystic masses or other abnormal findings. IMPRESSION: 1. No evidence of DVT or SVT. 2. Mild deep venous insufficiency involving the left mid and distal femoral vein. 3. Right greater saphenous vein insufficiency just under 2 seconds. Vessel diameter ranges from 4.1 mm up to 8.0 mm. TECHNICAL DOCUMENTATION: JOB ID: [id number] 2010 [employer]- All Rights Reserved Reading location - IP/workstation name: [email or web address]
== END ==
LOC: RAD 08:39
PROVIDERS: ATTEND Nurse Practitioner Family
DX: L97.312 Non-pressure chronic ulcer of right ankle with fat layer exposed (principal); L97.402 Non-pressure chronic ulcer of unspecified heel and midfoot with fat layer exposed; L08.89 Other specified local infections of the skin and subcutaneous tissue
CPT/HCPCS: 93922; 93925; 93970

== ENCOUNTER 2020-04-02 19:15 | Inpatient (IN) | payer MEDICARE, OTHER ==
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
[2020-04-02 20:36] LABS: ABSOLUTE BASOPHILS # (AUTO) 0.1 10^3/uL (0.0-0.2); ABSOLUTE LYMPHOCYTES (AUTO) 1.2 10^3/uL (0.5-4.7); ABSOLUTE MONOCYTES (AUTO) 0.4 10^3/uL (0.1-1.4); ABSOLUTE NEUT (AUTO) 6.8 10^3/uL (1.7-8.2); BASOPHILS % (AUTO) 0.7 % (0-2); EOSINOPHILS % (AUTO) 0.3 % (0-6); HEMATOCRIT 43.4 % (36.0-47.0); HEMOGLOBIN 14.5 g/dL (12.0-15.5); LYMPHOCYTES % (AUTO) 14.5 % (13-45); MEAN CORPUSCULAR HEMOGLOBIN 28.5 pg (27.0-33.4); MEAN CORPUSCULAR HGB CONC 33.5 g/dL (32.0-36.0); MEAN CORPUSCULAR VOLUME 85 fl (80-97); MONOCYTES % (AUTO) 4.9 % (3-13); PLATELET COUNT 299 10^3/uL (150-450); RED BLOOD COUNT 5.11 10^6/uL (3.72-5.28); RED CELL DISTRIBUTION WIDTH 15.6 % (11.5-14.0); SEGMENTED NEUTROPHILS % (AUTO) 79.6 % (42-78); TOTAL CELLS COUNTED % (AUTO) 100 %; WHITE BLOOD COUNT 8.5 10^3/uL (4.0-10.5)
[2020-04-02 20:49] LABS: ALBUMIN 4.3 g/dL (3.5-5.0); ALKALINE PHOSPHATASE 92 U/L (38-126); ANION GAP 12 (5-19); ASPARTATE AMINO TRANSFERASE 40 U/L (14-36); BILIRUBIN,DIRECT 0.1 mg/dL (0.0-0.4); BILIRUBIN,TOTAL 0.6 mg/dL (0.2-1.3); BLOOD UREA NITROGEN 31 mg/dL (7-20); CALCIUM 10.3 mg/dL (8.4-10.2); CARBON DIOXIDE 22 mmol/L (22-30); CHLORIDE 100 mmol/L (98-107); GLUCOSE 122 mg/dL (75-110); POTASSIUM 4.6 mmol/L (3.6-5.0); TOTAL PROTEIN 7.4 g/dL (6.3-8.2)
--- NOTE | 2020-04-02 22:06 | RADIOLOGY REPORT (SQ) ---
EXAM DESCRIPTION: Bilateral lower extremity venous Doppler CLINICAL HISTORY: bilateral lower extremities COMPARISON: None Available TECHNIQUE: Duplex images of the common femoral, greater saphenous, superficial femoral, popliteal, peroneal, anterior and posterior tibial veins of both lower extremities were submitted FINDINGS: There is an echogenic bandlike opacity at the left common femoral vein which could be secondary to chronic DVT changes. All of the above-mentioned venous structures demonstrate normal spontaneous flow with respiratory phasicity and were compressible. IMPRESSION: No sonographic evidence of acute DVT within the lower extremities. Questionable chronic DVT changes within the left common femoral vein.
--- NOTE | 2020-04-02 22:23 | RADIOLOGY REPORT (SQ) ---
EXAM DESCRIPTION: CT angiogram of the chest CLINICAL HISTORY: 64 years Female; SOB, hx of PE TECHNIQUE: CT angiogram of the chest using intravenous contrast.. MIP reconstructions were performed. All CT scans at this facility use dose modulation, iterative reconstruction, and/or weight based dosing when appropriate to reduce radiation dose to as low as reasonably achievable. COMPARISON: CT pulmonary angiogram of the chest April 23, 2019 FINDINGS: Chest: Vascular: On the previous examination there was multiple large volume pulmonary artery embolization. Much of this has resolved. However, On today's exam there is some residual thrombus present in distal segmental left lower lobe vessels as well as in the the main segment of the right lower lobe pulmonary artery and scattered right pulmonary artery branches. This appears to be adherent to the wall suggesting old thrombus. It would be difficult to assess for acute pulmonary embolism because of the volume of residual thrombus from the previous exam which has not resolved. Changes of right heart strain have resolved. Contrast does not reflux into the hepatic veins and the right ventricle is no longer dilated. Lungs: There is improvement in lung volumes. The previous examination there was patchy opacification scattered throughout the lung. There is some residual scarring in these areas but the vast majority of the previously seen infiltrate has resolved. No pneumothorax. No pleural effusion. Mediastinum: Heart size is within normal limits. No pericardial abnormality. No mediastinal or hilar lymphadenopathy. Bones and soft tissues: Degenerative changes present in the shoulder joints bilaterally. There is postsurgical change in the mid to lower thoracic spine. No acute process. Soft tissues of the chest wall are unremarkable. Upper Abdomen: Visualized portion of the upper abdomen is unremarkable. IMPRESSION: 1. Resolution of the majority of the previously seen pulmonary embolism. There is some residual chronic thrombus seen bilaterally. No obvious acute PE. 2. Interval improvement of the previously seen multifocal infiltrate though there is some residual opacification in the lung parenchyma bilaterally.
--- NOTE | 2020-04-02 22:31 | EKG REPORT ---
SEVERITY:- ABNORMAL ECG - SINUS TACHYCARDIA LEFT ANTERIOR FASCICULAR BLOCK : Confirmed by: Valentino Portillo MD 02-Apr-2020 22:30:23
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
[2020-04-03 00:05] LABS: A TYPE INFLUENZA AG NEGATIVE (NEGATIVE); B INFLUENZA AG NEGATIVE (NEGATIVE)
[2020-04-03] MEDS ORDERED: CEFTRIAXONE 1 GM/D5W RTU 1 GM/50 ML RTUPB IV ONE (00:12)
[2020-04-03] MEDS ORDERED: NORMAL SALINE 1000 ML 1,000 ML IV ONE (00:14)
[2020-04-03] MEDS ORDERED: AZITHROMYCIN INJ 500 MG VIAL IV ONE (00:14)
[2020-04-03] MEDS ORDERED: MAGNESIUM HYDROXIDE SUSP 30 ML UDCUP PO PRN (04:28)
[2020-04-03] MEDS ORDERED: MAG HYDROX/AL HYDROX/SIMETH SUSP 30 ML UDCUP PO PRN (04:28)
[2020-04-03] MEDS ORDERED: ONDANSETRON HCL INJ/PF 4 MG/2 ML SDV IV PRN (04:28)
[2020-04-03 05:23] LABS: CHOLESTEROL 191.91 mg/dL (0-200); TRIGLYCERIDES 115 mg/dL (<150)
[2020-04-03 05:34] LABS: DIRECT LDL 112 mg/dL (<100)
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
[2020-04-03] MEDS ORDERED: LEVALBUTEROL HCL NEB 0.63 MG/3 ML AMPUL NEB PRN (06:27)
[2020-04-03] MEDS: HEPARIN SOD (PORCINE) 5,000 UNIT/ML 1 ML VIAL SUBCUT SCH ×3 (06:30→21:19)
[2020-04-03] MEDS: PANTOPRAZOLE SODIUM 40 MG TABLET.DR PO SCH (06:30)
[2020-04-03] MEDS ORDERED: LEVOTHYROXINE SODIUM 0.088 MG TABLET PO SCH ×2 (07:00→10:00)
[2020-04-03 08:47] LABS: CREATINE KINASE MB 1.56 ng/mL (<4.55); TROPONIN I 0.072 ng/mL
--- NOTE | 2020-04-03 09:09 | RADIOLOGY REPORT (SQ) ---
EXAM DESCRIPTION: CHEST SINGLE VIEW IMAGES COMPLETED DATE/TIME: 04/03/2020 8:51 am REASON FOR STUDY: dyspnea COMPARISON: Chest radiograph 04/23/2019 NUMBER OF VIEWS: One view. TECHNIQUE: Single frontal radiographic view of the chest acquired. LIMITATIONS: None. FINDINGS: LUNGS AND PLEURA: No opacities, masses or pneumothorax. No pleural effusion. MEDIASTINUM AND HILAR STRUCTURES: No masses. Contour normal. HEART AND VASCULAR STRUCTURES: Heart normal in size. Normal vasculature. BONES: No acute findings. HARDWARE: Posterior fusion rods in the thoracolumbar spine. OTHER: No other significant finding. IMPRESSION: NO SIGNIFICANT RADIOGRAPHIC FINDING IN THE CHEST. TECHNICAL DOCUMENTATION: JOB ID: [id number] 2010 [employer]- All Rights Reserved Reading location - IP/workstation name: [email or web address]
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
[2020-04-03] MEDS: ZINC SULFATE 220 MG CAPSULE PO SCH (09:35)
[2020-04-03] MEDS: BACLOFEN 10 MG TABLET PO SCH ×3 (09:35→17:57)
[2020-04-03] MEDS: POLYETHYLENE GLYCOL 3350 POWDER 17 GM/1 PACKET PO SCH (09:35)
[2020-04-03] MEDS: PREDNISONE 1 MG TABLET PO SCH (09:36)
[2020-04-03] MEDS: ASPIRIN 81 MG TABLET, CHEWABLE PO SCH (09:36)
[2020-04-03] MEDS ORDERED: DOCUSATE SODIUM 100 MG CAPSULE PO SCH (10:00)
[2020-04-03 14:25] LABS: CREATINE KINASE MB 1.39 ng/mL (<4.55); TROPONIN I 0.062 ng/mL
--- NOTE | 2020-04-03 17:36 | PDOC PROGRESS REPORT ---
Subjective Progress Note for:: 04/03/20 Subjective:: DINA HAHN is a 64 year old female who presented to the emergency room with a 5-day history of dyspnea. She admits moderate dyspnea developing 5 days ago and being constantly present since onset. Her dyspnea is worsened by exertion. Her dyspnea has been accompanied by an intermittent nonproductive cough and associated with fatigue. She recently discontinued use of her chronic Eliquis therapy (history of pulmonary embolism) for a planned surgery on her left leg. She denies other associated or accompanying signs and symptoms. She admits prior similar symptoms with her pulmonary embolism. She denies identification of any additional aggravating or ameliorating factors for her dyspnea. In the emergency room she was found to have no evidence of DVT on ultrasound examination of the lower extremities and a CTA of the chest revealed no pulmonary emboli and in fact showed improvement of the bibasilar changes in her CTA performed more than a year ago. She was noted to have acute respiratory failure with hypoxia requiring 2 L of oxygen via nasal cannula in order to maintain her oxygen saturation reliably above 93%. She was subsequently admitte d to the hospital for further evaluation and treatment. Reason For Visit: SHORTNESS OF BREATH,HYPOXIA,PARAPLEGIA Physical Exam Vital Signs: Temp Pulse Resp BP Pulse Ox 98.8 F 98 16 135/70 H 96 04/03/20 15:30 04/03/20 15:30 04/03/20 15:30 04/03/20 15:30 04/03/20 15:30 Intake & Output 04/02/20 04/03/20 04/04/20 06:59 06:59 05:59 Intake Total 1450 480 Output Total 875 375 Balance 575 105 Weight 77.8 kg General appearance: PRESENT: no acute distress, cooperative Head exam: PRESENT: atraumatic, normocephalic Eye exam: PRESENT: EOMI, PERRLA Mouth exam: PRESENT: moist Neck exam: PRESENT: full ROM. ABSENT: JVD, meningismus Respiratory exam: PRESENT: clear to auscultation azalea, symmetrical, unlabored Cardiovascular exam: PRESENT: RRR, +S1, +S2 GI/Abdominal exam: PRESENT: normal bowel sounds, soft. ABSENT: rebound, tenderness Extremities exam: PRESENT: other - patient is paraplegic. she also has chronic wound on her right lower leg and ischial area Neurological exam: PRESENT: alert, awake, oriented to person, oriented to place, oriented to time, oriented to situation Psychiatric exam: PRESENT: normal mood Skin exam: PRESENT: normal color Results Laboratory Results: 04/02/20 20:15 04/02/20 20:15 04/02/20 04/02/20 04/02/20 20:15 20:15 20:15 WBC 8.5 RBC 5.11 Hgb 14.5 Hct 43.4 MCV 85 MCH 28.5 MCHC 33.5 RDW 15.6 H Plt Count 299 Seg Neutrophils % 79.6 H Sodium 134.4 L Potassium 4.6 Chloride 100 Carbon Dioxide 22 Anion Gap 12 BUN 31 H Creatinine 0.61 Est GFR ( Amer) > 60 Glucose 122 H Lactic Acid Calcium 10.3 H Total Bilirubin 0.6 AST 40 H Alkaline Phosphatase 92 Total Protein 7.4 Albumin 4.3 Triglycerides 115 Cholesterol 191.91 LDL Cholesterol Direct 112 H VLDL Cholesterol 23.0 HDL Cholesterol 62 TSH 04/02/20 04/02/20 20:15 23:35 WBC RBC Hgb Hct MCV MCH MCHC RDW Plt Count Seg Neutrophils % Sodium Potassium Chloride Carbon Dioxide Anion Gap BUN Creatinine Est GFR ( Amer) Glucose Lactic Acid 1.3 Calcium Total Bilirubin AST Alkaline Phosphatase Total Protein Albumin Triglycerides Cholesterol LDL Cholesterol Direct VLDL Cholesterol HDL Cholesterol TSH 2.05 04/02/20 04/02/20 04/02/20 20:15 20:15 23:35 Creatine Kinase CK-MB (CK-2) Troponin I 0.085 0.085 NT-Pro-B Natriuret Pep 4550 H 04/03/20 04/03/20 04/03/20 07:55 07:55 13:44 Creatine Kinase 47 58 CK-MB (CK-2) 1.56 Troponin I 0.072 NT-Pro-B Natriuret Pep 04/03/20 13:44 Creatine Kinase CK-MB (CK-2) 1.39 Troponin I 0.062 NT-Pro-B Natriuret Pep Impressions: Chest/Abdomen CTA 04/02/20 19:40 IMPRESSION: 1. Resolution of the majority of the previously seen pulmonary embolism. There is some residual chronic thrombus seen bilaterally. No obvious acute PE. 2. Interval improvement of the previously seen multifocal infiltrate though there is some residual opacification in the lung parenchyma bilaterally. Venous Doppler Study 04/02/20 19:40 IMPRESSION: No sonographic evidence of acute DVT within the lower extremities. Questionable chronic DVT changes within the left common femoral vein. Chest X-Ray 04/03/20 00:00 IMPRESSION: NO SIGNIFICANT RADIOGRAPHIC FINDING IN THE CHEST. Assessment and Plan - Diagnosis (1) Acute respiratory failure with hypoxia Is this a current diagnosis for this admission?: Yes Plan: - developed dyspnea on exertion that gradually started about 1 week prior. Minimal cough, no fever. - O2 sat in the ED to 89%, 93% on room air with nasal cannula - never smoker, no significant cardiac history - CXR unremarkable - CTA chest resolution of the majority of the previously seen pulmonary embolism. Some residual chronic thrombus seen bilaterally. No obvious acute PE. Interval improvement of the previously seen multifocal infiltrate. - BNP 4550 - Trop 0.085>0.072>0.062 - ddx: New onset CHF from NSTEMI or right heart failure from previous PE, or deconditioning, ILD - echo pending - will trial lasix (2) NSTEMI (non-ST elevated myocardial infarction) Is this a current diagnosis for this admission?: Yes Plan: - came in due to dyspnea on exertion - EKG Sinus rhtyhm LAFB - BNP 4550 - Trop 0.085>0.072>0.062 - trop leak maybe 2/2 new CHF - will trial lasix - awaiting echo (3) Left rotator cuff tear Is this a current diagnosis for this admission?: Yes (4) Cellulitis of right lower extremity Is this a current diagnosis for this admission?: Yes Plan: - Dr. Wilkes follows her up outpatient and was planning a procedure hence her eliquis was stopped - nursing to change her dressing - no evidence of infection (5) Chronic steroid use Is this a current diagnosis for this admission?: Yes Plan: -has been on prednisone 10 mg for years for a rotator cough tear - Ortho consulted for alternatives to prednisone for shoulder pain - She will need to be tapered off steroids very slowly as she has been on it for years. - per Dr. Temple she can follow up with him to discuss her options (6) Hypothyroidism Is this a current diagnosis for this admission?: Yes Plan: - resume synthroid (7) Paraplegia Is this a current diagnosis for this admission?: Yes Plan: - 2/2 accident several years ago - Plan Summary Summary: . - Time Time Spent with patient: 25-34 minutes Anticipated Discharge Disposition: Home with Home Health Anticipated Discharge Timeframe: to be determined
[2020-04-03] MEDS: OXYBUTYNIN CHLORIDE 5 MG TABLET PO SCH (17:57)
[2020-04-03] MEDS: FUROSEMIDE INJ/PF 40 MG/4 ML SDV IV SCH (17:57)
[2020-04-03 20:52] LABS: CREATINE KINASE MB 1.09 ng/mL (<4.55); TROPONIN I 0.061 ng/mL
[2020-04-03] MEDS: DOCUSATE SODIUM 100 MG CAPSULE PO SCH (21:18)
[2020-04-03] MEDS: LISINOPRIL 10 MG TABLET PO SCH (23:37)
[2020-04-04] MEDS: PANTOPRAZOLE SODIUM 40 MG TABLET.DR PO SCH (05:48)
[2020-04-04] MEDS: HEPARIN SOD (PORCINE) 5,000 UNIT/ML 1 ML VIAL SUBCUT SCH ×3 (05:48→21:38)
[2020-04-04] MEDS: LEVOTHYROXINE SODIUM 0.088 MG TABLET PO SCH (05:48)
[2020-04-04 08:01] LABS: HEMATOCRIT 37.7 % (36.0-47.0); HEMOGLOBIN 12.8 g/dL (12.0-15.5); MEAN CORPUSCULAR HEMOGLOBIN 28.6 pg (27.0-33.4); MEAN CORPUSCULAR VOLUME 84 fl (80-97); PLATELET COUNT 249 10^3/uL (150-450); RED BLOOD COUNT 4.49 10^6/uL (3.72-5.28); RED CELL DISTRIBUTION WIDTH 15.6 % (11.5-14.0)
[2020-04-04 08:20] LABS: ANION GAP 12 (5-19); BLOOD UREA NITROGEN 26 mg/dL (7-20); CALCIUM 8.8 mg/dL (8.4-10.2); CARBON DIOXIDE 23 mmol/L (22-30); CHLORIDE 101 mmol/L (98-107); GLUCOSE 88 mg/dL (75-110); POTASSIUM 3.9 mmol/L (3.6-5.0)
[2020-04-04] MEDS: BACLOFEN 10 MG TABLET PO SCH ×3 (09:59→17:26)
[2020-04-04] MEDS: ASPIRIN 81 MG TABLET, CHEWABLE PO SCH (09:59)
[2020-04-04] MEDS: ZINC SULFATE 220 MG CAPSULE PO SCH (10:00)
[2020-04-04] MEDS: PREDNISONE 1 MG TABLET PO SCH (10:03)
[2020-04-04] MEDS: POLYETHYLENE GLYCOL 3350 POWDER 17 GM/1 PACKET PO SCH (10:05)
[2020-04-04] MEDS: FUROSEMIDE INJ/PF 40 MG/4 ML SDV IV SCH (10:05)
[2020-04-04] MEDS: OXYBUTYNIN CHLORIDE 5 MG TABLET PO SCH ×3 (11:01→17:26)
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
[2020-04-04] MEDS: LISINOPRIL 10 MG TABLET PO SCH (21:37)
[2020-04-04] MEDS: DOCUSATE SODIUM 100 MG CAPSULE PO SCH (21:38)
[2020-04-05] MEDS: HEPARIN SOD (PORCINE) 5,000 UNIT/ML 1 ML VIAL SUBCUT SCH ×3 (05:17→22:12)
[2020-04-05] MEDS: LEVOTHYROXINE SODIUM 0.088 MG TABLET PO SCH (05:17)
[2020-04-05] MEDS: PANTOPRAZOLE SODIUM 40 MG TABLET.DR PO SCH (05:17)
[2020-04-05] MEDS: BACLOFEN 10 MG TABLET PO SCH ×3 (10:47→17:23)
[2020-04-05] MEDS: FUROSEMIDE INJ/PF 40 MG/4 ML SDV IV SCH ×2 (10:47→10:55)
[2020-04-05] MEDS: POLYETHYLENE GLYCOL 3350 POWDER 17 GM/1 PACKET PO SCH (10:47)
[2020-04-05] MEDS: ZINC SULFATE 220 MG CAPSULE PO SCH (10:47)
[2020-04-05] MEDS: ASPIRIN 81 MG TABLET, CHEWABLE PO SCH (10:47)
[2020-04-05] MEDS: OXYBUTYNIN CHLORIDE 5 MG TABLET PO SCH ×3 (10:47→17:23)
[2020-04-05] MEDS: PREDNISONE 10 MG TABLET PO SCH (10:47)
--- NOTE | 2020-04-05 11:21 | RADIOLOGY REPORT (SQ) ---
EXAM DESCRIPTION: CHEST SINGLE VIEW IMAGES COMPLETED DATE/TIME: 04/05/2020 11:10 am REASON FOR STUDY: desaturation COMPARISON: None. EXAM PARAMETERS: NUMBER OF VIEWS: One view. TECHNIQUE: Single frontal radiographic view of the chest acquired. RADIATION DOSE: NA LIMITATIONS: None. FINDINGS: LUNGS AND PLEURA: Mild lingular opacities obscuration of the cardiac apex. No pleural eff usion. No pneumothorax. MEDIASTINUM AND HILAR STRUCTURES: No masses. Contour normal. HEART AND VASCULAR STRUCTURES: Heart normal in size. Normal vasculature. BONES: No acute findings. HARDWARE: Partially visualized thoracolumbar posterior fusion hardware. OTHER: No other significant finding. IMPRESSION: Mild ill-defined lingular opacities, possibly atelectasis or infection. No significant effusion. TECHNICAL DOCUMENTATION: JOB ID: [id number] [employer]- All Rights Reserved Reading location - IP/workstation name: [email or web address]
[2020-04-05 12:32] LABS: ALBUMIN 3.6 g/dL (3.5-5.0); ALKALINE PHOSPHATASE 77 U/L (38-126); ANION GAP 10 (5-19); ASPARTATE AMINO TRANSFERASE 23 U/L (14-36); BILIRUBIN,DIRECT 0.1 mg/dL (0.0-0.4); BILIRUBIN,TOTAL 0.5 mg/dL (0.2-1.3); BLOOD UREA NITROGEN 30 mg/dL (7-20); CARBON DIOXIDE 22 mmol/L (22-30); CHLORIDE 102 mmol/L (98-107); GLUCOSE 97 mg/dL (75-110); POTASSIUM 4.4 mmol/L (3.6-5.0); TOTAL PROTEIN 6.4 g/dL (6.3-8.2)
[2020-04-05 12:34] LABS: ABSOLUTE BASOPHILS # (AUTO) 0.1 10^3/uL (0.0-0.2); ABSOLUTE EOSINOPHILS # (AUTO) 0.2 10^3/uL (0.0-0.6); ABSOLUTE MONOCYTES (AUTO) 0.5 10^3/uL (0.1-1.4); ABSOLUTE NEUT (AUTO) 4.9 10^3/uL (1.7-8.2); BASOPHILS % (AUTO) 1.3 % (0-2); EOSINOPHILS % (AUTO) 2.6 % (0-6); HEMATOCRIT 38.4 % (36.0-47.0); HEMOGLOBIN 12.9 g/dL (12.0-15.5); LYMPHOCYTES % (AUTO) 26.2 % (13-45); MEAN CORPUSCULAR HEMOGLOBIN 28.1 pg (27.0-33.4); MEAN CORPUSCULAR HGB CONC 33.6 g/dL (32.0-36.0); MEAN CORPUSCULAR VOLUME 84 fl (80-97); MONOCYTES % (AUTO) 6.6 % (3-13); PLATELET COUNT 262 10^3/uL (150-450); RED BLOOD COUNT 4.59 10^6/uL (3.72-5.28); RED CELL DISTRIBUTION WIDTH 15.6 % (11.5-14.0); SEGMENTED NEUTROPHILS % (AUTO) 63.3 % (42-78); TOTAL CELLS COUNTED % (AUTO) 100 %; WHITE BLOOD COUNT 7.8 10^3/uL (4.0-10.5)
--- NOTE | 2020-04-05 19:09 | PDOC PROGRESS REPORT ---
Subjective Progress Note for:: 04/05/20 Subjective:: DINA HAHN is a 64 year old female who presented to the emergency room with a 5-day history of dyspnea. She admits moderate dyspnea developing 5 days ago and being constantly present since onset. Her dyspnea is worsened by exertion. Her dyspnea has been accompanied by an intermittent nonproductive cough and associated with fatigue. She recently discontinued use of her chronic Eliquis therapy (history of pulmonary embolism) for a planned surgery on her left leg. She denies other associated or accompanying signs and symptoms. She admits prior similar symptoms with her pulmonary embolism. She denies identification of any additional aggravating or ameliorating factors for her dyspnea. In the emergency room she was found to have no evidence of DVT on ultrasound examination of the lower extremities and a CTA of the chest revealed no pulmonary emboli and in fact showed improvement of the bibasilar changes in her CTA performed more than a year ago. She was noted to have acute respiratory failure with hypoxia requiring 2 L of oxygen via nasal cannula in order to maintain her oxygen saturation reliably above 93%. She was subsequently admitte d to the hospital for further evaluation and treatment. D2 hospital stay. She was seen and examined at bedside. She denies feeling SOB when she's just lying down. We tried taking her off O2 but she desaturates to 88% without it so we put her back on it. Still awaiting echo result. She received 1 dose of lasix yesterday. She is currently using an incentive spirometry. D3 hospital stay. She was seen and examined at bedside. On 1L of O2 via nasal cannula. Mostly SOB with movement, echo was done today but has not been read yet. PFT ordered. She is otherwise afebrile, no cough, no wheezing. Reason For Visit: SHORTNESS OF BREATH,HYPOXIA,PARAPLEGIA Physical Exam Vital Signs: Temp Pulse Resp BP Pulse Ox 98.3 F 97 14 113/61 90 L 04/05/20 16:22 04/05/20 16:22 04/05/20 16:22 04/05/20 16:22 04/05/20 16:22 Intake & Output 04/04/20 04/05/20 04/06/20 06:59 06:59 06:59 Intake Total 598 1136 Output Total 955 1350 Balance -357 -214 Weight 82.8 kg 82.8 kg General appearance: PRESENT: no acute distress, cooperative Head exam: PRESENT: atraumatic, normocephalic Eye exam: PRESENT: EOMI, PERRLA Mouth exam: PRESENT: moist Neck exam: PRESENT: full ROM Respiratory exam: PRESENT: clear to auscultation azalea, symmetrical, unlabored Cardiovascular exam: PRESENT: RRR, +S1, +S2 Pulses: PRESENT: +2 pedal pulses bilateral GI/Abdominal exam: PRESENT: normal bowel sounds, soft. ABSENT: tenderness Extremities exam: PRESENT: other - Paraplegic. Has chronic wound on her lower right leg no signs of infection. Neurological exam: PRESENT: alert, awake, oriented to person, oriented to place, oriented to time, oriented to situation Psychiatric exam: PRESENT: normal mood Skin exam: PRESENT: normal color Results Laboratory Results: 04/05/20 11:19 04/05/20 11:19 04/05/20 04/05/20 11:19 11:19 WBC 7.8 RBC 4.59 Hgb 12.9 Hct 38.4 MCV 84 MCH 28.1 MCHC 33.6 RDW 15.6 H Plt Count 262 Seg Neutrophils % 63.3 Sodium 134.4 L Potassium 4.4 Chloride 102 Carbon Dioxide 22 Anion Gap 10 BUN 30 H Creatinine 0.65 Est GFR ( Amer) > 60 Glucose 97 Calcium 9.0 Total Bilirubin 0.5 AST 23 Alkaline Phosphatase 77 Total Protein 6.4 Albumin 3.6 04/02/20 04/02/20 04/02/20 20:15 20:15 23:35 Creatine Kinase CK-MB (CK-2) Troponin I 0.085 0.085 NT-Pro-B Natriuret Pep 4550 H 04/03/20 04/03/20 04/03/20 07:55 07:55 13:44 Creatine Kinase 47 58 CK-MB (CK-2) 1.56 Troponin I 0.072 NT-Pro-B Natriuret Pep 04/03/20 04/03/20 04/03/20 13:44 20:10 20:10 Creatine Kinase 63 CK-MB (CK-2) 1.39 1.09 Troponin I 0.062 0.061 NT-Pro-B Natriuret Pep Impressions: Chest/Abdomen CTA 04/02/20 19:40 IMPRESSION: 1. Resolution of the majority of the previously seen pulmonary embolism. There is some residual chronic thrombus seen bilaterally. No obvious acute PE. 2. Interval improvement of the previously seen multifocal infiltrate though there is some residual opacification in the lung parenchyma bilaterally. Venous Doppler Study 04/02/20 19:40 IMPRESSION: No sonographic evidence of acute DVT within the lower extremities. Questionable chronic DVT changes within the left common femoral vein. Chest X-Ray 04/05/20 00:00 IMPRESSION: Mild ill-defined lingular opacities, possibly atelectasis or infection. No significant effusion. Assessment and Plan - Diagnosis (1) Acute respiratory failure with hypoxia Is this a current diagnosis for this admission?: Yes Plan: - developed dyspnea on exertion that gradually started about 1 week prior. Minimal cough, no fever. - O2 sat in the ED to 89%, 93% on room air with nasal cannula - never smoker, no significant cardiac history - CXR unremarkable - CTA chest resolution of the majority of the previously seen pulmonary embolism. Some residual chronic thrombus seen bilaterally. No obvious acute PE. Interval improvement of the previously seen multifocal infiltrate. - BNP 4550 - Trop 0.085>0.072>0.062 - ddx: New onset CHF from NSTEMI or right heart failure from previous PE, PAH, or deconditioning, ILD - echo pending - PFT pending - continue incentive spirometry (2) NSTEMI (non-ST elevated myocardial infarction) Is this a current diagnosis for this admission?: Yes Plan: - came in due to dyspnea on exertion - EKG Sinus rhtyhm LAFB - BNP 4550 - Trop 0.085>0.072>0.062 - trop leak maybe 2/2 new CHF - awaiting echo (3) Left rotator cuff tear Is this a current diagnosis for this admission?: Yes Plan: - has been having chronic pain on her left shoulder for several years - ortho was consulted who recommended ortho follow up outpatient to assess her options for management. -We will not attempt to taper her prednisone while inpatient since she has been on it for years (4) Cellulitis of right lower extremity Is this a current diagnosis for this admission?: Yes Plan: - Dr. Wilkes follows her up outpatient and was planning a procedure hence her eliquis was stopped - no evidence of infection at this time - continue dressing changes per nursing (5) Chronic steroid use Is this a current diagnosis for this admission?: Yes Plan: -has been on prednisone 10 mg for years for a rotator cough tear - Ortho consulted for alternatives to prednisone for shoulder pain - She will need to be tapered off steroids very slowly as she has been on it for years. - per Dr. Temple she can follow up with him to discuss her options (6) Hypothyroidism Qualifiers: Hypothyroidism type: unspecified Qualified Code(s): E03.9 - Hypothyroidism, unspecified Is this a current diagnosis for this admission?: Yes Plan: - resume synthroid (7) Paraplegia Is this a current diagnosis for this admission?: Yes Plan: - 2/2 accident several years ago - Time Time Spent with patient: 25-34 minutes Anticipated Discharge Disposition: Home, Self Care Anticipated Discharge Timeframe: to be determined
--- NOTE | 2020-04-05 20:31 | XCELERA REPORT ---
[address] [address] Transthoracic Echocardiogram Report Name: DINA HAHN Age: 64 yrs Gender: Female : 1955 Patient Status: Inpatient Patient Location: [address] [place], [place] [address] Study Date: 04/05/2020 09:29 AM History: Respiratory failure Height: 68 in Weight: 171 lb BSA: 1.9 m2 Reason For Study: acute respiratory failure with hypoxia Previous Evaluation: A previous study was performed on 09/29/2014 LVEF was normal. History: Shortness of breath. Ordering Physician: MAGNUS LAMA Performed By: Greg Ndiaye Interpretation Summary Left ventricular systolic function is normal. The right ventricle is severely dilated. The right ventricular systolic function is normal. There is a trace amount of mitral regurgitation There is no aortic valve stenosis There is a moderate amount of tricuspid regurgitation There is servere pulmonary hypertension by echo There is no pericardial effusion. MMode/2D Measurements & Calculations RVDd: 2.9 cm LVIDd: 4.8 cm FS: 37.2 % Ao root diam: 2.7 cm IVSd: 0.89 cm LVIDs: 3.0 cm EDV(Teich): 108.7 ml Ao root area: 5.9 cm2 LVPWd: 0.87 cm ESV(Teich): 35.9 ml LA dimension: 3.7 cm EF(Teich): 67.0 % Doppler Measurements & Calculations MV E max ozzy: MV P1/2t max ozzy: Ao V2 max: LV V1 max P.5 cm/sec 62.1 cm/sec 110.8 cm/sec 5.1 mmHg MV A max ozzy: MV P1/2t: 74.8 msec Ao max P.9 mmHg LV V1 max: 79.2 cm/sec MVA(P1/2t): 2.9 cm2 113.0 cm/sec MV E/A: 0.68 MV dec slope: 243.1 cm/sec2 MV dec time: 0.25 sec PA V2 max: TR max ozzy: MV P1/2t-pr_phl: 71.6 cm/sec 454.4 cm/sec 74.8 msec PA max PG: TR max P.6 mmHg 2.0 mmHg Left Ventricle The left ventricle is normal in size. There is mild concentric left ventricular hypertrophy. Left ventricular systolic function is normal. The Ejection Fraction estimate is 55-60%. Doppler measurements suggest impaired left ventricular relaxation, which is associated with grade I/IV or mild diastolic dysfunction. Regional wall motion abnormalities cannot be excluded due to limited visualization. Right Ventricle The right ventricle is severely dilated. The right ventricular systolic function is normal. Atria The right atrium is moderately dilated. The left atrium is borderline dilated. There is no Doppler evidence for an interatrial shunt. The interatrial septum is intact with no evidence for an atrial septal defect. Mitral Valve The mitral valve is grossly normal. There is no mitral valve stenosis. There is a trace amount of mitral regurgitation. Aortic Valve The aortic valve is sclerotic and shows some degree of functional abnormality. The aortic valve opens well. There is no aortic valve stenosis. No aortic regurgitation is present. Tricuspid Valve The tricuspid valve is normal in structure and function. There is no tricuspid stenosis. There is a moderate amount of tricuspid regurgitation. Right ventricular systolic pressure is estimated to be elevated at >60mmHg. There is servere pulmonary hypertension by echo. Pulmonic Valve The pulmonic valve is normal in structure and function. Great Vessels The aortic root is normal size. The inferior vena cava appeared normal and decreased > 50% with respiration (RAP 5-10 mmHg). Effusions There is no pericardial effusion. : MAGNUS LAMA Anil
[2020-04-05] MEDS: LISINOPRIL 10 MG TABLET PO SCH (22:11)
[2020-04-05] MEDS: DOCUSATE SODIUM 100 MG CAPSULE PO SCH (22:12)
[2020-04-06] MEDS: HEPARIN SOD (PORCINE) 5,000 UNIT/ML 1 ML VIAL SUBCUT SCH ×2 (05:13→13:29)
[2020-04-06] MEDS: PANTOPRAZOLE SODIUM 40 MG TABLET.DR PO SCH (05:13)
[2020-04-06] MEDS: LEVOTHYROXINE SODIUM 0.088 MG TABLET PO SCH (05:13)
[2020-04-06] MEDS: PREDNISONE 10 MG TABLET PO SCH (09:28)
[2020-04-06] MEDS: ASPIRIN 81 MG TABLET, CHEWABLE PO SCH (09:28)
[2020-04-06] MEDS: ZINC SULFATE 220 MG CAPSULE PO SCH (09:28)
[2020-04-06] MEDS: POLYETHYLENE GLYCOL 3350 POWDER 17 GM/1 PACKET PO SCH (09:28)
[2020-04-06] MEDS: BACLOFEN 10 MG TABLET PO SCH ×2 (09:28→13:49)
[2020-04-06] MEDS: OXYBUTYNIN CHLORIDE 5 MG TABLET PO SCH ×2 (09:28→13:49)
[2020-04-06] MEDS: FUROSEMIDE INJ/PF 40 MG/4 ML SDV IV SCH (09:30)
[2020-04-06] MEDS ORDERED: COLLAGENASE CLOSTRIDIUM HIST. OINT 30 GM TOP SCH (14:00)
--- NOTE | 2020-04-06 14:01 | PDOC DISCHARGE SUMMARY ---
Impression - Admit/DC Date/PCP Admission Date/Primary Care Provider: 04/03/20 02:23 SHANIA RICHEY MD Discharge Date: 04/06/20 - Discharge Diagnosis (1) Acute respiratory failure with hypoxia Is this a current diagnosis for this admission?: Yes (2) Severe pulmonary arterial systolic hypertension Is this a current diagnosis for this admission?: Yes (3) Chronic pulmonary embolism Is this a current diagnosis for this admission?: Yes (4) Venous ulcer of right leg Is this a current diagnosis for this admission?: Yes (5) Left rotator cuff tear Is this a current diagnosis for this admission?: Yes (6) Chronic steroid use Is this a current diagnosis for this admission?: Yes (7) Hypothyroidism Is this a current diagnosis for this admission?: Yes - Additional Information Resuscitation Status: Full Code Discharge Diet: Cardiac Discharge Activity: Slowly Increase Activity Referrals: MARINA ESCAMILLA MD [ACTIVE STAFF] - 04/13/20 CYNTHIA HOPE NP, BUSINESS ACCOUNT MANAGER [NURSE PRACTITIONER] - Follow up as needed CHELSIE RON MD [ACTIVE STAFF] - ADILSON RAMIREZ JR, DO [ACTIVE PROVISIONAL STAFF] - Prescriptions: Apixaban [Eliquis 5 mg Tablet] 5 mg PO Q12 #60 tablet Furosemide [Lasix 20 mg Tablet] 20 mg PO QAM #30 tablet Collagenase Clostridium Hist. [Santyl Ointment 30 gm] 1 applic TOP DAILY #1 tube Home Medications: Baclofen [Baclofen 10 mg Tablet] 10 mg PO TID 09/28/14 Lisinopril 10 mg PO QHS 09/28/14 Oxybutynin Chloride 5 mg PO TID 09/28/14 Prednisone 10 mg PO DAILY 09/28/14 Levothyroxine Sodium [Synthroid 0.088 mg Tablet] 88 mcg PO DAILY 01/12/20 Ferrous Sulfate [Ferosul] 325 mg PO DAILY 02/17/20 Mv,Calcium,Min/Iron/Folic/Vitk [Multi For Her Tablet] 1 each PO DAILY 02/17/20 Aspirin [Ecotrin 81 mg EC Tablet] 81 mg PO DAILY 04/03/20 Calcium Carbonate/Vitamin D3 [Calcium 600 mg-D3 20 Mcg Tab] 1 each PO DAILY 04/03/20 Docusate Sodium [Colace 100 mg Capsule] 300 mg PO QHS 04/03/20 Apixaban [Eliquis 5 mg Tablet] 5 mg PO Q12 #60 tablet 04/06/20 Collagenase Clostridium Hist. [Santyl Ointment 30 gm] 1 applic TOP DAILY #1 tube 04/06/20 Furosemide [Lasix 20 mg Tablet] 20 mg PO QAM #30 tablet 04/06/20 History of Present Illiness History of Present Illness: According to admitting provider: DINA HAHN is a 64 year old female who presented to the emergency room with a 5-day history of dyspnea. She admits moderate dyspnea developing 5 days ago and being constantly present since onset. Her dyspnea is worsened by exertion. Her dyspnea has been accompanied by an intermittent nonproductive cough and associated with fatigue. She recently discontinued use of her chronic Eliquis therapy (history of pulmonary embolism) for a planned surgery on her left leg. She denies other associated or accompanying signs and symptoms. She admits prior similar symptoms with her pulmonary embolism. She denies identification of any additional aggravating or ameliorating factors for her dyspnea. In the emergency room she was found to have no evidence of DVT on ultrasound examination of the lower extremities and a CTA of the chest revealed no pulmonary emboli and in fact showed improvement of the bibasilar changes in her CTA performed more than a year ago. She was noted to have acute respiratory failure with hypoxia requiring 2 L of oxygen via nasal cannula in order to maintain her oxygen saturation reliably above 93%. She was subsequently admitted to the hospital for further evaluation and treatment. Hospital Course Hospital Course: Patient was admitted to the hospital for acute respiratory failure with hypoxia. On presentation, it was questionable whether patient was truly volume overloaded on assessment. However blood work revealed elevated BNP of 4550 without history of CHF. Patient notably had history of first-time PE about a year ago and had been on Eliquis just stopped recently. Patient was started on treatment with IV Lasix and diuresed adequately. Her hypoxia has now resolved and she is satting well on room air yesterday and today. She is paraplegic and uses a wheelchair and as such does not require any ambulatory pulse ox. She feels well in terms of her breathing and she states it is much improved. Diagnostic studies to figure out the cause of hypoxia include CTA of the chest which shows resolution of most of her previously seen PE but still with some chronic residual thromboembolism bilaterally. Echocardiogram shows severe pulmonary hypertension with very high RVSP measurements and RV dilation while showing largely unremarkable left heart. Patient also denies any history of smoking and denies any history of other pulmonary diseases such as COPD/asthma. 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 Of course, she will need a right heart cath arranged at some point to officially rule out other etiology. I seriously doubt that left heart failure is playing a role here even though echo shows only about a grade 1 diastolic dysfunction. I have discussed with patient who states that Eliquis was recently discontinued to allow for surgery to debride her chronic venous ulcer stage undetermined. However, it is now imperative that patient gets back on the Eliquis given her pulmonary hypertension chronic PE. I will give her a prescription for this. I have encouraged her to talk with Dr. Escamilla who is her primary chemical plant worker regarding further work-up of her pulmonary hypertension and resumption of her Eliquis. She has an appointment already scheduled for Sunday next week. At this time she is stable and not requiring any oxygen and she is ready for discharge. She will need further work-up outpatient for her PH. Also seen for her chronic venous wound and she will be given Santyl to help with chemical debridement.She will also follow-up with orthopedist for management of her left rotator cuff injury-chronic. I have also encouraged her to discuss with her primary care doctor regarding steroid taper. Physical Exam Vital Signs: Temp Pulse Resp BP Pulse Ox 98.5 F 88 16 112/59 L 93 04/06/20 11:36 04/06/20 11:36 04/06/20 11:36 04/06/20 11:36 04/06/20 11:36 Intake & Output 04/05/20 04/06/20 04/07/20 06:59 06:59 06:59 Intake Total 598 2446 218 Output Total 955 6170 500 Balance -357 -364 -282 Weight 82.8 kg 83.9 kg General appearance: PRESENT: no acute distress, cooperative Neck exam: ABSENT: JVD Respiratory exam: PRESENT: clear to auscultation azalea. ABSENT: rales, wheezes Cardiovascular exam: PRESENT: +S1, +S2. ABSENT: tachycardia Neurological exam: PRESENT: alert, awake, oriented to person, oriented to place, oriented to time Psychiatric exam: ABSENT: agitated, anxious Results Laboratory Results: WBC 7.8 10^3/uL (4.0-10.5) 04/05/20 11:19 RBC 4.59 10^6/uL (3.72-5.28) 04/05/20 11:19 Hgb 12.9 g/dL (12.0-15.5) 04/05/20 11:19 Hct 38.4 % (36.0-47.0) 04/05/20 11:19 MCV 84 fl (80-97) 04/05/20 11:19 MCH 28.1 pg (27.0-33.4) 04/05/20 11:19 MCHC 33.6 g/dL (32.0-36.0) 04/05/20 11:19 RDW 15.6 % (11.5-14.0) H 04/05/20 11:19 Plt Count 262 10^3/uL (150-450) 04/05/20 11:19 Lymph % (Auto) 26.2 % (13-45) 04/05/20 11:19 [place] % (Auto) 6.6 % (3-13) 04/05/20 11:19 Eos % (Auto) 2.6 % (0-6) 04/05/20 11:19 Baso % (Auto) 1.3 % (0-2) 04/05/20 11:19 Absolute Neuts (auto) 4.9 10^3/uL (1.7-8.2) 04/05/20 11:19 Absolute Lymphs (auto) 2.0 10^3/uL (0.5-4.7) 04/05/20 11:19 Absolute Monos (auto) 0.5 10^3/uL (0.1-1.4) 04/05/20 11:19 Absolute Eos (auto) 0.2 10^3/uL (0.0-0.6) 04/05/20 11:19 Absolute Basos (auto) 0.1 10^3/uL (0.0-0.2) 04/05/20 11:19 Seg Neutrophils % 63.3 % (42-78) 04/05/20 11:19 Sodium 134.4 mmol/L (137-145) L 04/05/20 11:19 Potassium 4.4 mmol/L (3.6-5.0) 04/05/20 11:19 Chloride 102 mmol/L (98-107) 04/05/20 11:19 Carbon Dioxide 22 mmol/L (22-30) 04/05/20 11:19 Anion Gap 10 (5-19) 04/05/20 11:19 BUN 30 mg/dL (7-20) H 04/05/20 11:19 Creatinine 0.65 mg/dL (0.52-1.25) 04/05/20 11:19 Est GFR ( Amer) > 60 (>60) 04/05/20 11:19 Est GFR (MDRD) Non-Af > 60 (>60) 04/05/20 11:19 Glucose 97 mg/dL (75-110) 04/05/20 11:19 Hemoglobin A1c % 4.8 % (4.7-6.0) 04/02/20 20:15 Lactic Acid 1.3 mmol/L (0.7-2.1) 04/02/20 23:35 Calcium 9.0 mg/dL (8.4-10.2) 04/05/20 11:19 Magnesium 2.2 mg/dL (1.6-2.3) 04/04/20 07:18 Total Bilirubin 0.5 mg/dL (0.2-1.3) 04/05/20 11:19 Direct Bilirubin 0.1 mg/dL (0.0-0.4) 04/05/20 11:19 Neonat Total Bilirubin Not Reportable 04/05/20 11:19 Neonat Direct Bilirubin Not Reportable 04/05/20 11:19 Neonat Indirect Bili Not Reportable 04/05/20 11:19 AST 23 U/L (14-36) 04/05/20 11:19 ALT 17 U/L (<35) 04/05/20 11:19 Alkaline Phosphatase 77 U/L (38-126) 04/05/20 11:19 Creatine Kinase 63 U/L (30-135) 04/03/20 20:10 CK-MB (CK-2) 1.09 ng/mL (<4.55) 04/03/20 20:10 Troponin I 0.061 ng/mL 04/03/20 20:10 NT-Pro-B Natriuret Pep 4550 pg/mL (<125) H 04/02/20 20:15 Total Protein 6.4 g/dL (6.3-8.2) 04/05/20 11:19 Albumin 3.6 g/dL (3.5-5.0) 04/05/20 11:19 Triglycerides 115 mg/dL (<150) 04/02/20 20:15 Cholesterol 191.91 mg/dL (0-200) 04/02/20 20:15 LDL Cholesterol Direct 112 mg/dL (<100) H 04/02/20 20:15 VLDL Cholesterol 23.0 mg/dL (10-31) 04/02/20 20:15 HDL Cholesterol 62 mg/dL (>40) 04/02/20 20:15 TSH 2.05 uIU/mL (0.47-4.68) 04/02/20 20:15 Influenza A (Rapid) NEGATIVE (NEGATIVE) 04/02/20 23:35 Influenza B (Rapid) NEGATIVE (NEGATIVE) 04/02/20 23:35 04/02/20 04/02/20 04/02/20 20:15 20:15 23:35 CK-MB (CK-2) Troponin I 0.085 0.085 NT-Pro-B Natriuret Pep 4550 H 04/03/20 04/03/20 04/03/20 07:55 13:44 20:10 CK-MB (CK-2) 1.56 1.39 1.09 Troponin I 0.072 0.062 0.061 NT-Pro-B Natriuret Pep Impressions: Chest/Abdomen CTA 04/02/20 19:40 IMPRESSION: 1. Resolution of the majority of the previously seen pulmonary embolism. There is some residual chronic thrombus seen bilaterally. No obvious acute PE. 2. Interval improvement of the previously seen multifocal infiltrate though there is some residual opacification in the lung parenchyma bilaterally. Venous Doppler Study 04/02/20 19:40 IMPRESSION: No sonographic evidence of acute DVT within the lower extremities. Questionable chronic DVT changes within the left common femoral vein. Chest X-Ray 04/03/20 00:00 IMPRESSION: NO SIGNIFICANT RADIOGRAPHIC FINDING IN THE CHEST. Chest X-Ray 04/05/20 00:00 IMPRESSION: Mild ill-defined lingular opacities, possibly atelectasis or infection. No significant effusion. Plan Time Spent: Greater than 30 Minutes Stroke Is this a Stroke Patient?: No Acute Heart Failure Is this a Heart Failure Patient?: No
[2020-04-06 14:35] VITALS: BP 96/60
[2020-04-13] MEDS ORDERED: PREDNISONE 1 MG TABLET PO SCH (10:00)
[2020-04-23] MEDS ORDERED: PREDNISONE 1 MG TABLET PO SCH (10:00)
[2020-05-03] MEDS ORDERED: PREDNISONE 1 MG TABLET PO SCH (10:00)
[2020-05-13] MEDS ORDERED: PREDNISONE 1 MG TABLET PO SCH (10:00)
[2020-05-23] MEDS ORDERED: PREDNISONE 1 MG TABLET PO SCH (10:00)
== END 2020-04-06 15:00 | disposition home health service (06) | DRG 189 ==
LOC: ER 19:15 → EH 04-03 02:23 → 4S 04-03 05:40
PROVIDERS: ADMIT Emergency Medicine; ATTEND Internal Medicine
DX: J96.01 Acute respiratory failure with hypoxia (principal); I21.4 Non-ST elevation (NSTEMI) myocardial infarction; G82.20 Paraplegia, unspecified; L97.919 Non-pressure chronic ulcer of unspecified part of right lower leg with unspecified severity; F33.9 Major depressive disorder, recurrent, unspecified; L03.115 Cellulitis of right lower limb; I27.21 Secondary pulmonary arterial hypertension; M75.102 Unspecified rotator cuff tear or rupture of left shoulder, not specified as traumatic; E03.9 Hypothyroidism, unspecified; E78.5 Hyperlipidemia, unspecified; E11.9 Type 2 diabetes mellitus without complications; H26.9 Unspecified cataract; K44.9 Diaphragmatic hernia without obstruction or gangrene; M19.90 Unspecified osteoarthritis, unspecified site; D64.9 Anemia, unspecified; I10 Essential (primary) hypertension; Z79.82 Long term (current) use of aspirin; Z79.52 Long term (current) use of systemic steroids; Z79.01 Long term (current) use of anticoagulants; Z86.711 Personal history of pulmonary embolism; Z83.3 Family history of diabetes mellitus; Z88.3 Allergy status to other anti-infective agents
CPT/HCPCS: 36415; 71045; 71275; 80048; 80053; 80061; 82550; 82553; 83036; 83605; 83735; 83880; 84443; 84484; 85025; 85027; 87040; 87804; 93005; 93010; 93306; 93970; 94799; 96365; 96368; 99285; J0456; J0696; J1644; J1940; J3490; J7030; J7512

== ENCOUNTER → 2020-04-26 | Outpatient (CLI) | payer MEDICARE, OTHER ==
[2020-04-26 13:13] LABS: ABSOLUTE BASOPHILS # (AUTO) 0.1 10^3/uL (0.0-0.2); ABSOLUTE EOSINOPHILS # (AUTO) 0.1 10^3/uL (0.0-0.6); ABSOLUTE LYMPHOCYTES (AUTO) 0.8 10^3/uL (0.5-4.7); ABSOLUTE MONOCYTES (AUTO) 0.4 10^3/uL (0.1-1.4); ABSOLUTE NEUT (AUTO) 12.2 10^3/uL (1.7-8.2); BASOPHILS % (AUTO) 0.4 % (0-2); EOSINOPHILS % (AUTO) 0.8 % (0-6); HEMATOCRIT 41.8 % (36.0-47.0); HEMOGLOBIN 13.9 g/dL (12.0-15.5); LYMPHOCYTES % (AUTO) 6.1 % (13-45); MEAN CORPUSCULAR HEMOGLOBIN 28.1 pg (27.0-33.4); MEAN CORPUSCULAR HGB CONC 33.2 g/dL (32.0-36.0); MEAN CORPUSCULAR VOLUME 85 fl (80-97); MONOCYTES % (AUTO) 3.2 % (3-13); PLATELET COUNT 340 10^3/uL (150-450); RED BLOOD COUNT 4.94 10^6/uL (3.72-5.28); RED CELL DISTRIBUTION WIDTH 15.7 % (11.5-14.0); SEGMENTED NEUTROPHILS % (AUTO) 89.5 % (42-78); TOTAL CELLS COUNTED % (AUTO) 100 %; WHITE BLOOD COUNT 13.6 10^3/uL (4.0-10.5)
--- NOTE | 2020-04-26 13:24 | RADIOLOGY REPORT (SQ) ---
EXAM DESCRIPTION: HIP LEFT AP/LATERAL IMAGES COMPLETED DATE/TIME: 04/26/2020 1:15 pm REASON FOR STUDY: PRESSURE ULCER OF LEFT BUTTOCK, STAGE 4 L89.324 PRESSURE ULCER OF LEFT BUTTOCK, S TAGE 4 COMPARISON: None. NUMBER OF VIEWS: Two views. TECHNIQUE: AP and frog-leg view of the left hip. LIMITATIONS: None. FINDINGS: MINERALIZATION: Normal. LEFT HIP: No fracture or dislocation. No worrisome bone lesions. No contour deformity. No joint spa ce narrowing. OPPOSITE HIP: No fracture or dislocation. No worrisome bone lesions. SOFT TISSUES: No findings. OTHER: There is irregularity of the inferior pubic ramus on the left. Overlying soft tissue defect. Changes may be secondary to chronic osteomyelitis. IMPRESSION: Irregularity along the inferior pubic ramus on the left overlying soft tissue defect. C hanges may be secondary to chronic osteomyelitis. TECHNICAL DOCUMENTATION: JOB ID: [id number] 2010 [employer]- All Rights Reserved Reading location - IP/workstation name: [email or web address]
[2020-04-26 13:44] LABS: ALBUMIN 4.1 g/dL (3.5-5.0); ALKALINE PHOSPHATASE 68 U/L (38-126); ANION GAP 15 (5-19); ASPARTATE AMINO TRANSFERASE 22 U/L (14-36); BILIRUBIN,DIRECT 0.2 mg/dL (0.0-0.4); BILIRUBIN,TOTAL 0.5 mg/dL (0.2-1.3); BLOOD UREA NITROGEN 36 mg/dL (7-20); C-REACTIVE PROTEIN 27.8 mg/L (<10.0); CALCIUM 9.6 mg/dL (8.4-10.2); CARBON DIOXIDE 20 mmol/L (22-30); CHLORIDE 101 mmol/L (98-107); GLUCOSE 107 mg/dL (75-110); POTASSIUM 4.3 mmol/L (3.6-5.0); TOTAL PROTEIN 6.7 g/dL (6.3-8.2)
[2020-04-26 14:04] LABS: ERYTHROCYTE SEDIMENTATION RATE 30 mm/hr (0-30)
== END ==
LOC: OD 12:25
PROVIDERS: ATTEND Nurse Practitioner Family
DX: L89.324 Pressure ulcer of left buttock, stage 4 (principal)
CPT/HCPCS: 36415; 80053; 85025; 85652; 86140

== ENCOUNTER → 2020-07-01 | Outpatient (CLI) | payer MEDICARE, OTHER ==
--- NOTE | 2020-07-01 16:29 | RADIOLOGY REPORT (SQ) ---
EXAM DESCRIPTION: CHEST 2 VIEWS IMAGES COMPLETED DATE/TIME: 07/01/2020 3:13 pm REASON FOR STUDY: ABN CHEST XRAY COMPARISON: 04/05/2020 EXAM PARAMETERS: NUMBER OF VIEWS: two views TECHNIQUE: Digital Frontal and Lateral radiographic views of the chest acquired. RADIATION DOSE: NA LIMITATIONS: none FINDINGS: LUNGS AND PLEURA: No opacities, masses or pneumothorax. No pleural effusion. MEDIASTINUM AND HILAR STRUCTURES: No masses or contour abnormalities. HEART AND VASCULAR STRUCTURES: Heart normal size. No evidence for failure. BONES: No acute findings. HARDWARE: Spinal hardware. OTHER: No other significant finding. IMPRESSION: NO ACUTE RADIOGRAPHIC FINDING IN THE CHEST. TECHNICAL DOCUMENTATION: JOB ID: [id number] 2010 [employer]- All Rights Reserved Reading location - IP/workstation name: [email or web address]
--- NOTE | 2020-07-01 16:32 | RADIOLOGY REPORT (SQ) ---
EXAM DESCRIPTION: HIP LEFT AP/LATERAL IMAGES COMPLETED DATE/TIME: 07/01/2020 3:13 pm REASON FOR STUDY: OTHER SPECIFIED LOCAL INFECTIONS OF THE SKIN AND SUBCUTANEOUS TISSUE L08.89 OTH L OCAL INFECTIONS OF THE SKIN AND SUBCUTANEOUS TIS COMPARISON: 04/26/2020 NUMBER OF VIEWS: Two views. TECHNIQUE: AP pelvis and additional frog legview of the left hip. LIMITATIONS: None. FINDINGS: MINERALIZATION: Normal. LEFT HIP: No fracture or dislocation. No worrisome bone lesions. RIGHT HIP: No fracture or dislocation. No worrisome bone lesions. Limited views. PUBIS AND ISCHIUM: There is irregular mineralization of the left ischium. The inferior cortex is ind istinct. There is an adjacent soft tissue lesion. PELVIS: No fracture. SACRUM: No fracture or dislocation. No worrisome bone lesions. LOWER LUMBAR SPINE: No fracture or dislocation. No worrisome bone lesions. No significant disc disea se. SOFT TISSUES: No findings. OTHER: No other significant finding. IMPRESSION: Cannot exclude osteomyelitis in the left ischium. No acute osseous finding in the hip. TECHNICAL DOCUMENTATION: JOB ID: [id number] 2010 [employer]- All Rights Reserved Reading location - IP/workstation name: [email or web address]
[2020-07-02 12:16] LABS: ABSOLUTE EOSINOPHILS # (AUTO) 0.1 10^3/uL (0.0-0.6); ABSOLUTE LYMPHOCYTES (AUTO) 1.1 10^3/uL (0.5-4.7); ABSOLUTE MONOCYTES (AUTO) 0.3 10^3/uL (0.1-1.4); ABSOLUTE NEUT (AUTO) 10.2 10^3/uL (1.7-8.2); BASOPHILS % (AUTO) 0.3 % (0-2); EOSINOPHILS % (AUTO) 0.4 % (0-6); HEMATOCRIT 43.2 % (36.0-47.0); HEMOGLOBIN 13.7 g/dL (12.0-15.5); LYMPHOCYTES % (AUTO) 9.2 % (13-45); MEAN CORPUSCULAR HEMOGLOBIN 26.4 pg (27.0-33.4); MEAN CORPUSCULAR HGB CONC 31.7 g/dL (32.0-36.0); MEAN CORPUSCULAR VOLUME 83 fl (80-97); MONOCYTES % (AUTO) 2.9 % (3-13); PLATELET COUNT 324 10^3/uL (150-450); RED BLOOD COUNT 5.19 10^6/uL (3.72-5.28); RED CELL DISTRIBUTION WIDTH 15.3 % (11.5-14.0); SEGMENTED NEUTROPHILS % (AUTO) 87.2 % (42-78); TOTAL CELLS COUNTED % (AUTO) 100 %; WHITE BLOOD COUNT 11.7 10^3/uL (4.0-10.5)
[2020-07-02 12:42] LABS: ALBUMIN 3.9 g/dL (3.5-5.0); ALKALINE PHOSPHATASE 60 U/L (38-126); ANION GAP 8 (5-19); ASPARTATE AMINO TRANSFERASE 20 U/L (14-36); BILIRUBIN,DIRECT 0.2 mg/dL (0.0-0.4); BILIRUBIN,TOTAL 0.6 mg/dL (0.2-1.3); BLOOD UREA NITROGEN 31 mg/dL (7-20); C-REACTIVE PROTEIN 47.1 mg/L (<10.0); CALCIUM 9.2 mg/dL (8.4-10.2); CARBON DIOXIDE 24 mmol/L (22-30); CHLORIDE 101 mmol/L (98-107); GLUCOSE 139 mg/dL (75-110); POTASSIUM 4.1 mmol/L (3.6-5.0); TOTAL PROTEIN 6.8 g/dL (6.3-8.2)
[2020-07-02 12:55] LABS: ERYTHROCYTE SEDIMENTATION RATE 39 mm/hr (0-30)
== END ==
LOC: RAD 14:28
PROVIDERS: ATTEND Nurse Practitioner Family
DX: R93.89 Abnormal findings on diagnostic imaging of other specified body structures (principal); L08.89 Other specified local infections of the skin and subcutaneous tissue
CPT/HCPCS: 36415; 71046; 80053; 85025; 85652; 86140